=== PATIENT | male | born 1950 | race Caucasian/White ===

== ENCOUNTER 2017-02-25 12:12 | Day surgery (SDC) | payer MEDICARE ==
[2017-02-24 09:03] VITALS: BMI 30.1
[~2017-02-25 12:12] MED LIST: LIDOCAINE 1% 20 ML VIAL (10MG/ML) FOR IV START INTRADERMA PRN
[2017-02-25 12:41] VITALS: RESP 18; TEMP 98.8
[2017-02-25 12:57] LABS: Glucose,Whole Blood 141 mg/dL (75-99)
[2017-02-25] MEDS: LACTATED RINGERS 1,000 ML IV SCH ×2 (12:58→13:13)
[2017-02-25] MEDS ORDERED: ONDANSETRON 4 MG/2 ML VIAL IM STA (13:00)
[2017-02-25] MEDS ORDERED: LIDOCAINE 1% INJ 10MG/ML (20 ML MDV) ONE (13:15)
[2017-02-25] MEDS ORDERED: PROPOFOL 10 MG/ML 20 ML VIAL IV ONE (13:15)
--- NOTE | 2017-02-25 13:51 | P.PCN ---
Date of Procedure: 02/25/17 Procedure(s) Performed: Procedure: Total colonoscopy. Preoperative diagnosis: Screening for neoplasia. Postoperative diagnosis: Sigmoid diverticulosis with no evidence of acute diverticulitis, strictures, polyps or cancer. Preparation: HalfLytely prep. Sedation: Was provided by anesthesia. Brief clinical history: The patient is 66-year-old male who is referred for this evaluation for screening for neoplasia age being his risk factor. He had a prior exam around 9 years ago. At this time, he has no abdominal complaints, bleeding or anemia. No family history of colon cancer. Procedure: With the patient on his left lateral decubitus position and after informed consent and adequate sedation, the perianal area was inspected and it did not show any fissures or fistulas. There were no masses felt on digital rectal examination. The Olympus CFQ 160L video colonoscope was then inserted in the rectum in the usual fashion and advanced to the cecum. There were multiple diverticular orifices seen scattered in the sigmoid but I saw no evidence of acute diverticulitis or strictures. No obvious polyps or tumors were seen. I retroflexed endoscope in the rectum and the endoscope was withdrawn. The patient tolerated the procedure well. Plan: The patient was reassured. Discussed dietary measures. He will follow up with you as planned. I recommended repeat exam in 10 years.
[2017-02-25 14:07] VITALS: BP 130/71; PULSE 71
== END 2017-02-25 14:36 | disposition home or self-care (01) ==
LOC: ORWHC2ENDO 12:12
DX: Z12.11 Encounter for screening for malignant neoplasm of colon (principal); K57.30 Diverticulosis of large intestine without perforation or abscess without bleeding; E11.9 Type 2 diabetes mellitus without complications; I10 Essential (primary) hypertension; E78.5 Hyperlipidemia, unspecified; J45.909 Unspecified asthma, uncomplicated; Z91.09 Other allergy status, other than to drugs and biological substances; Z79.84 Long term (current) use of oral hypoglycemic drugs; Z79.51 Long term (current) use of inhaled steroids; Z79.899 Other long term (current) drug therapy
CPT/HCPCS: J2001; J2704; G0121; 45378

== ENCOUNTER 2019-10-24 17:40 | Inpatient (IN) | payer MEDICARE ==
[2019-10-24 17:46] LABS: Glucose,Whole Blood 270 mg/dL (75-99)
[2019-10-24] MEDS ORDERED: ONDANSETRON 4 MG/2 ML VIAL IVP STA (17:49)
[2019-10-24] MEDS ORDERED: fentaNYL (PF) 50 MCG/ML 2 ML AMP IVP STA ×2 (17:49→19:12)
[2019-10-24] MEDS ORDERED: SODIUM CHLORIDE 0.9% 1,000 ML IV STA (17:51)
[2019-10-24 18:11] LABS: Basophils # (A) 0.1 k/uL (0-0.2); Basophils % (A) 0 %; Eosinophils # (A) 0.3 k/uL (0-0.7); Eosinophils % (A) 1 %; HGB 14.4 gm/dL (13.0-17.5); Lymphocytes # (A) 2.5 k/uL (1.0-4.8); Lymphocytes % (A) 11 %; MCH 31.6 pg (25.0-35.0); MCHC 34.4 g/dL (31.0-37.0); MCV 91.9 fL (80.0-100.0); Mean Platelet Volume 7.2; Monocytes # (A) 1.1 k/uL (0-1.0); Monocytes % (A) 5 %; Neutrophils # (A) 18.9 k/uL (1.3-7.7); Neutrophils % (A) 82 %; Platelet Count 245 k/uL (150-450); RBC 4.57 m/uL (4.30-5.90); RDW 12.5 % (11.5-15.5)
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
--- NOTE | 2019-10-24 18:20 | XR ---
EXAMINATION TYPE: XR pelvis AP view DATE OF EXAM: 10/24/2019 COMPARISON: NONE HISTORY: Pain TECHNIQUE: Single view FINDINGS: Pelvic ring is intact. Proximal femurs and hip joints are intact and sacroiliac joints appe ar normal. IMPRESSION: Normal exam. No fracture seen.
[2019-10-24 18:23] LABS: ALT 44 U/L (21-72); AST 40 U/L (17-59); African American GFR (CKD) >90 (>60 ml/min/1.73 sqM); Alcohol <10 mg/dL; Alkaline Phosphatase 57 U/L (38-126); Amylase 59 U/L (30-110); Anion Gap 7 mmol/L; Blood Urea Nitrogen 38 mg/dL (9-20); Calcium 9.4 mg/dL (8.4-10.2); Carbon Dioxide 27 mmol/L (22-30); Chloride 106 mmol/L (98-107); Glucose 251 mg/dL (74-99); Non-African American GFR(CKD) >90 (>60 ml/min/1.73 sqM); Potassium 4.2 mmol/L (3.5-5.1); Sodium 140 mmol/L (137-145); Total Bilirubin 0.4 mg/dL (0.2-1.3); Total Protein 6.5 g/dL (6.3-8.2)
[2019-10-24] MEDS ORDERED: PIPERACILLIN-TAZOBACTAM 3.375 GM in SODIUM CHLORIDE 0.9% 100 ML IVPB STA (18:29)
[2019-10-24 18:41] LABS: Creatine Kinase MB 21.9 ng/mL (0.0-2.4); Troponin I <0.012 ng/mL (0.000-0.034)
[2019-10-24 18:42] LABS: INR 0.9 (<1.2); Prothrombin Time 10.2 sec (9.0-12.0)
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
[2019-10-24 18:45] LABS: Creatine Kinase 1124 U/L (55-170)
--- NOTE | 2019-10-24 18:46 | ED ---
Trauma HPI - General Chief Complaint: Trauma Stated Complaint: crushing injury Time Seen by Provider: 10/24/19 17:45 Source: EMS Mode of arrival: EMS Limitations: no limitations - History of Present Illness Initial Comments: The patient is a 69-year-old male with past history of asthma, diabetes and hypertension presents emergency room and after he was crushed by a bull. 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 He sustained blunt head trauma and possibly lost consciousness. No confusion or headaches reported from the patient. He did sustain severe facial trauma with multiple lac and epistaxis. Patient is most concerned with his left-sided posterior chest wall pain. States he cannot take a full breath because of the pain. He sustained blunt trauma to his thorax and abdomen. Patient also has a hematoma noted to his left forearm and bilateral anterior femurs. He was ambulatory after the incident. IV was established however the patient was not given any medications. Vitals were stable. The patient denies ripping or tearing sensation to his back. Denies any numbness or tingling in his extremities. No loss of range of motion. There are no other alleviating, precipitating or modifying factors - Related Data Home Medications Medication Instructions Recorded Confirmed Glimepiride [Amaryl] 2 mg PO AC-BRKFST 02/24/17 10/24/19 Lisinopril-Hctz 20-25 mg 1 tab PO DAILY 02/24/17 10/24/19 [Zestoretic 20-25] Venlafaxine HCl [Effexor] 75 mg PO TID 02/24/17 10/24/19 metFORMIN HCL 1,000 mg PO BID 02/24/17 10/24/19 Mometasone/Formoterol [Dulera 200 2 puff INHALATION BID 10/25/19 10/25/19 Mcg/5 Mcg Inhaler] Previous Rx's Medication Instructions Recorded Nystatin 100,000 Unit/ml Susp 500,000 unit PO QID #140 ml 10/29/19 [Mycostatin Oral Susp] Tamsulosin [Flomax] 0.4 mg PO PC-BRKFST #30 cap.er.24h 10/29/19 traMADol HCL 1 - 2 tab PO Q6HR PRN #30 tablet 10/29/19 Allergies Allergy/AdvReac Type Severity Reaction Status Date / Time hay Allergy Itching Uncoded 10/25/19 10:31 Review of Systems ROS Statement: Those systems with pertinent positive or pertinent negative responses have been documented in the HPI. ROS Other: All systems not noted in ROS Statement are negative. Past Medical History Past Medical History: Asthma, Diabetes Mellitus, Hyperlipidemia, Hypertension History of Any Multi-Drug Resistant Organisms: None Reported Additional Past Surgical History / Comment(s): colonoscopy Past Anesthesia/Blood Transfusion Reactions: No Reported Reaction Past Psychological History: Depression Smoking Status: Never smoker Past Alcohol Use History: None Reported Past Drug Use History: None Reported - Past Family History Father Family Medical History: Cancer General Exam Limitations: no limitations General appearance: alert, in distress Head exam: Present: other (4 lacerations noted - left forehead measuring 2.0 x 0.5 cm each. There are parallel to each other. Mild involvement of the subq tissue. No deep structure involvement. Right philtrum laceration measures 5.0 x 2.0 cm. Deep involvement in the dermis but no damage to vascular structures. Does not communicate to the oral cavity. Left jaw laceration measures 6.0 x 2.0 cm. Underlying mandible is visible. No damage to vascular or nerve structures. No retained foreign bodies. No step offs appreciated. ) Eye exam: Present: PERRL, EOMI, periorbital swelling, other (no entraptment identified) Pupils: Present: normal accommodation ENT exam: Present: other (epistaxis bilaterally. ) Neck exam: Present: normal inspection, other (c-collar in place). Absent: tenderness Respiratory exam: Present: rales (left side), chest wall tenderness, decreased breath sounds, other (patient is splinting and refuses to take a deep breath. he has tenderness to palpation of the left chest wall, anterior middle ribs and posterior superior ribs. ). Absent: wheezes, rhonchi Cardiovascular Exam: Present: regular rate, normal rhythm GI/Abdominal exam: Present: soft. Absent: distended, tenderness, guarding, rebound, rigid Rectal exam: Present: normal rectal tone exam: Present: other (abrasion right groin) Extremities exam: Present: tenderness (anterior thighs bilaterally with ecchymosis. Hematoma left dorsal forearm. ) Back exam: Present: paraspinal tenderness (thoracic and lumbar) Neurological exam: Present: alert, oriented X3, CN II-XII intact Psychiatric exam: Present: normal affect, normal mood Skin exam: Present: warm, dry, intact Course Vital Signs 10/24/19 10/24/19 17:44 20:51 Temperature 97.7 F Pulse Rate 65 64 Respiratory 16 18 Rate Blood Pressure 110/81 98/63 O2 Sat by Pulse 95 99 Oximetry Procedures - FAST Exam Fluid in Morison's pouch: No Fluid in Splenorenal Junction: No Fluid around bladder, Transverse view: No Fluid around bladder, Sagittal view: No Limited Echocardiogram view: parasternal Fluid in Pericardial Sac: No Gross Wall Motion Abnormality: No Study normal for this patient: Yes Images saved for further review: Yes - Laceration Laceration #1 Consent Obtained: verbal consent Indication: laceration Site: face, other (left eyebrow) Size (cm): 2 (cm - two lacerations both with this measurement) Description: linear Depth: simple, single layer Anesthetic Used: lidocaine 1%, without epi Amount (mls): 2 (cc) Pre-repair: wound explored, irrigated extensively, deep structures intact Type of Sutures: nylon Size of Sutures: 6-0 Number of Sutures: 3 (sutures performed between the 2 lacerations, 1 in the top laceration and 2 in the bottom laceration) Technique: simple, interrupted Patient Tolerated Procedure: well, no complications Laceration #2 Consent Obtained: verbal consent Indication: laceration Site: other (right philtrum) Size (cm): 5 (cm) Description: linear Depth: involves muscle layer Anesthetic Used: lidocaine 1%, without epi Anesthesia Technique: local infiltration Amount (mls): 3 (cc) Pre-repair: wound explored, irrigated extensively, deep structures intact Type of Sutures: nylon Size of Sutures: 6-0 Number of Sutures: 4 (nylon sutures, 2 additional 6-0 vicryl sutures in the subq tissue) Technique: simple, interrupted Patient Tolerated Procedure: well, no complications Laceration #3 Consent Obtained: verbal consent Indication: laceration Site: other (left jaw) Size (cm): 6 (cm) Description: linear Depth: involves muscle layer Anesthetic Used: lidocaine 1%, without epi Amount (mls): 4 (cc) Pre-repair: wound explored, irrigated extensively Type of Sutures: nylon Size of Sutures: 6-0 Number of Sutures: 7 (superficial nylon sutures with 2 additional 6-0 vicryl sutures reapproximating the subq tissue) Technique: simple, interrupted Patient Tolerated Procedure: well, no complications Medical Decision Making - Medical Decision Making Upon arrival the patient is promptly placed in trauma bay 2. Initial assessment demonstrates the airway is patent. The patient has poor inspiratory effort therefore breath sounds are difficult to auscultate. He does have 2+ upper and lower external pulses. Disability is assessed and the patient is alert and oriented 3. We did place him in a c-collar. He arrives on a backboard. Pupils are 4-2 bilaterally. He does have a laceration noted over the left eye brow, right sided philtrum and left jaw. A second IV line is started. 12-lead EKG is performed. I also performed an e-FAST exam which was negative. The patient is rolled and has multiple areas of ecchymosis noted to his bilateral paraspinal regions. The patient does not have tenderness to palpation of the spinous processes. He maintains rectal tone. A portable chest and pelvic x-ray was performed which demonstrated no acute fractures or pneumothoraces. Laboratory studies were conducted and the patient went for multiple imaging modalities. Lab studies demonstrate a low blood cell count of 23,000. BNP 138, 270, lactic acid 3.1, CK 1124. Serum alcohol less than 10. CT of the head and cervical spine demonstrates left frontal scalp hematoma Or sinusitis no intracranial abnormality. No fractures are in CT of the chest abdomen and pelvis demonstrates multiple left-sided rib fractures. This includes a nondisplaced fracture of the posterior left second rib. Fracture of the left p osterior third rib at the costovertebral junction. On displaced fracture of the anterior left seventh rib and probable fracture of the anterior left sixth rib. There is a small adjacent pleural effusion. Thoracic and lumbar spine CT demonstrates no acute vertebral fractures. Facial CT demonstrates left frontal scalp soft tissue swelling and hematoma with no fractures formarm x-ray shows posterior soft tissue swelling with no fracture. 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 I did perform suture repair the patient's facial lacerations with sterile technique. 2 lacerations above the left eyebrow do take 3 sutures total. The right philtrum laceration takes 2 subcutaneous stitches and 4 superficial stitches. The left jaw laceration does expose down to the bone. He performed 2 subcutaneous stitches as well as 7 superficial stitches. I discussed results with the patient and his family at bedside. I did recommend hospital admission for pain control. The patient did agree to this. Dr. Matos because presents to the emergency room and evaluates the patient herself. The patient is then transported to the floor in stable condition - Lab Data Result diagrams: 11/01/19 06:25 10/31/19 06:51 Lab Results 10/24/19 10/24/19 10/24/19 Range/Units 17:44 17:52 17:52 WBC 23.0 H (3.8-10.6) k/uL RBC 4.57 (4.30-5.90) m/uL Hgb 14.4 (13.0-17.5) gm/dL Hct 42.0 (39.0-53.0) % MCV 91.9 (80.0-100.0) fL MCH 31.6 (25.0-35.0) pg MCHC 34.4 (31.0-37.0) g/dL RDW 12.5 (11.5-15.5) % Plt Count 245 (150-450) k/uL Neutrophils % 82 % Lymphocytes % 11 % Monocytes % 5 % Eosinophils % 1 % Basophils % 0 % Neutrophils # 18.9 H (1.3-7.7) k/uL Lymphocytes # 2.5 (1.0-4.8) k/uL Monocytes # 1.1 H (0-1.0) k/uL Eosinophils # 0.3 (0-0.7) k/uL Basophils # 0.1 (0-0.2) k/uL PT (9.0-12.0) sec INR (<1.2) APTT (22.0-30.0) sec Sodium 140 (137-145) mmol/L Potassium 4.2 (3.5-5.1) mmol/L Chloride 106 (98-107) mmol/L Carbon Dioxide 27 (22-30) mmol/L Anion Gap 7 mmol/L BUN 38 H (9-20) mg/dL Creatinine 0.83 (0.66-1.25) mg/dL Est GFR (CKD-EPI)AfAm >90 (>60 ml/min/1.73 sqM) Est GFR (CKD-EPI)NonAf >90 (>60 ml/min/1.73 sqM) Glucose 251 H (74-99) mg/dL POC Glucose (mg/dL) 270 H (75-99) mg/dL POC Glu Fish Culturist ID Shayna Poole Lactic Ac Sepsis Rflx Plasma Lactic Acid Nathanael (0.7-2.0) mmol/L Calcium 9.4 (8.4-10.2) mg/dL Total Bilirubin 0.4 (0.2-1.3) mg/dL AST 40 (17-59) U/L ALT 44 (21-72) U/L Alkaline Phosphatase 57 (38-126) U/L Creatine Kinase (55-170) U/L Total Creatine Kinase (55-170) U/L CK-MB (CK-2) (0.0-2.4) ng/mL CK-MB (CK-2) Rel Index Myoglobin (28-72) ng/mL Troponin I (0.000-0.034) ng/mL Total Protein 6.5 (6.3-8.2) g/dL Albumin 4.0 (3.5-5.0) g/dL Amylase 59 (30-110) U/L Lipase 75 (23-300) U/L Urine Color Urine Appearance (Clear) Urine pH (5.0-8.0) Ur Specific [place] (1.001-1.035) Urine Protein (Negative) Urine Glucose (UA) (Negative) Urine Ketones (Negative) Urine Blood (Negative) Urine Nitrite (Negative) Urine Bilirubin (Negative) Urine Urobilinogen (<2.0) mg/dL Ur Leukocyte Esterase (Negative) Urine RBC (0-5) /hpf Urine WBC (0-5) /hpf Ur Squamous Epith Cells (0-4) /hpf Urine Bacteria (None) /hpf Hyaline Casts (0-2) /lpf Urine Mucus (None) /hpf Urine Opiates Screen (NotDetected) Ur Oxycodone Screen (NotDetected) Urine Methadone Screen (NotDetected) Ur Propoxyphene Screen (NotDetected) Ur Barbiturates Screen (NotDetected) U Tricyclic Antidepress (NotDetected) Ur Phencyclidine Scrn (NotDetected) Ur Amphetamines Screen (NotDetected) U Methamphetamines Scrn (NotDetected) U Benzodiazepines Scrn (NotDetected) Urine Cocaine Screen (NotDetected) U Marijuana (THC) Screen (NotDetected) Serum Alcohol <10 mg/dL Blood Type Blood Type Confirm Blood Type Recheck Bld Type Recheck Status Antibody Screen Spec Expiration Date 10/24/19 10/24/19 10/24/19 Range/Units 17:52 17:52 17:52 WBC (3.8-10.6) k/uL RBC (4.30-5.90) m/uL Hgb (13.0-17.5) gm/dL Hct (39.0-53.0) % MCV (80.0-100.0) fL MCH (25.0-35.0) pg MCHC (31.0-37.0) g/dL RDW (11.5-15.5) % Plt Count (150-450) k/uL Neutrophils % % Lymphocytes % % Monocytes % % Eosinophils % % Basophils % % Neutrophils # (1.3-7.7) k/uL Lymphocytes # (1.0-4.8) k/uL Monocytes # (0-1.0) k/uL Eosinophils # (0-0.7) k/uL Basophils # (0-0.2) k/uL PT 10.2 (9.0-12.0) sec INR 0.9 (<1.2) APTT 21.0 L (22.0-30.0) sec Sodium (137-145) mmol/L Potassium (3.5-5.1) mmol/L Chloride (98-107) mmol/L Carbon Dioxide (22-30) mmol/L Anion Gap mmol/L BUN (9-20) mg/dL Creatinine (0.66-1.25) mg/dL Est GFR (CKD-EPI)AfAm (>60 ml/min/1.73 sqM) Est GFR (CKD-EPI)NonAf (>60 ml/min/1.73 sqM) Glucose (74-99) mg/dL POC Glucose (mg/dL) (75-99) mg/dL POC Glu Fish Culturist ID Lactic Ac Sepsis Rflx Plasma Lactic Acid Nathanael 3.4 H* (0.7-2.0) mmol/L Calcium (8.4-10.2) mg/dL Total Bilirubin (0.2-1.3) mg/dL AST (17-59) U/L ALT (21-72) U/L Alkaline Phosphatase (38-126) U/L Creatine Kinase (55-170) U/L Total Creatine Kinase 1124 H* (55-170) U/L CK-MB (CK-2) 21.9 H (0.0-2.4) ng/mL CK-MB (CK-2) Rel Index 1.9 Myoglobin (28-72) ng/mL Troponin I <0.012 (0.000-0.034) ng/mL Total Protein (6.3-8.2) g/dL Albumin (3.5-5.0) g/dL Amylase (30-110) U/L Lipase (23-300) U/L Urine Color Urine Appearance (Clear) Urine pH (5.0-8.0) Ur Specific [place] (1.001-1.035) Urine Protein (Negative) Urine Glucose (UA) (Negative) Urine Ketones (Negative) Urine Blood (Negative) Urine Nitrite (Negative) Urine Bilirubin (Negative) Urine Urobilinogen (<2.0) mg/dL Ur Leukocyte Esterase (Negative) Urine RBC (0-5) /hpf Urine WBC (0-5) /hpf Ur Squamous Epith Cells (0-4) /hpf Urine Bacteria (None) /hpf Hyaline Casts (0-2) /lpf Urine Mucus (None) /hpf Urine Opiates Screen (NotDetected) Ur Oxycodone Screen (NotDetected) Urine Methadone Screen (NotDetected) Ur Propoxyphene Screen (NotDetected) Ur Barbiturates Screen (NotDetected) U Tricyclic Antidepress (NotDetected) Ur Phencyclidine Scrn (NotDetected) Ur Amphetamines Screen (NotDetected) U Methamphetamines Scrn (NotDetected) U Benzodiazepines Scrn (NotDetected) Urine Cocaine Screen (NotDetected) U Marijuana (THC) Screen (NotDetected) Serum Alcohol mg/dL Blood Type Blood Type Confirm Blood Type Recheck Bld Type Recheck Status Antibody Screen Spec Expiration Date 10/24/19 10/24/19 10/24/19 Range/Units 17:52 18:16 18:27 WBC (3.8-10.6) k/uL RBC (4.30-5.90) m/uL Hgb (13.0-17.5) gm/dL Hct (39.0-53.0) % MCV (80.0-100.0) fL MCH (25.0-35.0) pg MCHC (31.0-37.0) g/dL RDW (11.5-15.5) % Plt Count (150-450) k/uL Neutrophils % % Lymphocytes % % Monocytes % % Eosinophils % % Basophils % % Neutrophils # (1.3-7.7) k/uL Lymphocytes # (1.0-4.8) k/uL Monocytes # (0-1.0) k/uL Eosinophils # (0-0.7) k/uL Basophils # (0-0.2) k/uL PT (9.0-12.0) sec INR (<1.2) APTT (22.0-30.0) sec Sodium (137-145) mmol/L Potassium (3.5-5.1) mmol/L Chloride (98-107) mmol/L Carbon Dioxide (22-30) mmol/L Anion Gap mmol/L BUN (9-20) mg/dL Creatinine (0.66-1.25) mg/dL Est GFR (CKD-EPI)AfAm (>60 ml/min/1.73 sqM) Est GFR (CKD-EPI)NonAf (>60 ml/min/1.73 sqM) Glucose (74-99) mg/dL POC Glucose (mg/dL) (75-99) mg/dL POC Glu Fish Culturist ID Lactic Ac Sepsis Rflx Y Plasma Lactic Acid Nathanael (0.7-2.0) mmol/L Calcium (8.4-10.2) mg/dL Total Bilirubin (0.2-1.3) mg/dL AST (17-59) U/L ALT (21-72) U/L Alkaline Phosphatase (38-126) U/L Creatine Kinase (55-170) U/L Total Creatine Kinase (55-170) U/L CK-MB (CK-2) (0.0-2.4) ng/mL CK-MB (CK-2) Rel Index Myoglobin (28-72) ng/mL Troponin I (0.000-0.034) ng/mL Total Protein (6.3-8.2) g/dL Albumin (3.5-5.0) g/dL Amylase (30-110) U/L Lipase (23-300) U/L Urine Color Urine Appearance (Clear) Urine pH (5.0-8.0) Ur Specific [place] (1.001-1.035) Urine Protein (Negative) Urine Glucose (UA) (Negative) Urine Ketones (Negative) Urine Blood (Negative) Urine Nitrite (Negative) Urine Bilirubin (Negative) Urine Urobilinogen (<2.0) mg/dL Ur Leukocyte Esterase (Negative) Urine RBC (0-5) /hpf Urine WBC (0-5) /hpf Ur Squamous Epith Cells (0-4) /hpf Urine Bacteria (None) /hpf Hyaline Casts (0-2) /lpf Urine Mucus (None) /hpf Urine Opiates Screen (NotDetected) Ur Oxycodone Screen (NotDetected) Urine Methadone Screen (NotDetected) Ur Propoxyphene Screen (NotDetected) Ur Barbiturates Screen (NotDetected) U Tricyclic Antidepress (NotDetected) Ur Phencyclidine Scrn (NotDetected) Ur Amphetamines Screen (NotDetected) U Methamphetamines Scrn (NotDetected) U Benzodiazepines Scrn (NotDetected) Urine Cocaine Screen (NotDetected) U Marijuana (THC) Screen (NotDetected) Serum Alcohol mg/dL Blood Type A Positive Blood Type Confirm A Positive Blood Type Recheck No Previous Record Bld Type Recheck Status CABO Indicated Antibody Screen NEGATIVE Spec Expiration Date 10/27/2019235110/24/19 10/24/19 10/24/19 Range/Units 22:56 23:23 23:43 WBC (3.8-10.6) k/uL RBC (4.30-5.90) m/uL Hgb (13.0-17.5) gm/dL Hct (39.0-53.0) % MCV (80.0-100.0) fL MCH (25.0-35.0) pg MCHC (31.0-37.0) g/dL RDW (11.5-15.5) % Plt Count (150-450) k/uL Neutrophils % % Lymphocytes % % Monocytes % % Eosinophils % % Basophils % % Neutrophils # (1.3-7.7) k/uL Lymphocytes # (1.0-4.8) k/uL Monocytes # (0-1.0) k/uL Eosinophils # (0-0.7) k/uL Basophils # (0-0.2) k/uL PT (9.0-12.0) sec INR (<1.2) APTT (22.0-30.0) sec Sodium (137-145) mmol/L Potassium (3.5-5.1) mmol/L Chloride (98-107) mmol/L Carbon Dioxide (22-30) mmol/L Anion Gap mmol/L BUN (9-20) mg/dL Creatinine (0.66-1.25) mg/dL Est GFR (CKD-EPI)AfAm (>60 ml/min/1.73 sqM) Est GFR (CKD-EPI)NonAf (>60 ml/min/1.73 sqM) Glucose (74-99) mg/dL POC Glucose (mg/dL) 310 H (75-99) mg/dL POC Glu Fish Culturist ID Rick Marks Lactic Ac Sepsis Rflx Y Plasma Lactic Acid Nathanael 3.7 H* (0.7-2.0) mmol/L Calcium (8.4-10.2) mg/dL Total Bilirubin (0.2-1.3) mg/dL AST (17-59) U/L ALT (21-72) U/L Alkaline Phosphatase (38-126) U/L Creatine Kinase (55-170) U/L Total Creatine Kinase (55-170) U/L CK-MB (CK-2) (0.0-2.4) ng/mL CK-MB (CK-2) Rel Index Myoglobin (28-72) ng/mL Troponin I (0.000-0.034) ng/mL Total Protein (6.3-8.2) g/dL Albumin (3.5-5.0) g/dL Amylase (30-110) U/L Lipase (23-300) U/L Urine Color Urine Appearance (Clear) Urine pH (5.0-8.0) Ur Specific [place] (1.001-1.035) Urine Protein (Negative) Urine Glucose (UA) (Negative) Urine Ketones (Negative) Urine Blood (Negative) Urine Nitrite (Negative) Urine Bilirubin (Negative) Urine Urobilinogen (<2.0) mg/dL Ur Leukocyte Esterase (Negative) Urine RBC (0-5) /hpf Urine WBC (0-5) /hpf Ur Squamous Epith Cells (0-4) /hpf Urine Bacteria (None) /hpf Hyaline Casts (0-2) /lpf Urine Mucus (None) /hpf Urine Opiates Screen (NotDetected) Ur Oxycodone Screen (NotDetected) Urine Methadone Screen (NotDetected) Ur Propoxyphene Screen (NotDetected) Ur Barbiturates Screen (NotDetected) U Tricyclic Antidepress (NotDetected) Ur Phencyclidine Scrn (NotDetected) Ur Amphetamines Screen (NotDetected) U Methamphetamines Scrn (NotDetected) U Benzodiazepines Scrn (NotDetected) Urine Cocaine Screen (NotDetected) U Marijuana (THC) Screen (NotDetected) Serum Alcohol mg/dL Blood Type Blood Type Confirm Blood Type Recheck Bld Type Recheck Status Antibody Screen Spec Expiration Date 10/25/19 10/25/19 10/25/19 Range/Units 02:33 02:33 03:05 WBC 18.8 H (3.8-10.6) k/uL RBC 3.88 L (4.30-5.90) m/uL Hgb 12.2 L (13.0-17.5) gm/dL Hct 36.0 L (39.0-53.0) % MCV 92.6 (80.0-100.0) fL MCH 31.4 (25.0-35.0) pg MCHC 33.9 (31.0-37.0) g/dL RDW 12.6 (11.5-15.5) % Plt Count 236 (150-450) k/uL Neutrophils % 88 % Lymphocytes % 4 % Monocytes % 8 % Eosinophils % 0 % Basophils % 0 % Neutrophils # 16.5 H (1.3-7.7) k/uL Lymphocytes # 0.7 L (1.0-4.8) k/uL Monocytes # 1.5 H (0-1.0) k/uL Eosinophils # 0.0 (0-0.7) k/uL Basophils # 0.0 (0-0.2) k/uL PT (9.0-12.0) sec INR (<1.2) APTT (22.0-30.0) sec Sodium (137-145) mmol/L Potassium (3.5-5.1) mmol/L Chloride (98-107) mmol/L Carbon Dioxide (22-30) mmol/L Anion Gap mmol/L BUN (9-20) mg/dL Creatinine (0.66-1.25) mg/dL Est GFR (CKD-EPI)AfAm (>60 ml/min/1.73 sqM) Est GFR (CKD-EPI)NonAf (>60 ml/min/1.73 sqM) Glucose (74-99) mg/dL POC Glucose (mg/dL) (75-99) mg/dL POC Glu Fish Culturist ID Lactic Ac Sepsis Rflx Plasma Lactic Acid Nathanael (0.7-2.0) mmol/L Calcium (8.4-10.2) mg/dL Total Bilirubin (0.2-1.3) mg/dL AST (17-59) U/L ALT (21-72) U/L Alkaline Phosphatase (38-126) U/L Creatine Kinase (55-170) U/L Total Creatine Kinase (55-170) U/L CK-MB (CK-2) (0.0-2.4) ng/mL CK-MB (CK-2) Rel Index Myoglobin (28-72) ng/mL Troponin I (0.000-0.034) ng/mL Total Protein (6.3-8.2) g/dL Albumin (3.5-5.0) g/dL Amylase (30-110) U/L Lipase (23-300) U/L Urine Color Yellow Urine Appearance Clear (Clear) Urine pH 5.5 (5.0-8.0) Ur Specific [place] 1.044 H (1.001-1.035) Urine Protein 2+ H (Negative) Urine Glucose (UA) 2+ H (Negative) Urine Ketones Negative (Negative) Urine Blood Moderate H (Negative) Urine Nitrite Negative (Negative) Urine Bilirubin Negative (Negative) Urine Urobilinogen <2.0 (<2.0) mg/dL Ur Leukocyte Esterase Negative (Negative) Urine RBC 1 (0-5) /hpf Urine WBC 1 (0-5) /hpf Ur Squamous Epith Cells <1 (0-4) /hpf Urine Bacteria Rare H (None) /hpf Hyaline Casts 3 H (0-2) /lpf Urine Mucus Rare H (None) /hpf Urine Opiates Screen Detected H (NotDetected) Ur Oxycodone Screen Not Detected (NotDetected) Urine Methadone Screen Not Detected (NotDetected) Ur Propoxyphene Screen Not Detected (NotDetected) Ur Barbiturates Screen Not Detected (NotDetected) U Tricyclic Antidepress Not Detected (NotDetected) Ur Phencyclidine Scrn Not Detected (NotDetected) Ur Amphetamines Screen Not Detected (NotDetected) U Methamphetamines Scrn Not Detected (NotDetected) U Benzodiazepines Scrn Not Detected (NotDetected) Urine Cocaine Screen Not Detected (NotDetected) U Marijuana (THC) Screen Not Detected (NotDetected) Serum Alcohol mg/dL Blood Type Blood Type Confirm Blood Type Recheck Bld Type Recheck Status Antibody Screen Spec Expiration Date 10/25/19 10/25/19 10/25/19 Range/Units 03:05 03:05 03:05 WBC (3.8-10.6) k/uL RBC (4.30-5.90) m/uL Hgb (13.0-17.5) gm/dL Hct (39.0-53.0) % MCV (80.0-100.0) fL MCH (25.0-35.0) pg MCHC (31.0-37.0) g/dL RDW (11.5-15.5) % Plt Count (150-450) k/uL Neutrophils % % Lymphocytes % % Monocytes % % Eosinophils % % Basophils % % Neutrophils # (1.3-7.7) k/uL Lymphocytes # (1.0-4.8) k/uL Monocytes # (0-1.0) k/uL Eosinophils # (0-0.7) k/uL Basophils # (0-0.2) k/uL PT (9.0-12.0) sec INR (<1.2) APTT (22.0-30.0) sec Sodium 141 (137-145) mmol/L Potassium 4.0 (3.5-5.1) mmol/L Chloride 108 H (98-107) mmol/L Carbon Dioxide 23 (22-30) mmol/L Anion Gap 10 mmol/L BUN 47 H (9-20) mg/dL Creatinine 1.34 H (0.66-1.25) mg/dL Est GFR (CKD-EPI)AfAm 63 (>60 ml/min/1.73 sqM) Est GFR (CKD-EPI)NonAf 54 (>60 ml/min/1.73 sqM) Glucose 249 H (74-99) mg/dL POC Glucose (mg/dL) (75-99) mg/dL POC Glu Fish Culturist ID Lactic Ac Sepsis Rflx Plasma Lactic Acid Nathanael 3.2 H* (0.7-2.0) mmol/L Calcium 8.5 (8.4-10.2) mg/dL Total Bilirubin (0.2-1.3) mg/dL AST (17-59) U/L ALT (21-72) U/L Alkaline Phosphatase (38-126) U/L Creatine Kinase (55-170) U/L Total Creatine Kinase (55-170) U/L CK-MB (CK-2) (0.0-2.4) ng/mL CK-MB (CK-2) Rel Index Myoglobin 9948 H (28-72) ng/mL Troponin I (0.000-0.034) ng/mL Total Protein (6.3-8.2) g/dL Albumin (3.5-5.0) g/dL Amylase (30-110) U/L Lipase (23-300) U/L Urine Color Urine Appearance (Clear) Urine pH (5.0-8.0) Ur Specific [place] (1.001-1.035) Urine Protein (Negative) Urine Glucose (UA) (Negative) Urine Ketones (Negative) Urine Blood (Negative) Urine Nitrite (Negative) Urine Bilirubin (Negative) Urine Urobilinogen (<2.0) mg/dL Ur Leukocyte Esterase (Negative) Urine RBC (0-5) /hpf Urine WBC (0-5) /hpf Ur Squamous Epith Cells (0-4) /hpf Urine Bacteria (None) /hpf Hyaline Casts (0-2) /lpf Urine Mucus (None) /hpf Urine Opiates Screen (NotDetected) Ur Oxycodone Screen (NotDetected) Urine Methadone Screen (NotDetected) Ur Propoxyphene Screen (NotDetected) Ur Barbiturates Screen (NotDetected) U Tricyclic Antidepress (NotDetected) Ur Phencyclidine Scrn (NotDetected) Ur Amphetamines Screen (NotDetected) U Methamphetamines Scrn (NotDetected) U

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
--- NOTE | 2019-10-24 20:02 | XR ---
EXAMINATION TYPE: XR femur bilateral DATE OF EXAM: 10/24/2019 COMPARISON: NONE HISTORY: Crush injury. Pain. TECHNIQUE: 4 views each femur FINDINGS: Proximal femurs and hip joints appear intact. Knee joints appear intact. There is some oste oarthritis in the knee joints bilaterally. I see no fracture. Hip joint spaces are fairly normal. IMPRESSION: There is some knee joint osteoarthritis. No fracture seen.
--- NOTE | 2019-10-24 20:03 | XR ---
EXAMINATION TYPE: XR knee 4V bilateral DATE OF EXAM: 10/24/2019 COMPARISON: NONE HISTORY: Pain and injury TECHNIQUE: 4 views each knee FINDINGS: There is narrowing of the medial joint spaces of both knees. There is spurring of the femor al and tibial condyles. There is mild genu varus. I see no fracture nor dislocation. There is no sign of joint effusion. There is bilateral spurring on the anterior patella. IMPRESSION: Osteoarthritis. No fracture seen.
[2019-10-24] MEDS ORDERED: DIPH,PERTUS(ACELL)TETVAC-LF 0.5 ML VIAL IM ONE (20:12)
[2019-10-24] MEDS ORDERED: LIDOCAINE 1% INJ 10MG/ML (20 ML MDV) SQ ONE (20:13)
[2019-10-24] MEDS ORDERED: MORPHINE SULFATE 4 MG/ML SYRINGE IV PRN (20:18)
[2019-10-24] MEDS ORDERED: NALOXONE 0.4 MG/ML 1 ML VIAL IV PRN (20:18)
[2019-10-24] MEDS: SODIUM CHLORIDE 0.9% 1,000 ML IV SCH (20:57)
[2019-10-24] MEDS ORDERED: DIAZEPAM 5 MG/ML 2 ML INJ IVP PRN (21:00)
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
[2019-10-24] MEDS: ONDANSETRON 4 MG/2 ML VIAL IVP PRN (21:11)
[2019-10-24] MEDS: KETOROLAC 30 MG/ML 1 ML VIAL IVP SCH (21:12)
[2019-10-24] MEDS: INSULIN ASPART (NovoLOG) 100 UNIT/ML VIAL SQ SCH (23:31)
[2019-10-24] MEDS: FAMOTIDINE 20 MG TAB PO SCH (23:32)
[2019-10-24 23:43] LABS: Glucose,Whole Blood 310 mg/dL (75-99)
[2019-10-25] MEDS: FAMOTIDINE 20 MG TAB PO SCH ×2 (00:15→10:01)
[2019-10-25] MEDS: ACETAMINOPHEN TAB 325 MG TAB PO SCH ×5 (00:41→22:39)
[2019-10-25] MEDS: KETOROLAC 30 MG/ML 1 ML VIAL IVP SCH ×2 (02:01→10:01)
[2019-10-25 02:51] LABS: Appearance,Urine Clear (Clear); Bacteria,Urine Rare /hpf; Bilirubin,Urine Negative (Negative); Blood,Urine Moderate (Negative); Color,Urine Yellow; Glucose,Urine (UA) 2+ (Negative); Hyaline Casts,Urine 3 /lpf (0-2); Ketones,Urine Negative (Negative); Leukocyte Esterase,Urine Negative (Negative); Mucus,Urine Rare /hpf; Nitrite,Urine Negative (Negative); PH, Urine 5.5 (5.0-8.0); Protein,Urine 2+ (Negative); RBC,Urine 1 /hpf (0-5); Specific Gravity,Urine 1.044 (1.001-1.035); Squamous Epithelial Cell,Urine <1 /hpf (0-4); Urobilinogen,Urine <2.0 mg/dL (<2.0); WBC,Urine 1 /hpf (0-5)
[2019-10-25 03:00] LABS: Amphetamine Screen,Urine Not Detected (NotDetected); Barbiturate Screen,Urine Not Detected (NotDetected); Benzodiazepines Screen,Urine Not Detected (NotDetected); Cocaine Screen,Urine Not Detected (NotDetected); Methadone Screen, Urine Not Detected (NotDetected); Opiate Screen,Urine Detected (NotDetected); Oxycodone Screen, Urine Not Detected (NotDetected); Phencyclidine Screen,Urine Not Detected (NotDetected); Tricyclic Antidepressant,Urine Not Detected (NotDetected); Urn Cannabinoid Scrn Not Detected (NotDetected)
[2019-10-25 03:38] LABS: Calcium 8.5 mg/dL (8.4-10.2)
[2019-10-25 03:41] LABS: Glucose,Whole Blood 271 mg/dL (75-99)
[2019-10-25] MEDS: ONDANSETRON 4 MG/2 ML VIAL IVP PRN (03:44)
[2019-10-25 03:45] LABS: Basophils % (A) 0 %; Eosinophils % (A) 0 %; HGB 12.2 gm/dL (13.0-17.5); Lymphocytes # (A) 0.7 k/uL (1.0-4.8); Lymphocytes % (A) 4 %; MCH 31.4 pg (25.0-35.0); MCHC 33.9 g/dL (31.0-37.0); MCV 92.6 fL (80.0-100.0); Mean Platelet Volume 7.3; Monocytes # (A) 1.5 k/uL (0-1.0); Monocytes % (A) 8 %; Neutrophils # (A) 16.5 k/uL (1.3-7.7); Neutrophils % (A) 88 %; Platelet Count 236 k/uL (150-450); RBC 3.88 m/uL (4.30-5.90); RDW 12.6 % (11.5-15.5); WBC 18.8 k/uL (3.8-10.6)
[2019-10-25] MEDS: HYDROmorphone 0.5 MG/0.5 ML SYRINGE IVP PRN ×2 (04:01→16:14)
[2019-10-25] MEDS: SODIUM CHLORIDE 0.9% 1,000 ML IV SCH ×3 (05:42→20:32)
[2019-10-25 07:07] LABS: Glucose,Whole Blood 267 mg/dL (75-99)
[2019-10-25] MEDS: METOCLOPRAMIDE 5 MG/ML 2 ML VIAL IVP PRN ×2 (07:07)
[2019-10-25] MEDS ORDERED: SODIUM CHLORIDE 0.9% 500 ML 250 ML IV ONE (07:33)
[2019-10-25] MEDS: INSULIN ASPART (NovoLOG) 100 UNIT/ML VIAL SQ SCH ×4 (07:38→21:37)
[2019-10-25] MEDS ORDERED: SODIUM CHLORIDE 0.9% 500 ML 500 ML IV ONE (08:31)
--- NOTE | 2019-10-25 09:31 | P.PN ---
Subjective Progress Note Date: 10/25/19 Principal diagnosis: Crush injury The patient is a 69-year-old man who was attacked by a bull yesterday. He continues to have some generalized pain. The majority of the pain is over the left hemithorax and when he moves. The patient has been able to sit at the edge of the bed, it causes less pain but he does get some nausea. Through the night he had a few emesis with some bloody fluid. That has cleared up. Patient does have obvious nasal trauma and had epistaxis, likely the blood was swallowed from the epistaxis. He denies any abdominal pain. The patient did have urinary retention and was catheterized through the night. An indwelling catheter is now in place. Denies any shortness of breath. Objective - Vital Signs Vital signs: Vital Signs Temp 97.6 F 10/25/19 07:00 Pulse 86 10/25/19 07:00 Resp 18 10/25/19 07:00 BP 113/59 10/25/19 07:00 Pulse Ox 93 L 10/25/19 07:00 Intake & Output 10/24/19 10/25/19 10/25/19 18:59 06:59 18:59 Intake Total 600 Output Total 350 50 Balance 250 -50 Weight 107.501 kg 107.501 kg Intake: Intake, IV Titration 600 Amount Sodium Chloride 0.9% 1, 600 000 ml @ 100 mls/hr IV . Q10H COUNTS INCLUDE 234 BEDS AT THE [facility] Rx#:[id number] Output: Urine 350 50 Straight 350 Uretheral (Bailey) 50 - Constitutional General appearance: Present: average body habitus - EENT EENT Comment(s): Left periorbital ecchymosis. Ecchymosis around the nose with dried blood in the nares Eyes: Present: EOMI - Neck Details: Trachea midline - Respiratory Respiratory: bilateral: CTA, diminished, negative: rhonchi, wheezing - Cardiovascular Rhythm: regular - Gastrointestinal General gastrointestinal: Present: normal bowel sounds, rigid. Absent: tenderness - Genitourinary Genitourinary Comment(s): Mild scrotal ecchymosis without significant edema. Indwelling Bailey is in place with a small amount of light yellow urine - Integumentary Integumentary Comment(s): Multiple areas of ecchymosis and abrasions along the upper and lower extremities - Musculoskeletal Musculoskeletal Comment(s): Muscle tenderness along the broad muscles of the upper back, the muscle bodies feel fairly soft. The muscles of the upper and lower extremities are soft - Labs CBC & Chem 7: 10/25/19 03:05 10/25/19 03:05 Labs: Abnormal Lab Results - Last 24 Hours (Table) 10/24/19 10/24/19 10/24/19 Range/Units 17:44 17:52 17:52 WBC 23.0 H (3.8-10.6) k/uL RBC (4.30-5.90) m/uL Hgb (13.0-17.5) gm/dL Hct (39.0-53.0) % Neutrophils # 18.9 H (1.3-7.7) k/uL Lymphocytes # (1.0-4.8) k/uL Monocytes # 1.1 H (0-1.0) k/uL APTT (22.0-30.0) sec Chloride (98-107) mmol/L BUN 38 H (9-20) mg/dL Creatinine (0.66-1.25) mg/dL Glucose 251 H (74-99) mg/dL POC Glucose (mg/dL) 270 H (75-99) mg/dL Plasma Lactic Acid Nathanael (0.7-2.0) mmol/L Creatine Kinase (55-170) U/L Total Creatine Kinase (55-170) U/L CK-MB (CK-2) (0.0-2.4) ng/mL Ur Specific [place] (1.001-1.035) Urine Protein (Negative) Urine Glucose (UA) (Negative) Urine Blood (Negative) Urine Bacteria (None) /hpf Hyaline Casts (0-2) /lpf Urine Mucus (None) /hpf Urine Opiates Screen (NotDetected) 10/24/19 10/24/19 10/24/19 Range/Units 17:52 17:52 17:52 WBC (3.8-10.6) k/uL RBC (4.30-5.90) m/uL Hgb (13.0-17.5) gm/dL Hct (39.0-53.0) % Neutrophils # (1.3-7.7) k/uL Lymphocytes # (1.0-4.8) k/uL Monocytes # (0-1.0) k/uL APTT 21.0 L (22.0-30.0) sec Chloride (98-107) mmol/L BUN (9-20) mg/dL Creatinine (0.66-1.25) mg/dL Glucose (74-99) mg/dL POC Glucose (mg/dL) (75-99) mg/dL Plasma Lactic Acid Nathanael 3.4 H* (0.7-2.0) mmol/L Creatine Kinase (55-170) U/L Total Creatine Kinase 1124 H* (55-170) U/L CK-MB (CK-2) 21.9 H (0.0-2.4) ng/mL Ur Specific [place] (1.001-1.035) Urine Protein (Negative) Urine Glucose (UA) (Negative) Urine Blood (Negative) Urine Bacteria (None) /hpf Hyaline Casts (0-2) /lpf Urine Mucus (None) /hpf Urine Opiates Screen (NotDetected) 10/24/19 10/24/19 10/25/19 Range/Units 22:56 23:23 02:33 WBC (3.8-10.6) k/uL RBC (4.30-5.90) m/uL Hgb (13.0-17.5) gm/dL Hct (39.0-53.0) % Neutrophils # (1.3-7.7) k/uL Lymphocytes # (1.0-4.8) k/uL Monocytes # (0-1.0) k/uL APTT (22.0-30.0) sec Chloride (98-107) mmol/L BUN (9-20) mg/dL Creatinine (0.66-1.25) mg/dL Glucose (74-99) mg/dL POC Glucose (mg/dL) 310 H (75-99) mg/dL Plasma Lactic Acid Nathanael 3.7 H* (0.7-2.0) mmol/L Creatine Kinase (55-170) U/L Total Creatine Kinase (55-170) U/L CK-MB (CK-2) (0.0-2.4) ng/mL Ur Specific [place] 1.044 H (1.001-1.035) Urine Protein 2+ H (Negative) Urine Glucose (UA) 2+ H (Negative) Urine Blood Moderate H (Negative) Urine Bacteria Rare H (None) /hpf Hyaline Casts 3 H (0-2) /lpf Urine Mucus Rare H (None) /hpf Urine Opiates Screen (NotDetected) 10/25/19 10/25/19 10/25/19 Range/Units 02:33 03:05 03:05 WBC 18.8 H (3.8-10.6) k/uL RBC 3.88 L (4.30-5.90) m/uL Hgb 12.2 L (13.0-17.5) gm/dL Hct 36.0 L (39.0-53.0) % Neutrophils # 16.5 H (1.3-7.7) k/uL Lymphocytes # 0.7 L (1.0-4.8) k/uL Monocytes # 1.5 H (0-1.0) k/uL APTT (22.0-30.0) sec Chloride 108 H (98-107) mmol/L BUN 47 H (9-20) mg/dL Creatinine 1.34 H (0.66-1.25) mg/dL Glucose 249 H (74-99) mg/dL POC Glucose (mg/dL) (75-99) mg/dL Plasma Lactic Acid Nathanael (0.7-2.0) mmol/L Creatine Kinase (55-170) U/L Total Creatine Kinase (55-170) U/L CK-MB (CK-2) (0.0-2.4) ng/mL Ur Specific [place] (1.001-1.035) Urine Protein (Negative) Urine Glucose (UA) (Negative) Urine Blood (Negative) Urine Bacteria (None) /hpf Hyaline Casts (0-2) /lpf Urine Mucus (None) /hpf Urine Opiates Screen Detected H (NotDetected) 10/25/19 10/25/19 10/25/19 Range/Units 03:05 03:39 06:07 WBC (3.8-10.6) k/uL RBC (4.30-5.90) m/uL Hgb (13.0-17.5) gm/dL Hct (39.0-53.0) % Neutrophils # (1.3-7.7) k/uL Lymphocytes # (1.0-4.8) k/uL Monocytes # (0-1.0) k/uL APTT (22.0-30.0) sec Chloride (98-107) mmol/L BUN (9-20) mg/dL Creatinine (0.66-1.25) mg/dL Glucose (74-99) mg/dL POC Glucose (mg/dL) 271 H (75-99) mg/dL Plasma Lactic Acid Nathanael 3.2 H* (0.7-2.0) mmol/L Creatine Kinase 14545 H* (55-170) U/L Total Creatine Kinase (55-170) U/L CK-MB (CK-2) (0.0-2.4) ng/mL Ur Specific [place] (1.001-1.035) Urine Protein (Negative) Urine Glucose (UA) (Negative) Urine Blood (Negative) Urine Bacteria (None) /hpf Hyaline Casts (0-2) /lpf Urine Mucus (None) /hpf Urine Opiates Screen (NotDetected) 10/25/19 10/25/19 Range/Units 06:46 07:05 WBC (3.8-10.6) k/uL RBC (4.30-5.90) m/uL Hgb (13.0-17.5) gm/dL Hct (39.0-53.0) % Neutrophils # (1.3-7.7) k/uL Lymphocytes # (1.0-4.8) k/uL Monocytes # (0-1.0) k/uL APTT (22.0-30.0) sec Chloride (98-107) mmol/L BUN (9-20) mg/dL Creatinine (0.66-1.25) mg/dL Glucose (74-99) mg/dL POC Glucose (mg/dL) 267 H (75-99) mg/dL Plasma Lactic Acid Nathanael 3.6 H* (0.7-2.0) mmol/L Creatine Kinase (55-170) U/L Total Creatine Kinase (55-170) U/L CK-MB (CK-2) (0.0-2.4) ng/mL Ur Specific [place] (1.001-1.035) Urine Protein (Negative) Urine Glucose (UA) (Negative) Urine Blood (Negative) Urine Bacteria (None) /hpf Hyaline Casts (0-2) /lpf Urine Mucus (None) /hpf Urine Opiates Screen (NotDetected) Assessment and Plan (1) Pain Current Visit: Yes Status: Acute Code(s): R52 - PAIN, UNSPECIFIED SNOMED Code(s): 40280599 (2) Crush injury Current Visit: Yes Status: Acute Code(s): T14.8XXA - OTHER INJURY OF UNSPECIFIED BODY REGION, INITIAL ENCOUNTER SNOMED Code(s): 579136790 (3) Facial laceration Current Visit: Yes Status: Acute Code(s): S01.81XA - LACERATION W/O FOREIGN BODY OF OTH PART OF HEAD, INIT ENCNTR SNOMED Code(s): 032307594 (4) Multiple fractures of ribs, left side, initial encounter for closed fracture Current Visit: Yes Status: Acute Code(s): S22.42XA - MULTIPLE FRACTURES OF RIBS, LEFT SIDE, INIT FOR CLOS FX SNOMED Code(s): 75336162 (5) Traumatic rhabdomyolysis Current Visit: Yes Status: Acute Code(s): T79.6XXA - TRAUMATIC ISCHEMIA OF MUSCLE, INITIAL ENCOUNTER SNOMED Code(s): 255205304 (6) Acute renal failure due to traumatic rhabdomyolysis Current Visit: Yes Status: Acute Code(s): N17.9 - ACUTE KIDNEY FAILURE, UNSPECIFIED; T79.6XXA - TRAUMATIC ISCHEMIA OF MUSCLE, INITIAL ENCOUNTER SNOMED Code(s): 106824233 Plan: I spoke with the seafood farmer this morning. He will see the patient and recomm endations have been put in the computer. Closely monitor the urine output. Saline boluses as needed to maintain good urine output. Good pulmonary toilet. DVT and ulcer prophylaxis. Monitor blood sugars, these are likely elevated due to stress. Physical therapy evaluation and treatment. Serial labs.
[2019-10-25 10:10] LABS: Appearance,Urine Cloudy (Clear); Bacteria,Urine Rare /hpf; Bilirubin,Urine Negative (Negative); Blood,Urine Large (Negative); Color,Urine Yellow; Glucose,Urine (UA) Trace (Negative); Ketones,Urine Negative (Negative); Leukocyte Esterase,Urine Small (Negative); Mucus,Urine Rare /hpf; Nitrite,Urine Negative (Negative); PH, Urine 5.5 (5.0-8.0); Protein,Urine 1+ (Negative); RBC,Urine 40 /hpf (0-5); Squamous Epithelial Cell,Urine <1 /hpf (0-4); WBC,Urine 75 /hpf (0-5)
[2019-10-25 10:29] LABS: Specific Gravity,Urine >1.050 (1.001-1.035)
[2019-10-25 11:24] LABS: Glucose,Whole Blood 244 mg/dL (75-99)
[2019-10-25 14:24] LABS: Albumin 3.2 g/dL (3.5-5.0); Potassium 4.3 mmol/L (3.5-5.1); Total Bilirubin 0.6 mg/dL (0.2-1.3); Total Protein 5.3 g/dL (6.3-8.2)
--- NOTE | 2019-10-25 14:30 | P.NPCON ---
History of Present Illness - Reason for Consult acute renal failure - History of Present Illness Reason for consultation: Acute kidney injury and rhabdomyolysis History of present illness: Patient is a 69-year-old male seen in renal consultation for acute kidney injury and rhabdomyolysis. 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 Patient states he was attacked by a bull. Patient states he was down for about 10-15 minutes. He denies any prior history of kidney disease. Patient's creatinine on admission was 0.83 and is 1.34 today. Patient received IV contrast for a CAT scan of the chest abdomen and pelvis on October 24. No evidence of hydronephrosis was noted. However he does have left-sided nondisplaced rib fractures. Patient denies any hematuria or dysuria. No vomiting or diarrhea. Oral intake has been good. Patient's urine output has been low. He's had about 70-80 mL out this morning. Bailey ca theter was placed this morning. There was no evidence of urinary retention. He does admit to taking Aleve 2 tabs daily at home. He was also on lisinopril and hydrochlorothiazide combination which is currently held. Patient's blood pressure has been controlled this admission although it is on the lower side. Patient does have history of diabetes. Denies family history of renal disease. No chest pain or shortness of breath. No edema. Patient's CK level was 1124 on admission and is up to 10,156 today. He is currently receiving normal saline at 100 mL an hour. Vital signs are stable. General: The patient appeared well nourished and normally developed. HEENT: Head exam is unremarkable. Neck is without jugular venous distension. LUNGS: Lungs are clear to auscultation and percussion. Breath sounds decreased. HEART: Rate and Rhythm are regular. First and second heart sounds normal. No murmurs, rubs or gallops. ABDOMEN: Abdominal exam reveals normal bowel sounds. Non-tender and non- distended. No evidence of peritonitis. EXTREMITITES: No clubbing, cyanosis, or edema. Past Medical History Past Medical History: Asthma, Diabetes Mellitus, Hyperlipidemia, Hypertension History of Any Multi-Drug Resistant Organisms: None Reported Additional Past Surgical History / Comment(s): colonoscopy Past Anesthesia/Blood Transfusion Reactions: No Reported Reaction Past Psychological History: Depression Smoking Status: Never smoker Past Alcohol Use History: None Reported Past Drug Use History: None Reported - Past Family History Father Family Medical History: Cancer Medications and Allergies Home Medications Medication Instructions Recorded Confirmed Type Glimepiride [Amaryl] 2 mg PO AC-BRKFST 02/24/17 10/24/19 History Lisinopril-Hctz 20-25 mg 1 tab PO DAILY 02/24/17 10/24/19 History [Zestoretic 20-25] Venlafaxine HCl [Effexor] 75 mg PO TID 02/24/17 10/24/19 History metFORMIN HCL 1,000 mg PO BID 02/24/17 10/24/19 History Mometasone/Formoterol [Dulera 200 2 puff INHALATION BID 10/25/19 10/25/19 History Mcg/5 Mcg Inhaler] Naproxen Sodium [Aleve] 440 mg PO DAILY 10/25/19 10/25/19 History Allergies Allergy/AdvReac Type Severity Reaction Status Date / Time hay Allergy Itching Uncoded 10/25/19 10:31 Physical Exam Vitals: Vital Signs Temp Pulse Pulse Resp BP BP Pulse Ox 10/25/19 07:00 97.6 F 86 18 113/59 93 L 10/25/19 04:41 79 16 111/69 10/25/19 04:32 18 10/25/19 04:16 84 18 126/70 88 L 10/25/19 04:04 97.4 F L 70 20 99/62 92 L 10/25/19 01:15 97.7 F 72 124/81 93 L 10/25/19 00:41 97 99/63 93 L 10/25/19 00:30 20 10/24/19 22:59 97.6 F 73 20 101/56 94 L 10/24/19 20:51 64 18 98/63 99 10/24/19 17:44 97.7 F 65 16 110/81 95 Intake and Output 10/24/19 10/25/19 10/25/19 22:59 06:59 14:59 Intake Total 600 Output Total 350 50 Balance 250 -50 Intake: Intake, IV Titration 600 Amount Sodium Chloride 0.9% 1, 600 000 ml @ 100 mls/hr IV . Q10H [facility] Rx#:[id number] Output: Urine 350 50 Straight 350 Uretheral (Bailey) 50 Other: Weight 107.501 kg Results - Lab Results Most recent lab results Calcium 8.5 mg/dL (8.4-10.2) 10/25/19 03:05 10/25/19 03:05 10/25/19 03:05 Assessment and Plan Plan: Assessment: 1. Acute kidney injury secondary to ATN secondary to rhabdomyolysis and further worsened with the use of NSAIDs, lisinopril and hydrochlorothiazide. Additionally he also received IV contrast dye on October 24. Creatinine 1.34 today. 2. Rhabdomyolysis secondary to trauma. Patient's initial UA did show moderate blood but only 1 RBC which is suggestive of myoglobinuria. 3. Benign hypertension. Blood pressure currently in the lower side. 4. Diabetes mellitus. 5. Rib fractures secondary to trauma. Plan: I will increase rate of normal saline to 150 mL an hour. Repeat CK levels in the morning. Discontinue Toradol. Continue to monitor renal function and urine output. Hold all antihypertensives. Thank you for the consultation. I will continue to follow the patient is due during his hospital stay.
[2019-10-25 16:11] LABS: Glucose,Whole Blood 334 mg/dL (75-99)
[2019-10-25] MEDS: VENLAFAXINE HCL 75 MG TAB PO SCH ×2 (17:34→20:32)
--- NOTE | 2019-10-25 18:17 | CONS ---
CONSULTATION REASON FOR CONSULTATION: Advice regarding renal failure, multiple contusions and other medical issues, requested by Surgery, Dr. Matos. HISTORY OF PRESENT ILLNESS: This 69-year-old gentleman with a past medical history of asthma, diabetes mellitus, hypertension, hyperlipidemia, being followed by Dr. Gonzalez in the outpatient setting, apparently apparently was gored by a bull yesterday resulting in multiple crush injuries. The patient had abrasions and injuries on the face and also multiple rib fractures on the left side. The patient was also complaining of some left leg pain. The patient came to [facility] and was admitted for evaluation and treatment. The patient has significant rhabdomyolysis and renal failure. The patient is closely monitored in the ICU at this time. Lactic acid was elevated. The creatinine was elevated at 2.52. There is no history of any fever, rigor or chills. No history of headache, loss of consciousness, seizures at this time. PAST MEDICAL HISTORY: 1. History of asthma. 2. Diabetes mellitus. 3. Hypertension. 4. Hyperlipidemia. HOME MEDICATIONS: 1. Naprosyn 440 mg p.o. daily. 2. Dulera 2 puffs b.i.d. 3. Metformin 1000 mg b.i.d. 4. Effexor 75 mg p.o. b.i.d. 5. Zestoretic 1 p.o. daily. 6. Amaryl 2 mg at breakfast. ALLERGIES: HAY. FAMILY HISTORY: History of cancer in the family. SOCIAL HISTORY: No history of smoking. No history of alcohol. REVIEW OF SYSTEMS: ENT: As mentioned earlier. CARDIOVASCULAR SYSTEM: No angina, palpitations. RESPIRATORY SYSTEM: As mentioned earlier. GI: As mentioned earlier. : As mentioned earlier. NERVOUS SYSTEM: No numbness, weakness. ALLERGY/IMMUNOLOGY: No asthma, hayfever. MUSCULOSKELETAL: As mentioned earlier. HEMATOLOGY/ONCOLOGY: No history of anemia. ENDOCRINE: As mentioned earlier. Diabetes mellitus. CONSTITUTIONAL: As mentioned earlier. DERMATOLOGY: As mentioned earlier. RHEUMATOLOGY: Negative. PSYCHIATRY: As mentioned earlier. PHYSICAL EXAMINATION: Patient alert and oriented x3. Pulse 86, blood pressure 127/56, respiration 18, temperature 97.4, pulse ox 91% on room air. HEENT: Conjunctivae normal. Multiple bruises on the face, status post sutures also present. NECK: No jugular venous distention. No carotid bruit. No lymph node enlargement. CARDIOVASCULAR SYSTEM: S1, S2 muffled. No S3. No S4. RESPIRATORY SYSTEM: Breath sounds diminished at the bases. Scattered rhonchi and crackles. ABDOMEN: Soft, obese, non-tender. No mass palpable. LEGS: No edema. No swelling. NERVOUS SYSTEM: Higher functions as mentioned earlier. Moves all 4 limbs. No focal motor or sensory deficit. LYMPHATICS: No lymph node palpable in neck, axillae or groin. SKIN: No ulcer, rash, bleeding. JOINTS: No active deforming arthropathy. LABS: Labs at this time show WBC 18.8, hemoglobin 12.2 and creatinine is 2.52, worsened from 0.83. Lactic acid 3.3. Creatinine kinase is 10,156. AST is 168. ALT is 91. ASSESSMENT: 1. Acute renal failure from acute tubular necrosis and prerenal factors as well as multifactorial. 2. Acute rhabdomyolysis. 3. Blunt trauma suffered from a bull resulting in multiple injuries. 4. Multiple rib fractures on the left side. 5. Facial contusions and injuries. 6. Elevated plasma lactic acid. 7. Increased AST and ALT. 8. Diabetes mellitus, type 2. 9. Increased white count, possibly reactive. 10.Anemia, normocytic, of undetermined etiology. 11.History of bronchial asthma, chronic, intermittent. 12.Hypertension. 13.Hyperlipidemia. 14.History of colonoscopy. 15.History of depression. 16.Obesity with body mass index of 34. RECOMMENDATIONS AND DISCUSSION: In this 69-year-old gentleman who presented with multiple medical issues, at this time I would recommend to continue the current medications, continue with IV fluids. Creatinine has worsened definitely today. We will continue to monitor and Nephrology has been consulted. Creatinine kinase will be closely monitored. LFTs are also elevated. The patient has multiple medical issues. The blood sugars are elevated. I would recommend continued Accu-Cheks before meals and at bedtime. Hold metformin at this time. There are no NSAIDs, nephrotoxic agents. Closely follow. Protonix. Prognosis is guarded because of multiple complex medical issues. We will follow the patient closely with you. The patient may be asked to follow with Dr. Gonzalez after discharge. Thank you, Dr. Matos, for letting us participate in the care this patient. I also recommend DVT prophylaxis as well. MMODL / IJN: [id number] /
[2019-10-25 18:32] LABS: Albumin 3.1 g/dL (3.5-5.0); Calcium 7.8 mg/dL (8.4-10.2); Potassium 3.8 mmol/L (3.5-5.1); Total Bilirubin 0.6 mg/dL (0.2-1.3); Total Protein 5.3 g/dL (6.3-8.2)
[2019-10-25] MEDS: SYMBICORT 160-4.5 MCG INHALER INHALATION SCH (19:27)
[2019-10-25] MEDS: HEPARIN SODIUM,PORCINE 5,000 UNIT/ML 1 ML VIAL SQ SCH (20:32)
[2019-10-25 21:18] LABS: Glucose,Whole Blood 165 mg/dL (75-99)
[2019-10-26] MEDS: SODIUM CHLORIDE 0.9% 1,000 ML IV SCH ×3 (02:30→21:18)
[2019-10-26] MEDS: traMADol 50 MG TAB PO PRN ×3 (02:52→16:49)
[2019-10-26] MEDS: ACETAMINOPHEN TAB 325 MG TAB PO SCH ×3 (05:15→18:58)
[2019-10-26 06:50] LABS: Albumin 2.9 g/dL (3.5-5.0); Calcium 7.5 mg/dL (8.4-10.2); Potassium 3.7 mmol/L (3.5-5.1); Total Bilirubin 0.6 mg/dL (0.2-1.3)
[2019-10-26 07:02] LABS: MCH 31.9 pg (25.0-35.0); MCHC 34.5 g/dL (31.0-37.0); MCV 92.5 fL (80.0-100.0); Mean Platelet Volume 7.2; Platelet Count 158 k/uL (150-450); RBC 2.91 m/uL (4.30-5.90); RDW 12.9 % (11.5-15.5); WBC 11.3 k/uL (3.8-10.6)
[2019-10-26 07:10] LABS: Glucose,Whole Blood 201 mg/dL (75-99)
[2019-10-26 07:12] LABS: HGB 9.3 gm/dL (13.0-17.5)
[2019-10-26] MEDS: SYMBICORT 160-4.5 MCG INHALER INHALATION SCH ×2 (08:00→19:53)
[2019-10-26] MEDS: VENLAFAXINE HCL 75 MG TAB PO SCH ×3 (08:11→21:15)
[2019-10-26] MEDS: PANTOPRAZOLE 40 MG TABLET PO SCH (08:12)
[2019-10-26] MEDS: HEPARIN SODIUM,PORCINE 5,000 UNIT/ML 1 ML VIAL SQ SCH ×2 (08:12→21:15)
[2019-10-26] MEDS: INSULIN ASPART (NovoLOG) 100 UNIT/ML VIAL SQ SCH ×4 (08:12→21:15)
[2019-10-26] MEDS ORDERED: FAMOTIDINE 20 MG TAB PO SCH (09:00)
--- NOTE | 2019-10-26 09:19 | P.PN ---
Subjective Progress Note Date: 10/26/19 Principal diagnosis: Crush injury The patient is seen on rounds. He still feels generally sore. Denies any shortness of breath. He has some discomfort with deep Inspiration. Using his incentive spirometry well. Tolerating a diet today. No nausea or vomiting. He was able to get up to the chair several times yesterday. He would like to take a shower today. Objective - Vital Signs Vital signs: Vital Signs Temp 98.4 F 10/26/19 06:23 Pulse 76 10/26/19 06:23 Resp 18 10/26/19 06:23 BP 119/80 10/26/19 06:23 Pulse Ox 94 L 10/26/19 06:23 Intake & Output 10/25/19 10/26/19 10/26/19 18:59 06:59 18:59 Intake Total 1480 120 Output Total 240 790 100 Balance -240 690 20 Intake: Intake, IV Titration 1200 Amount Sodium Chloride 0.9% 1, 1200 000 ml @ 150 mls/hr IV . Q6H40M [facility] Rx#:[id number] Oral 280 120 Output: Urine 240 790 100 Uretheral (Bailey) 50 100 Other: Voiding Method Indwelling Catheter # Voids 1 - Constitutional General appearance: Present: cooperative, no acute distress - EENT EENT Comment(s): swelling is improving. Continues to have ecchymosis - Labs CBC & Chem 7: 10/26/19 06:28 10/26/19 06:28 Labs: Abnormal Lab Results - Last 24 Hours (Table) 10/25/19 10/25/19 10/25/19 Range/Units 09:07 10:41 11:21 WBC (3.8-10.6) k/uL RBC (4.30-5.90) m/uL Hgb (13.0-17.5) gm/dL Hct (39.0-53.0) % Chloride (98-107) mmol/L BUN (9-20) mg/dL Creatinine (0.66-1.25) mg/dL Glucose (74-99) mg/dL POC Glucose (mg/dL) 244 H (75-99) mg/dL Plasma Lactic Acid Nathanael 3.2 H* (0.7-2.0) mmol/L Calcium (8.4-10.2) mg/dL AST (17-59) U/L ALT (21-72) U/L Creatine Kinase (55-170) U/L Total Protein (6.3-8.2) g/dL Albumin (3.5-5.0) g/dL Ur Specific [place] >1.050 H (1.001-1.035) Urine Protein 1+ H (Negative) Urine Glucose (UA) Trace H (Negative) Urine Blood Large H (Negative) Ur Leukocyte Esterase Small H (Negative) Urine RBC 40 H (0-5) /hpf Urine WBC 75 H (0-5) /hpf Urine Bacteria Rare H (None) /hpf Urine Mucus Rare H (None) /hpf 10/25/19 10/25/19 10/25/19 Range/Units 13:56 13:56 16:10 WBC (3.8-10.6) k/uL RBC (4.30-5.90) m/uL Hgb (13.0-17.5) gm/dL Hct (39.0-53.0) % Chloride (98-107) mmol/L BUN 55 H (9-20) mg/dL Creatinine 2.52 H (0.66-1.25) mg/dL Glucose 213 H (74-99) mg/dL POC Glucose (mg/dL) 334 H (75-99) mg/dL Plasma Lactic Acid Nathanael 3.3 H* (0.7-2.0) mmol/L Calcium 8.0 L (8.4-10.2) mg/dL AST 168 H (17-59) U/L ALT 91 H (21-72) U/L Creatine Kinase (55-170) U/L Total Protein 5.3 L (6.3-8.2) g/dL Albumin 3.2 L (3.5-5.0) g/dL Ur Specific [place] (1.001-1.035) Urine Protein (Negative) Urine Glucose (UA) (Negative) Urine Blood (Negative) Ur Leukocyte Esterase (Negative) Urine RBC (0-5) /hpf Urine WBC (0-5) /hpf Urine Bacteria (None) /hpf Urine Mucus (None) /hpf 10/25/19 10/25/19 10/26/19 Range/Units 18:04 21:16 06:28 WBC 11.3 H (3.8-10.6) k/uL RBC 2.91 L (4.30-5.90) m/uL Hgb 9.3 L D (13.0-17.5) gm/dL Hct 27.0 L (39.0-53.0) % Chloride (98-107) mmol/L BUN 58 H (9-20) mg/dL Creatinine 2.67 H (0.66-1.25) mg/dL Glucose 177 H (74-99) mg/dL POC Glucose (mg/dL) 165 H (75-99) mg/dL Plasma Lactic Acid Nathanael (0.7-2.0) mmol/L Calcium 7.8 L (8.4-10.2) mg/dL AST 169 H (17-59) U/L ALT 98 H (21-72) U/L Creatine Kinase (55-170) U/L Total Protein 5.3 L (6.3-8.2) g/dL Albumin 3.1 L (3.5-5.0) g/dL Ur Specific [place] (1.001-1.035) Urine Protein (Negative) Urine Glucose (UA) (Negative) Urine Blood (Negative) Ur Leukocyte Esterase (Negative) Urine RBC (0-5) /hpf Urine WBC (0-5) /hpf Urine Bacteria (None) /hpf Urine Mucus (None) /hpf 10/26/19 10/26/19 Range/Units 06:28 07:01 WBC (3.8-10.6) k/uL RBC (4.30-5.90) m/uL Hgb (13.0-17.5) gm/dL Hct (39.0-53.0) % Chloride 109 H (98-107) mmol/L BUN 56 H (9-20) mg/dL Creatinine 1.66 H (0.66-1.25) mg/dL Glucose 164 H (74-99) mg/dL POC Glucose (mg/dL) 201 H (75-99) mg/dL Plasma Lactic Acid Nathanael (0.7-2.0) mmol/L Calcium 7.5 L (8.4-10.2) mg/dL AST 142 H (17-59) U/L ALT 95 H (21-72) U/L Creatine Kinase 68043 H* (55-170) U/L Total Protein 5.0 L (6.3-8.2) g/dL Albumin 2.9 L (3.5-5.0) g/dL Ur Specific [place] (1.001-1.035) Urine Protein (Negative) Urine Glucose (UA) (Negative) Urine Blood (Negative) Ur Leukocyte Esterase (Negative) Urine RBC (0-5) /hpf Urine WBC (0-5) /hpf Urine Bacteria (None) /hpf Urine Mucus (None) /hpf Microbiology - Last 24 Hours (Table) 10/25/19 21:58 Urine Culture - Preliminary Urine,Catheterized Assessment and Plan (1) Pain Current Visit: Yes Status: Acute Code(s): R52 - PAIN, UNSPECIFIED SNOMED Code(s): 58392706 (2) Crush injury Current Visit: Yes Status: Acute Code(s): T14.8XXA - OTHER INJURY OF UNSPECIFIED BODY REGION, INITIAL ENCOUNTER SNOMED Code(s): 683573713 (3) Facial laceration Current Visit: Yes Status: Acute Code(s): S01.81XA - LACERATION W/O FOREIGN BODY OF OTH PART OF HEAD, INIT ENCNTR SNOMED Code(s): 231741906 (4) Multiple fractures of ribs, left side, initial encounter for closed fracture Current Visit: Yes Status: Acute Code(s): S22.42XA - MULTIPLE FRACTURES OF RIBS, LEFT SIDE, INIT FOR CLOS FX SNOMED Code(s): 79989636 (5) Traumatic rhabdomyolysis Current Visit: Yes Status: Acute Code(s): T79.6XXA - TRAUMATIC ISCHEMIA OF MUSCLE, INITIAL ENCOUNTER SNOMED Code(s): 717610126 (6) Acute renal failure due to traumatic rhabdomyolysis Current Visit: Yes Status: Acute Code(s): N17.9 - ACUTE KIDNEY FAILURE, UNSPECIFIED; T79.6XXA - TRAUMATIC ISCHEMIA OF MUSCLE, INITIAL ENCOUNTER SNOMED Code(s): 638992796 (7) Urinary retention Current Visit: Yes Status: Acute Code(s): R33.9 - RETENTION OF URINE, UNSPECIFIED SNOMED Code(s): 397936762 (8) Diabetes Current Visit: Yes Status: Acute Code(s): E11.9 - TYPE 2 DIABETES MELLITUS WITHOUT COMPLICATIONS SNOMED Code(s): 20482557 Plan: Doing well from his rib fractures. Generalized pain is more of an issue for him. The rhabdomyolysis appears to have peaked. CPK is stable, will continue to follow it. The renal function is better today than yesterday. Good urine output. Will start flomax. Increase activity. Progressing slowly
[2019-10-26] MEDS: HYDROmorphone 0.5 MG/0.5 ML SYRINGE IVP PRN ×2 (11:17→21:15)
[2019-10-26 11:36] LABS: Glucose,Whole Blood 196 mg/dL (75-99)
[2019-10-26] MEDS: TAMSULOSIN 0.4 MG CAP.ER.24H PO SCH (11:46)
--- NOTE | 2019-10-26 13:34 | XR ---
EXAMINATION TYPE: XR chest 2V DATE OF EXAM: 10/26/2019 COMPARISON: Chest x-ray and CT chest October 24, 2019 HISTORY: Crushing injury with pain, known rib fractures. TECHNIQUE: Frontal and lateral views of the chest are obtained. FINDINGS: There is new Left basilar opacity confirmed on 2 views. Right lung remains clear. The car diac silhouette size remains within normal limits. Mildly discussed ways posterior left third rib fra cture redemonstrated. Additional posterior nondisplaced left-sided fractures less well seen. IMPRESSION: New small left pleural effusion or fluid collection and associated left basilar atelecta sis and/or infiltrate
[2019-10-26 16:50] LABS: Glucose,Whole Blood 197 mg/dL (75-99)
[2019-10-26] MEDS ORDERED: IPRATROPIUM-ALBUTEROL 3 ML NEB INHALATION PRN (16:51)
--- NOTE | 2019-10-26 18:41 | PN ---
PROGRESS NOTE DATE OF SERVICE: 10/26/2019 This 69-year-old gentleman, admitted after a bull attack, is being closely monitored. Patient had rhabdomyolysis and renal failure, also. Patient had extensive contusions. Patient complained of severe pain. He also had multiple rib fractures on the left side. The most recent chest x-ray showed a small pleural effusion and bilateral atelectasis also noted. Past medical history reviewed. REVIEW OF SYSTEMS: CARDIOVASCULAR SYSTEM: No angina, palpitations. RESPIRATORY SYSTEM: As mentioned earlier. GI: As mentioned earlier. : No dysuria or retention. NERVOUS SYSTEM: No numbness, weakness. CURRENT MEDICATIONS: Reviewed. They include: 1. Tylenol. 2. Symbicort. 3. Valium. 4. Heparin. 5. Dilaudid. 6. NovoLog. 7. Reglan. 8. Morphine sulfate. 9. Zofran. 10.Protonix. 11.Flomax. 12.Restoril. 13.Ultram. 14.Effexor. The doses are reviewed. PHYSICAL EXAMINATION: Patient is alert, oriented x3. Pulse 91, blood pressure 116/72, respirations 16, temperature 98.6, pulse ox 91% on room air. HEENT: Conjunctivae normal. NECK: No jugular venous distention. CARDIOVASCULAR SYSTEM: S1, S2 muffled. RESPIRATORY SYSTEM: Breath sounds diminished at the bases. A few scattered rhonchi and crackles. ABDOMEN: Soft, non-tender. LEGS: No edema. No swelling. NERVOUS SYSTEM: Diffusely weak. LABS: WBC 11.3, hemoglobin 9.3. Creatinine is 1.6. Accu-Cheks are noted. Creatine kinase is 10,297. ASSESSMENT: 1. Acute renal failure from acute tubular necrosis with prerenal factors as well as multifactorial. 2. Acute rhabdomyolysis. 3. Blunt trauma suffered from a bull attack resulting in multiple injuries and multiple rib fractures on the left side. 4. Atelectasis. 5. Facial contusion injuries. 6. Elevated plasma lactic acid. 7. Increased AST, ALT. 8. Diabetes mellitus, type 2. 9. Increased white count, possibly reactive. 10.Anemia, normocytic of undetermined etiology. 11.History of bronchial asthma, chronic intermittent. 12.Hypertension. 13.Hyperlipidemia. 14.History of colonoscopy. 15.History of depression. 16.Obesity with body mass index 34. RECOMMENDATIONS AND DISCUSSION: I recommend to continue current medications, continue with the monitoring, symptomatic treatment. Repeat labs. Continue with the IV fluids. Closely follow with Nephrology. Prognosis guarded because of multiple complex medical issues. Chest x-ray evaluated personally. Monitor blood sugars closely. See orders for further details. Pain management. PT/OT evaluation. Consider ECF rehab also because of the extensive injuries the patient sustained. MMJASONL / ADALIDN: [id number] /
[2019-10-26] MEDS: IPRATROPIUM-ALBUTEROL 3 ML NEB INHALATION SCH (19:52)
--- NOTE | 2019-10-26 20:05 | PN ---
PROGRESS NOTE The patient is seen for followup for acute kidney injury mainly ATN associated with rhabdomyolysis. Serum creatinine peaked at 2.6. It is down to 1[place]6 [place] [address], which is slightly up from 53317 yesterday. The patient is maintained on IV fluids in the form of normal saline. He is not significantly acidotic. PHYSICAL EXAMINATION: This morning, patient is comfortable. He is not in any acute distress. Blood pressure 119/80, heart rate of 76 per minute. He is afebrile. Examination of the heart S1, S2. Examination of lungs: Decreased breath sounds at bases. Abdomen is soft, nontender. Examination of lower extremities shows no evidence of edema. The patient has bruising around his left eye and on the face. LABS: Show sodium 138, potassium 3.7, chloride 109, BUN 56, [place] 1[place] [address]. AST 142, ALT 95. ASSESSMENT: 1. Acute kidney injury secondary to rhabdomyolysis and acute tubular necrosis currently improving. Patient is nonoliguric. Continue with IV fluids. If the CK level continues to rise, I will add IV bicarb. At this time continue with saline. 2. Rhabdomyolysis. 3. Type 2 diabetes. 4. Rib fractures from trauma. PLAN: Continue to hold off on NSAIDs, SVETLANA inhibitors and diuretics. Continue with normal saline for now. Repeat CK level and renal profile in a.m. Add IV bicarb if CK is higher. MMODL / IJN: [id number] /
[2019-10-26 21:03] LABS: Glucose,Whole Blood 247 mg/dL (75-99)
[2019-10-27] MEDS: ACETAMINOPHEN TAB 325 MG TAB PO SCH ×5 (01:33→23:16)
[2019-10-27] MEDS: SODIUM CHLORIDE 0.9% 1,000 ML IV SCH ×3 (03:24→21:01)
[2019-10-27 07:03] LABS: Glucose,Whole Blood 226 mg/dL (75-99)
[2019-10-27] MEDS: IPRATROPIUM-ALBUTEROL 3 ML NEB INHALATION SCH ×4 (07:08→21:16)
[2019-10-27] MEDS: SYMBICORT 160-4.5 MCG INHALER INHALATION SCH ×2 (07:08→21:16)
[2019-10-27 07:27] LABS: HCT 27.3 % (39.0-53.0); HGB 9.3 gm/dL (13.0-17.5); MCH 31.9 pg (25.0-35.0); MCV 93.8 fL (80.0-100.0); Platelet Count 156 k/uL (150-450); RBC 2.91 m/uL (4.30-5.90); RDW 12.8 % (11.5-15.5); WBC 9.6 k/uL (3.8-10.6)
[2019-10-27 07:43] LABS: ALT 95 U/L (21-72); AST 112 U/L (17-59); African American GFR (CKD) >90 (>60 ml/min/1.73 sqM); Alkaline Phosphatase 45 U/L (38-126); Anion Gap 7 mmol/L; Blood Urea Nitrogen 34 mg/dL (9-20); Carbon Dioxide 23 mmol/L (22-30); Chloride 109 mmol/L (98-107); Glucose 185 mg/dL (74-99); Non-African American GFR(CKD) >90 (>60 ml/min/1.73 sqM); Potassium 4.3 mmol/L (3.5-5.1); Sodium 139 mmol/L (137-145); Total Bilirubin 0.7 mg/dL (0.2-1.3); Total Protein 5.3 g/dL (6.3-8.2)
[2019-10-27] MEDS: INSULIN ASPART (NovoLOG) 100 UNIT/ML VIAL SQ SCH ×4 (07:50→21:01)
[2019-10-27] MEDS: VENLAFAXINE HCL 75 MG TAB PO SCH ×3 (07:51→21:01)
[2019-10-27] MEDS: PANTOPRAZOLE 40 MG TABLET PO SCH (07:51)
[2019-10-27] MEDS: TAMSULOSIN 0.4 MG CAP.ER.24H PO SCH (07:51)
[2019-10-27] MEDS: traMADol 50 MG TAB PO PRN (07:51)
[2019-10-27] MEDS: HEPARIN SODIUM,PORCINE 5,000 UNIT/ML 1 ML VIAL SQ SCH ×2 (07:51→21:01)
[2019-10-27 08:26] LABS: Creatine Kinase 6063 U/L (55-170)
[2019-10-27] MEDS ORDERED: SODIUM CHLORIDE 0.65% NASAL SPRAY 44 ML BTL NASAL PRN (10:40)
--- NOTE | 2019-10-27 10:49 | P.PN ---
Subjective Progress Note Date: 10/27/19 Principal diagnosis: Crush injury The patient is feeling better today. Still having pain but much easier to move around. He got up to a shower yesterday. He also ambulated in the cruz. The patient was up in the chair several times. His breathing is easier. He is complaining of some soreness in the lower lip and dried blood from the nose. Objective - Vital Signs Vital signs: Vital Signs Temp 98.2 F 10/27/19 07:00 Pulse 108 H 10/27/19 08:30 Resp 18 10/27/19 08:30 BP 158/73 10/27/19 07:00 Pulse Ox 92 L 10/27/19 07:08 Intake & Output 10/26/19 10/27/19 10/27/19 18:59 06:59 18:59 Intake Total 360 1600 Output Total 700 900 400 Balance -340 700 -400 Intake: Intake, IV Titration 1200 Amount Sodium Chloride 0.9% 1, 1200 000 ml @ 150 mls/hr IV . Q6H40M [facility] Rx#:[id number] Oral 360 400 Output: Urine 700 900 400 Other: Voiding Method Indwelling Catheter Indwelling Catheter Indwelling Catheter # Voids 1 - Constitutional General appearance: Present: cooperative, no acute distress - EENT EENT Comment(s): Periorbital swelling and nasal swelling is improved. Dried blood in the nares. He has some swelling noted in the lower lip on the left with a superficial abrasion. - Respiratory Respiratory: bilateral: CTA, diminished, negative: rales (At the bases), rhonchi, wheezing - Cardiovascular Rhythm: regular - Gastrointestinal General gastrointestinal: Present: normal bowel sounds, soft. Absent: tenderness - Genitourinary Genitourinary Comment(s): Urine is clear pale yellow - Integumentary Integumentary Comment(s): New soft ecchymosis along the posterior thorax - Labs CBC & Chem 7: 10/27/19 06:52 10/27/19 06:52 Labs: Abnormal Lab Results - Last 24 Hours (Table) 10/26/19 10/26/19 10/26/19 Range/Units 11:20 16:49 21:02 RBC (4.30-5.90) m/uL Hgb (13.0-17.5) gm/dL Hct (39.0-53.0) % Chloride (98-107) mmol/L BUN (9-20) mg/dL Glucose (74-99) mg/dL POC Glucose (mg/dL) 196 H 197 H 247 H (75-99) mg/dL Calcium (8.4-10.2) mg/dL AST (17-59) U/L ALT (21-72) U/L Creatine Kinase (55-170) U/L Total Protein (6.3-8.2) g/dL Albumin (3.5-5.0) g/dL 10/27/19 10/27/19 10/27/19 Range/Units 06:52 06:52 07:00 RBC 2.91 L (4.30-5.90) m/uL Hgb 9.3 L (13.0-17.5) gm/dL Hct 27.3 L (39.0-53.0) % Chloride 109 H (98-107) mmol/L BUN 34 H (9-20) mg/dL Glucose 185 H (74-99) mg/dL POC Glucose (mg/dL) 226 H (75-99) mg/dL Calcium 8.0 L (8.4-10.2) mg/dL AST 112 H (17-59) U/L ALT 95 H (21-72) U/L Creatine Kinase 6063 H* (55-170) U/L Total Protein 5.3 L (6.3-8.2) g/dL Albumin 3.0 L (3.5-5.0) g/dL Microbiology - Last 24 Hours (Table) 10/25/19 21:58 Urine Culture - Final Urine,Catheterized 10/25/19 18:04 Blood Culture - Preliminary Blood No Growth after 24 hours Assessment and Plan (1) Pain Current Visit: Yes Status: Acute Code(s): R52 - PAIN, UNSPECIFIED SNOMED Code(s): 19369937 (2) Crush injury Current Visit: Yes Status: Acute Code(s): T14.8XXA - OTHER INJURY OF UNSPECIFIED BODY REGION, INITIAL ENCOUNTER SNOMED Code(s): 043679892 (3) Facial laceration Current Visit: Yes Status: Acute Code(s): S01.81XA - LACERATION W/O FOREIGN BODY OF OTH PART OF HEAD, INIT ENCNTR SNOMED Code(s): 733605015 (4) Multiple fractures of ribs, left side, initial encounter for closed fracture Current Visit: Yes Status: Acute Code(s): S22.42XA - MULTIPLE FRACTURES OF RIBS, LEFT SIDE, INIT FOR CLOS FX SNOMED Code(s): 36224421 (5) Traumatic rhabdomyolysis Current Visit: Yes Status: Acute Code(s): T79.6XXA - TRAUMATIC ISCHEMIA OF MUSCLE, INITIAL ENCOUNTER SNOMED Code(s): 407375332 (6) Acute renal failure due to traumatic rhabdomyolysis Current Visit: Yes Status: Acute Code(s): N17.9 - ACUTE KIDNEY FAILURE, UNSPECIFIED; T79.6XXA - TRAUMATIC ISCHEMIA OF MUSCLE, INITIAL ENCOUNTER SNOMED Code(s): 282706253 (7) Urinary retention Current Visit: Yes Status: Acute Code(s): R33.9 - RETENTION OF URINE, UNSPECIFIED SNOMED Code(s): 973911962 (8) Diabetes Current Visit: Yes Status: Acute Code(s): E11.9 - TYPE 2 DIABETES MELLITUS WITHOUT COMPLICATIONS SNOMED Code(s): 35222811 Plan: The renal function is markedly improved. I'll decrease his IV to 100 MLS per hour pending nephrology evaluation. He was started on Flomax. We'll attempt to remove the catheter in the morning. If he is unable to void the catheter will be reinserted and will consult nephrology. Physical therapy has seen him and do es not feel he needs any short-term rehab. He's doing well from a pulmonary standpoint. There is a small pleural effusion. Progressing slowly. Hopefully he will be ready for discharge in the next 48-72 hours
[2019-10-27 11:25] LABS: Glucose,Whole Blood 240 mg/dL (75-99)
--- NOTE | 2019-10-27 16:10 | P.PAINCN ---
History of Present Illness - Reason for Consult Consult date: 10/27/19 - History of Present Illness This is 69 years old male, was attacked by a bull, and he had multiple traumatic injury, and he had left multiple rib fractures, and he had rhabdomyolysis, patient complaining of chest wall pain mainly on the left side, and is currently on Ultram 100 mg every 6 hours morphine sulfate 4 mg every 4 hours when necessary and Dilaudid 0.5 mg every 3 hours when necessary, Past Medical History Past Medical History: Asthma, Diabetes Mellitus, Hyperlipidemia, Hypertension History of Any Multi-Drug Resistant Organisms: None Reported Additional Past Surgical History / Comment(s): colonoscopy Past Anesthesia/Blood Transfusion Reactions: No Reported Reaction Past Psychological History: Depression Smoking Status: Never smoker Past Alcohol Use History: None Reported Past Drug Use History: None Reported - Past Family History Father Family Medical History: Cancer Medications and Allergies Home Medications Medication Instructions Recorded Confirmed Type Glimepiride [Amaryl] 2 mg PO AC-BRKFST 02/24/17 10/24/19 History Lisinopril-Hctz 20-25 mg 1 tab PO DAILY 02/24/17 10/24/19 History [Zestoretic 20-25] Venlafaxine HCl [Effexor] 75 mg PO TID 02/24/17 10/24/19 History metFORMIN HCL 1,000 mg PO BID 02/24/17 10/24/19 History Mometasone/Formoterol [Dulera 200 2 puff INHALATION BID 10/25/19 10/25/19 History Mcg/5 Mcg Inhaler] Naproxen Sodium [Aleve] 440 mg PO DAILY 10/25/19 10/25/19 History Allergies Allergy/AdvReac Type Severity Reaction Status Date / Time hay Allergy Itching Uncoded 10/25/19 10:31 Physical Exam Vitals: Vital Signs Temp Pulse Pulse Resp BP Pulse Ox 10/27/19 15:00 98.3 F 101 H 16 135/61 94 L 10/27/19 11:11 92 10/27/19 11:02 92 10/27/19 08:30 108 H 18 10/27/19 07:17 96 10/27/19 07:08 96 92 L 10/27/19 07:00 98.2 F 108 H 18 158/73 89 L 10/26/19 23:15 98.4 F 107 H 130/66 92 L 10/26/19 21:45 98.2 F 101 H 18 148/75 92 L 10/26/19 19:59 96 10/26/19 19:53 91 Intake and Output 10/27/19 10/27/19 10/27/19 06:59 14:59 22:59 Intake Total 1600 1100 Output Total 600 400 Balance 1000 700 Intake: Intake, IV Titration 1200 1100 Amount Sodium Chloride 0.9% 1, 1200 1100 000 ml @ 100 mls/hr IV . Q10H [facility] Rx#:[id number] Oral 400 Output: Urine 600 400 Other: Voiding Method Indwelling Catheter Indwelling Catheter # Voids 800 Physical Examinations : -Constitutiona : Cooperative , not in acute distress . -HEENT : nech : supple , no Lymphadenopathy , normal thyroid size . : eyes : no ptosis , no icterus, no photophobia . : ENT : normal of hearing , normal oropharynx , no Thrush . - Respiratory : Chest clear to auscultations Bilaterally , decreased breath sound - Cardiovascula : regular rate and rhythem , S1 , S2 , no S3 , no S4. - Gastrointestina : abdomen soft no tenderness , bowel sounds , no organomegally . - Genitourinary : Defferred . - neurologic : Cranial nerve II to XII intact , no focal neurological deffecit . -psychatric : alert , oriented X 3 , appropriate affect , intact judgment and insight . -Lymphatic : no Lymphadenopathy . - musculoskeltal : Lumber spine moter stegnth lower extremities ,thigh and legs 5/5 Right side , 5/5 Left side Results CBC & Chem 7: 10/27/19 06:52 10/27/19 06:52 Labs: Abnormal Lab Results - Last 24 Hours (Table) 10/26/19 10/26/19 10/27/19 Range/Units 16:49 21:02 06:52 RBC 2.91 L (4.30-5.90) m/uL Hgb 9.3 L (13.0-17.5) gm/dL Hct 27.3 L (39.0-53.0) % Chloride (98-107) mmol/L BUN (9-20) mg/dL Glucose (74-99) mg/dL POC Glucose (mg/dL) 197 H 247 H (75-99) mg/dL Calcium (8.4-10.2) mg/dL AST (17-59) U/L ALT (21-72) U/L Creatine Kinase (55-170) U/L Total Protein (6.3-8.2) g/dL Albumin (3.5-5.0) g/dL 10/27/19 10/27/19 10/27/19 Range/Units 06:52 07:00 11:23 RBC (4.30-5.90) m/uL Hgb (13.0-17.5) gm/dL Hct (39.0-53.0) % Chloride 109 H (98-107) mmol/L BUN 34 H (9-20) mg/dL Glucose 185 H (74-99) mg/dL POC Glucose (mg/dL) 226 H 240 H (75-99) mg/dL Calcium 8.0 L (8.4-10.2) mg/dL AST 112 H (17-59) U/L ALT 95 H (21-72) U/L Creatine Kinase 6063 H* (55-170) U/L Total Protein 5.3 L (6.3-8.2) g/dL Albumin 3.0 L (3.5-5.0) g/dL Microbiology - Last 24 Hours (Table) 10/25/19 21:58 Urine Culture - Final Urine,Catheterized 10/25/19 18:04 Blood Culture - Preliminary Blood No Growth after 24 hours Comments: Computed tomography scan of the chest none displaced RIB Fractures second and third Assessment and Plan Plan: Assessment and plan= Left chest wall pain secondary to multiple rib fractures, patient reported that could be discharged soon (Friday morning) Patient is not a candidate to have thoracic epidural, I recommend to start patient on Lidoderm patch 5% to be applied to the chest wall ( left side ) , and recommended continuing Ultram 100 mg every 6 hours when necessary Time with Patient: Less than 30 PQRS Measure Charge Sheet PQRS Narrative: Smoking Status Never smoker Do You Want the Pneumonia No Vaccine AT THIS TIME? Blood Pressure [Left Arm] 135/61 Blood Pressure 98/63 Pain Intensity [Left Lateral 5 Chest] Pain Intensity 3 Pain Scale Used Numeric (1 - 10) Scale Used Non Verbal Pain Indicator Home Medications: Ambulatory Orders Glimepiride [Amaryl] 2 mg PO AC-BRKFST 02/24/17 Lisinopril-Hctz 20-25 mg [Zestoretic 20-25] 1 tab PO DAILY 02/24/17 Venlafaxine HCl [Effexor] 75 mg PO TID 02/24/17 metFORMIN HCL 1,000 mg PO BID 02/24/17 Mometasone/Formoterol [Dulera 200 Mcg/5 Mcg Inhaler] 2 puff INHALATION BID 10/25/19 Naproxen Sodium [Aleve] 440 mg PO DAILY 10/25/19
[2019-10-27 17:01] LABS: Glucose,Whole Blood 186 mg/dL (75-99)
--- NOTE | 2019-10-27 17:06 | P.PN ---
Subjective Principal diagnosis: Pt is seen for f/u for ROBERT and rhabdomyolysis. Doing much better today. Pt has just walked with PT this morning. Renal function continues to improve. Good UOP. Objective - Vital Signs Vital signs: Vital Signs Temp 98.3 F 10/27/19 15:00 Pulse 90 10/27/19 16:51 Resp 16 10/27/19 16:20 BP 135/61 10/27/19 15:00 Pulse Ox 94 L 10/27/19 15:00 Intake & Output 10/26/19 10/27/19 10/27/19 18:59 06:59 18:59 Intake Total 360 1600 1100 Output Total 700 900 400 Balance -340 700 700 Intake: Intake, IV Titration 1200 1100 Amount Sodium Chloride 0.9% 1, 1200 1100 000 ml @ 100 mls/hr IV . Q10H [facility] Rx#:[id number] Oral 360 400 Output: Urine 700 900 400 Other: Voiding Method Indwelling Catheter Indwelling Catheter Indwelling Catheter # Voids 800 - Constitutional General appearance: Present: average body habitus, no acute distress - EENT EENT Comment(s): bruising noted Left eye area and face. Eyes: Present: PERRLA ENT: Present: NA/AT - Respiratory Respiratory: bilateral: CTA - Cardiovascular Rhythm: regular Heart sounds: normal: S1, S2 - Gastrointestinal General gastrointestinal: Present: normal bowel sounds, soft - Integumentary Integumentary Comment(s): TRACE EDEMA NOTED BILATERAL LOWER EXT. - Neurologic Neurologic Comment(s): grossly intact - Labs CBC & Chem 7: 10/27/19 06:52 10/27/19 06:52 Labs: Abnormal Lab Results - Last 24 Hours (Table) 10/26/19 10/27/19 10/27/19 Range/Units 21:02 06:52 06:52 RBC 2.91 L (4.30-5.90) m/uL Hgb 9.3 L (13.0-17.5) gm/dL Hct 27.3 L (39.0-53.0) % Chloride 109 H (98-107) mmol/L BUN 34 H (9-20) mg/dL Glucose 185 H (74-99) mg/dL POC Glucose (mg/dL) 247 H (75-99) mg/dL Calcium 8.0 L (8.4-10.2) mg/dL AST 112 H (17-59) U/L ALT 95 H (21-72) U/L Creatine Kinase 6063 H* (55-170) U/L Total Protein 5.3 L (6.3-8.2) g/dL Albumin 3.0 L (3.5-5.0) g/dL 10/27/19 10/27/19 Range/Units 07:00 11:23 RBC (4.30-5.90) m/uL Hgb (13.0-17.5) gm/dL Hct (39.0-53.0) % Chloride (98-107) mmol/L BUN (9-20) mg/dL Glucose (74-99) mg/dL POC Glucose (mg/dL) 226 H 240 H (75-99) mg/dL Calcium (8.4-10.2) mg/dL AST (17-59) U/L ALT (21-72) U/L Creatine Kinase (55-170) U/L Total Protein (6.3-8.2) g/dL Albumin (3.5-5.0) g/dL Microbiology - Last 24 Hours (Table) 10/25/19 21:58 Urine Culture - Final Urine,Catheterized 10/25/19 18:04 Blood Culture - Preliminary Blood No Growth after 24 hours Assessment and Plan Assessment: 1. ROBERT, ATN, nonoliguric, improving 2. Rhabdomyolysis, improving 3. Mild volume overload. 4. Rib fractures from trauma PLAN Decrease IVF. Encourage increased PO intake. Repeat labs in am Increase activity as tolerated. Continue to avoid nephrotoxic meds.
[2019-10-27 20:40] LABS: Glucose,Whole Blood 200 mg/dL (75-99)
--- NOTE | 2019-10-27 21:36 | PN ---
PROGRESS NOTE DATE OF SERVICE: 10/27/2019. This 69-year-old gentleman who was admitted with acute renal failure with acute tubular necrosis, also had acute rhabdomyolysis. The patient being closely monitored at this time. The patient is complaining of severe pain also. No chest pain. No palpitations. PAST MEDICAL HISTORY: Reviewed. REVIEW OF SYSTEMS: Cardiovascular system: No angina or palpitations. RESPIRATORY: As mentioned earlier. GASTROINTESTINAL: As mentioned earlier. no numbness or weakness. Musculoskeletal as mentioned. CURRENT MEDICATIONS: Reviewed and include: 1. Tylenol p.r.n. 2. DuoNeb q.i.d. and p.r.n. 3. Symbicort 160/4.5 two puffs b.i.d. 4. Valium 5 mg q.4. 5. Colace. 6. Heparin 5000 subcu b.i.d. 7. NovoLog. 8. Reglan. 9. Metoprolol. 10.Narcan. 11.Zofran. 12.Protonix. 13.Flomax. 14.Zestril. 15.Ultram. 16.Doses are reviewed. PHYSICAL EXAM: Patient is alert and oriented times three. Pulse 101. Blood pressure 135/60, respirations 16, temperature 98.2, pulse ox 94% on room air. HEENT: Conjunctivae normal. NECK: No JVD. CARDIOVASCULAR: S1, S2 muffled. RESPIRATORY: Breath sounds diminished in the bases. A few scattered rhonchi and crackles. ABDOMEN: Soft, nontender. No mass palpable. LEGS: No edema. No swelling. NERVOUS SYSTEM: Higher functions as mentioned earlier. Moves all four limbs. Mild diffuse weakness. Sensation of the face significant bruise present. LABS: WBC 9.6, hemoglobin 9.6, sodium 139, potassium 4.3. Accu-Cheks 185, 226 and creatinine kinase 63. ASSESSMENT: 1. Acute renal failure from acute tubular necrosis present with prerenal factors as well as multifactorial. 2. Acute rhabdomyolysis. 3. Blunt trauma suffered from a bull attack resulting in multiple injuries and multiple rib fractures on the left side. 4. Atelectasis. 5. Facial contusion injuries on the left side. 6. Elevated plasma lactic acid. 7. Increased AST and ALT. 8. Diabetes mellitus type 2. 9. Increased WBC, possibly reactive. 10.Anemia, normocytic of undetermined origin. 11.History of bronchial asthma, chronic intermittent. 12.Hypertension. 13.Hyperlipidemia. 14.History of depression. 15.Obesity with body mass index of 54. RECOMMENDATIONS AND DISCUSSION: This 69-year-old gentleman who presented with multiple complex medical issues, we will monitor the patient closely, continue the current medications, management and symptomatic treatment. Otherwise, the patient had elevated creatinine indicating renal failure present on admission, which is improved significantly. Closely monitor. Once creatinine improved to 67, 63. Prognosis guarded. Further recommendations to follow. See orders for details. MMODL / IJN: [id number] /
[2019-10-28] MEDS: ACETAMINOPHEN TAB 325 MG TAB PO SCH ×4 (05:15→23:09)
[2019-10-28] MEDS: SODIUM CHLORIDE 0.9% 1,000 ML IV SCH ×3 (05:16→21:56)
[2019-10-28 07:04] LABS: Glucose,Whole Blood 183 mg/dL (75-99)
[2019-10-28] MEDS: PANTOPRAZOLE 40 MG TABLET PO SCH (08:20)
[2019-10-28] MEDS: TAMSULOSIN 0.4 MG CAP.ER.24H PO SCH (08:20)
[2019-10-28] MEDS: VENLAFAXINE HCL 75 MG TAB PO SCH ×3 (08:20→20:50)
[2019-10-28] MEDS: HEPARIN SODIUM,PORCINE 5,000 UNIT/ML 1 ML VIAL SQ SCH ×2 (08:20→20:50)
[2019-10-28] MEDS: INSULIN ASPART (NovoLOG) 100 UNIT/ML VIAL SQ SCH ×4 (08:20→20:50)
[2019-10-28] MEDS: LIDOCAINE 5% PATCH TOPICAL SCH (08:21)
[2019-10-28 08:27] LABS: HCT 27.9 % (39.0-53.0); HGB 9.3 gm/dL (13.0-17.5); MCHC 33.1 g/dL (31.0-37.0); MCV 93.5 fL (80.0-100.0); Mean Platelet Volume 7.9; Platelet Count 157 k/uL (150-450); RBC 2.99 m/uL (4.30-5.90); RDW 13.3 % (11.5-15.5); WBC 9.7 k/uL (3.8-10.6)
[2019-10-28 08:42] LABS: ALT 87 U/L (21-72); AST 72 U/L (17-59); African American GFR (CKD) >90 (>60 ml/min/1.73 sqM); Albumin 2.8 g/dL (3.5-5.0); Alkaline Phosphatase 44 U/L (38-126); Anion Gap 5 mmol/L; Blood Urea Nitrogen 23 mg/dL (9-20); Calcium 8.1 mg/dL (8.4-10.2); Carbon Dioxide 25 mmol/L (22-30); Chloride 108 mmol/L (98-107); Glucose 188 mg/dL (74-99); Non-African American GFR(CKD) >90 (>60 ml/min/1.73 sqM); Potassium 4.3 mmol/L (3.5-5.1); Sodium 138 mmol/L (137-145); Total Protein 5.2 g/dL (6.3-8.2)
[2019-10-28] MEDS: IPRATROPIUM-ALBUTEROL 3 ML NEB INHALATION SCH ×4 (08:48→20:02)
[2019-10-28] MEDS: SYMBICORT 160-4.5 MCG INHALER INHALATION SCH ×2 (08:48→20:02)
[2019-10-28 09:05] LABS: Creatine Kinase 2805 U/L (55-170)
[2019-10-28] MEDS: NYSTATIN 100,000 UNIT/ML SUSP 500,000 UNIT/5 ML CUP PO SCH ×4 (10:11→20:50)
[2019-10-28] MEDS: MAG HYDROX/AL HYDROX/SIMETH 30 ML, diphenhydrAMINE ELIXIR 75 MG, LIDOCAINE VISCOUS 30 ML PO SCH ×9 (10:11→20:50)
--- NOTE | 2019-10-28 11:13 | P.PN ---
Subjective Progress Note Date: 10/28/19 Principal diagnosis: Crush injury Okay the patient is feeling much better today. Denies any shortness of breath. He is using his incentive spirometry. He is been ambulating with less difficulty. He still requires some slight assistance to get out of bed. Bailey catheter was just removed this morning. Complaining of pain in his mouth. It hurts to try to swallow Objective - Vital Signs Vital signs: Vital Signs Temp 98.7 F 10/28/19 07:00 Pulse 86 10/28/19 08:15 Resp 15 10/28/19 08:15 BP 161/71 10/28/19 07:00 Pulse Ox 92 L 10/28/19 07:00 Intake & Output 10/27/19 10/28/19 10/28/19 18:59 06:59 18:59 Intake Total 1100 300 Output Total 400 800 800 Balance 700 -500 -800 Intake: Intake, IV Titration 1100 300 Amount Sodium Chloride 0.9% 1, 1100 300 000 ml @ 100 mls/hr IV . Q10H [facility] Rx#:[id number] Output: Urine 400 800 800 Other: Voiding Method Indwelling Catheter Indwelling Catheter # Voids 800 800 - Constitutional General appearance: Present: cooperative, no acute distress - EENT EENT Comment(s): There is whitish plaque on his tongue and roof of his mouth - Respiratory Respiratory: bilateral: CTA, diminished (Mildly at the base) - Labs CBC & Chem 7: 10/28/19 07:48 10/28/19 07:48 Labs: Abnormal Lab Results - Last 24 Hours (Table) 10/25/19 10/27/19 10/27/19 Range/Units 03:05 11:23 16:59 RBC (4.30-5.90) m/uL Hgb (13.0-17.5) gm/dL Hct (39.0-53.0) % Chloride (98-107) mmol/L BUN (9-20) mg/dL Glucose (74-99) mg/dL POC Glucose (mg/dL) 240 H 186 H (75-99) mg/dL Calcium (8.4-10.2) mg/dL AST (17-59) U/L ALT (21-72) U/L Creatine Kinase (55-170) U/L Myoglobin 9948 H (28-72) ng/mL Total Protein (6.3-8.2) g/dL Albumin (3.5-5.0) g/dL 10/27/19 10/28/19 10/28/19 Range/Units 20:39 07:01 07:48 RBC 2.99 L (4.30-5.90) m/uL Hgb 9.3 L (13.0-17.5) gm/dL Hct 27.9 L (39.0-53.0) % Chloride (98-107) mmol/L BUN (9-20) mg/dL Glucose (74-99) mg/dL POC Glucose (mg/dL) 200 H 183 H (75-99) mg/dL Calcium (8.4-10.2) mg/dL AST (17-59) U/L ALT (21-72) U/L Creatine Kinase (55-170) U/L Myoglobin (28-72) ng/mL Total Protein (6.3-8.2) g/dL Albumin (3.5-5.0) g/dL 10/28/19 Range/Units 07:48 RBC (4.30-5.90) m/uL Hgb (13.0-17.5) gm/dL Hct (39.0-53.0) % Chloride 108 H (98-107) mmol/L BUN 23 H (9-20) mg/dL Glucose 188 H (74-99) mg/dL POC Glucose (mg/dL) (75-99) mg/dL Calcium 8.1 L (8.4-10.2) mg/dL AST 72 H (17-59) U/L ALT 87 H (21-72) U/L Creatine Kinase 2805 H* (55-170) U/L Myoglobin (28-72) ng/mL Total Protein 5.2 L (6.3-8.2) g/dL Albumin 2.8 L (3.5-5.0) g/dL Microbiology - Last 24 Hours (Table) 10/25/19 18:04 Blood Culture - Preliminary Blood No Growth after 48 hours Assessment and Plan (1) Pain Current Visit: Yes Status: Acute Code(s): R52 - PAIN, UNSPECIFIED SNOMED Code(s): 86863784 (2) Crush injury Current Visit: Yes Status: Acute Code(s): T14.8XXA - OTHER INJURY OF UNSPECIFIED BODY REGION, INITIAL ENCOUNTER SNOMED Code(s): 928692043 (3) Facial laceration Current Visit: Yes Status: Acute Code(s): S01.81XA - LACERATION W/O FOREIGN BODY OF OTH PART OF HEAD, INIT ENCNTR SNOMED Code(s): 669901231 (4) Multiple fractures of ribs, left side, initial encounter for closed fracture Current Visit: Yes Status: Acute Code(s): S22.42XA - MULTIPLE FRACTURES OF RIBS, LEFT SIDE, INIT FOR CLOS FX SNOMED Code(s): 74775536 (5) Traumatic rhabdomyolysis Current Visit: Yes Status: Acute Code(s): T79.6XXA - TRAUMATIC ISCHEMIA OF MUSCLE, INITIAL ENCOUNTER SNOMED Code(s): 509572468 (6) Acute renal failure due to traumatic rhabdomyolysis Current Visit: Yes Status: Acute Code(s): N17.9 - ACUTE KIDNEY FAILURE, UNSPECIFIED; T79.6XXA - TRAUMATIC ISCHEMIA OF MUSCLE, INITIAL ENCOUNTER SNOMED Code(s): 128136654 (7) Urinary retention Current Visit: Yes Status: Acute Code(s): R33.9 - RETENTION OF URINE, UNSPECIFIED SNOMED Code(s): 454039109 (8) Diabetes Current Visit: Yes Status: Acute Code(s): E11.9 - TYPE 2 DIABETES MELLITUS WITHOUT COMPLICATIONS SNOMED Code(s): 96437988 (9) Oral candidiasis Current Visit: Yes Status: Acute Code(s): B37.0 - CANDIDAL STOMATITIS SNOMED Code(s): 44326574 Plan: We will monitor the patient to see whether he is able to void. If not the catheter will be reinserted and urology will be consulted. Start some nystatin swish and swallow. He can also have some cools mouthwash for discomfort. Increase activity as tolerated continue incentive spirometry and pulmonary toilet. Asked nephrology what medication he can be started on in regards to his blood pressure. Also check with internal medicine to see if he can resume his oral hypoglycemic medications.
--- NOTE | 2019-10-28 11:18 | P.PN ---
Subjective Patient is seen in follow-up for acute kidney injury. Renal function is back to baseline. CK levels are trending down. Bailey catheter was discontinued this morning. No active complaints at this time. Vital signs are stable. General: The patient appeared well nourished and normally developed. HEENT: Head exam is unremarkable. Neck is without jugular venous distension. LUNGS: Lungs are clear to auscultation and percussion. Breath sounds decreased. HEART: Rate and Rhythm are regular. First and second heart sounds normal. No murmurs, rubs or gallops. ABDOMEN: Abdominal exam reveals normal bowel sounds. Non-tender and non- distended. No evidence of peritonitis. EXTREMITITES: No clubbing, cyanosis, or edema. Bruising noted. Objective - Vital Signs Vital signs: Vital Signs Temp 98.7 F 10/28/19 07:00 Pulse 86 10/28/19 08:15 Resp 15 10/28/19 08:15 BP 161/71 10/28/19 07:00 Pulse Ox 92 L 10/28/19 07:00 Intake & Output 10/27/19 10/28/19 10/28/19 18:59 06:59 18:59 Intake Total 1100 300 Output Total 400 800 800 Balance 700 -500 -800 Intake: Intake, IV Titration 1100 300 Amount Sodium Chloride 0.9% 1, 1100 300 000 ml @ 100 mls/hr IV . Q10H [facility] Rx#:[id number] Output: Urine 400 800 800 Other: Voiding Method Indwelling Catheter Indwelling Catheter # Voids 800 800 - Labs CBC & Chem 7: 10/28/19 07:48 10/28/19 07:48 Labs: Abnormal Lab Results - Last 24 Hours (Table) 10/25/19 10/27/19 10/27/19 Range/Units 03:05 11:23 16:59 RBC (4.30-5.90) m/uL Hgb (13.0-17.5) gm/dL Hct (39.0-53.0) % Chloride (98-107) mmol/L BUN (9-20) mg/dL Glucose (74-99) mg/dL POC Glucose (mg/dL) 240 H 186 H (75-99) mg/dL Calcium (8.4-10.2) mg/dL AST (17-59) U/L ALT (21-72) U/L Creatine Kinase (55-170) U/L Myoglobin 9948 H (28-72) ng/mL Total Protein (6.3-8.2) g/dL Albumin (3.5-5.0) g/dL 10/27/19 10/28/19 10/28/19 Range/Units 20:39 07:01 07:48 RBC 2.99 L (4.30-5.90) m/uL Hgb 9.3 L (13.0-17.5) gm/dL Hct 27.9 L (39.0-53.0) % Chloride (98-107) mmol/L BUN (9-20) mg/dL Glucose (74-99) mg/dL POC Glucose (mg/dL) 200 H 183 H (75-99) mg/dL Calcium (8.4-10.2) mg/dL AST (17-59) U/L ALT (21-72) U/L Creatine Kinase (55-170) U/L Myoglobin (28-72) ng/mL Total Protein (6.3-8.2) g/dL Albumin (3.5-5.0) g/dL 10/28/19 Range/Units 07:48 RBC (4.30-5.90) m/uL Hgb (13.0-17.5) gm/dL Hct (39.0-53.0) % Chloride 108 H (98-107) mmol/L BUN 23 H (9-20) mg/dL Glucose 188 H (74-99) mg/dL POC Glucose (mg/dL) (75-99) mg/dL Calcium 8.1 L (8.4-10.2) mg/dL AST 72 H (17-59) U/L ALT 87 H (21-72) U/L Creatine Kinase 2805 H* (55-170) U/L Myoglobin (28-72) ng/mL Total Protein 5.2 L (6.3-8.2) g/dL Albumin 2.8 L (3.5-5.0) g/dL Microbiology - Last 24 Hours (Table) 10/25/19 18:04 Blood Culture - Preliminary Blood No Growth after 48 hours Assessment and Plan Plan: Assessment: 1. Acute kidney injury secondary to ATN secondary to rhabdomyolysis and further worsened with the use of NSAIDs, lisinopril and hydrochlorothiazide. Additionally he also received IV contrast dye on October 24. Resolved. GFR back to baseline. 2. Rhabdomyolysis secondary to trauma. Patient's initial UA did show moderate blood but only 1 RBC which is suggestive of myoglobinuria. CK levels trending down. 3. Benign hypertension. 4. Diabetes mellitus. 5. Rib fractures secondary to trauma. Plan: Further decrease rate of normal saline 50 mL an hour. Bailey catheter discontinued this morning. Monitor serial postvoid residuals to make sure no urinary retention. Continue to monitor renal function and urine output.
[2019-10-28 11:41] LABS: Glucose,Whole Blood 203 mg/dL (75-99)
[2019-10-28 16:32] LABS: Glucose,Whole Blood 176 mg/dL (75-99)
[2019-10-28] MEDS: metFORMIN 500 MG TAB PO SCH (17:49)
[2019-10-28] MEDS: DOCUSATE 100 MG CAP PO PRN (17:54)
--- NOTE | 2019-10-28 17:55 | PN ---
PROGRESS NOTE DATE OF SERVICE: 10/28/2019 This 69-year-old gentleman who was admitted with a fall and multiple other medical issues, including acute renal failure and rhabdomyolysis, is being closely monitored. The patient also has diabetes mellitus and sugars are elevated up to 200s. No chest pain. No palpitations. No fever. The patient has multiple rib fractures, also. PHYSICAL EXAMINATION: Alert and oriented x3. The pulse is 86, blood pressure 151/75, respirations 16, temperature 98.3, pulse ox 97% on room air. HEENT: Conjunctivae normal. NECK: No jugular venous distention. CARDIOVASCULAR SYSTEM: S1, S2 muffled. RESPIRATORY SYSTEM: Breath sounds diminished at the bases. A few scattered rhonchi and crackles. ABDOMEN: Soft, non-tender. LEGS: No edema. No swelling. NERVOUS SYSTEM: No focal deficit. LABS: WBC 9.6, hemoglobin 9.3, and calcium is 8. Total bilirubin is 1. ASSESSMENT: 1. Acute renal failure from acute tubular necrosis with prerenal factors as well as multifactorial. 2. Acute rhabdomyolysis. 3. Blunt trauma suffered from bull attack resulting in multiple injuries as well as multiple rib fractures on the left side. 4. Atelectasis. 5. Facial contusion injuries on the left side. 6. Elevated plasma lactic acid. 7. Elevated AST, ALT. 8. Diabetes mellitus, type 2. 9. Increased white count, possibly reactive. 10.Anemia, normocytic, of undetermined origin. 11.History of bronchial asthma, chronic intermittent. 12.Hypertension. 13.Hyperlipidemia. 14.History of depression. 15.Obesity with body mass index of 54. 16.FULL CODE. RECOMMENDATIONS AND DISCUSSION: In this 69-year-old gentleman who presented with multiple complex medical issues, we will monitor the patient closely, continue the current medications, continue symptomatic treatment. Otherwise, pain medications. Incentive spirometry. Guarded prognosis because of multiple complex medical issues. Further recommendations to follow. MMODL / IJN: [id number] /
[2019-10-28 20:46] LABS: Glucose,Whole Blood 180 mg/dL (75-99)
[2019-10-29] MEDS: HYDROmorphone 0.5 MG/0.5 ML SYRINGE IVP PRN ×4 (05:43→21:54)
[2019-10-29] MEDS: ACETAMINOPHEN TAB 325 MG TAB PO SCH ×3 (05:43→17:38)
[2019-10-29 06:56] LABS: Glucose,Whole Blood 201 mg/dL (75-99)
[2019-10-29] MEDS: SYMBICORT 160-4.5 MCG INHALER INHALATION SCH ×2 (07:47→19:37)
[2019-10-29] MEDS: IPRATROPIUM-ALBUTEROL 3 ML NEB INHALATION SCH ×4 (07:47→19:37)
[2019-10-29] MEDS: LIDOCAINE 5% PATCH TOPICAL SCH (08:19)
[2019-10-29] MEDS: PANTOPRAZOLE 40 MG TABLET PO SCH (08:20)
[2019-10-29] MEDS: TAMSULOSIN 0.4 MG CAP.ER.24H PO SCH (08:20)
[2019-10-29] MEDS: GLIMEPIRIDE 2 MG TAB PO SCH (08:20)
[2019-10-29] MEDS: MAG HYDROX/AL HYDROX/SIMETH 30 ML, diphenhydrAMINE ELIXIR 75 MG, LIDOCAINE VISCOUS 30 ML PO SCH ×9 (08:20→21:56)
[2019-10-29] MEDS: INSULIN ASPART (NovoLOG) 100 UNIT/ML VIAL SQ SCH ×4 (08:20→22:05)
[2019-10-29] MEDS: NYSTATIN 100,000 UNIT/ML SUSP 500,000 UNIT/5 ML CUP PO SCH ×4 (08:20→21:53)
[2019-10-29] MEDS: LISINOPRIL-HCTZ 20-25 MG 1 EACH TAB PO SCH (08:20)
[2019-10-29] MEDS: metFORMIN 500 MG TAB PO SCH ×2 (08:20→17:39)
[2019-10-29] MEDS: VENLAFAXINE HCL 75 MG TAB PO SCH ×3 (08:21→21:56)
[2019-10-29] MEDS: HEPARIN SODIUM,PORCINE 5,000 UNIT/ML 1 ML VIAL SQ SCH ×2 (08:21→21:55)
[2019-10-29 11:38] LABS: Glucose,Whole Blood 144 mg/dL (75-99)
[2019-10-29] MEDS: DOCUSATE 100 MG CAP PO PRN (12:43)
--- NOTE | 2019-10-29 13:14 | P.PN ---
Subjective Progress Note Date: 10/29/19 Principal diagnosis: Crush injury Patient is seen on rounds. He is fairly comfortable at rest. He has pain with attempting to get out of bed. He is ambulating well. His voiding well. He had some nausea and dry heaves this morning. He's not had a bowel movement since admission. He is passing flatus. Denies abdominal pain. Denies shortness of breath. Objective - Vital Signs Vital signs: Vital Signs Temp 98.5 F 10/29/19 07:00 Pulse 75 10/29/19 08:30 Resp 15 10/29/19 08:30 BP 163/74 10/29/19 07:00 Pulse Ox 96 10/29/19 07:00 Intake & Output 10/28/19 10/29/19 10/29/19 18:59 06:59 18:59 Intake Total 175 Output Total 1050 250 Balance -1050 175 -250 Intake: Intake, IV Titration 175 Amount Sodium Chloride 0.9% 1, 175 000 ml @ 50 mls/hr IV . Q20H [facility] Rx#:[id number] Output: Urine 1050 250 Other: Voiding Method Urinal Urinal Urinal # Voids 1 2 2 - Constitutional General appearance: Present: cooperative, no acute distress - Respiratory Respiratory: bilateral: CTA, diminished (Minimally at the bases) - Cardiovascular Rhythm: regular - Gastrointestinal General gastrointestinal: Present: distended (Softly distended), normal bowel sounds. Absent: tenderness - Labs CBC & Chem 7: 10/28/19 07:48 10/28/19 07:48 Labs: Abnormal Lab Results - Last 24 Hours (Table) 10/28/19 10/28/19 10/29/19 Range/Units 16:30 20:44 06:52 POC Glucose (mg/dL) 176 H 180 H 201 H (75-99) mg/dL 10/29/19 Range/Units 11:37 POC Glucose (mg/dL) 144 H (75-99) mg/dL Microbiology - Last 24 Hours (Table) 10/25/19 18:04 Blood Culture - Preliminary Blood No Growth after 72 hours Assessment and Plan (1) Pain Current Visit: Yes Status: Acute Code(s): R52 - PAIN, UNSPECIFIED SNOMED Code(s): 17611756 (2) Crush injury Current Visit: Yes Status: Acute Code(s): T14.8XXA - OTHER INJURY OF UNSPECIFIED BODY REGION, INITIAL ENCOUNTER SNOMED Code(s): 677115366 (3) Facial laceration Current Visit: Yes Status: Acute Code(s): S01.81XA - LACERATION W/O FOREIGN BODY OF OTH PART OF HEAD, INIT ENCNTR SNOMED Code(s): 621902366 (4) Multiple fractures of ribs, left side, initial encounter for closed fracture Current Visit: Yes Status: Acute Code(s): S22.42XA - MULTIPLE FRACTURES OF RIBS, LEFT SIDE, INIT FOR CLOS FX SNOMED Code(s): 17230834 (5) Traumatic rhabdomyolysis Current Visit: Yes Status: Acute Code(s): T79.6XXA - TRAUMATIC ISCHEMIA OF MUSCLE, INITIAL ENCOUNTER SNOMED Code(s): 425854594 (6) Acute renal failure due to traumatic rhabdomyolysis Current Visit: Yes Status: Acute Code(s): N17.9 - ACUTE KIDNEY FAILURE, UNSPECIFIED; T79.6XXA - TRAUMATIC ISCHEMIA OF MUSCLE, INITIAL ENCOUNTER SNOMED Code(s): 783233844 (7) Urinary retention Current Visit: Yes Status: Acute Code(s): R33.9 - RETENTION OF URINE, UNSPECIFIED SNOMED Code(s): 374171961 (8) Diabetes Current Visit: Yes Status: Acute Code(s): E11.9 - TYPE 2 DIABETES MELLITUS WITHOUT COMPLICATIONS SNOMED Code(s): 74804623 (9) Oral candidiasis Current Visit: Yes Status: Acute Code(s): B37.0 - CANDIDAL STOMATITIS SNOMED Code(s): 65368138 Plan: The patient's progressing slowly. The nausea is likely due to constipation. Something will be ordered. Increase activity as tolerated. Likely ready for discharge in the next 1-2 days.
--- NOTE | 2019-10-29 15:12 | PN ---
PROGRESS NOTE DATE OF SERVICE: 10/29/2019 This 69-year-old gentleman who was admitted with acute renal failure secondary to rhabdomyolysis is being closely monitored. The patient is complaining of severe aches and pains at this time. The most recent creatinine yesterday was 0.66 and hemoglobin 9.3. The CK is 2805. The patient has multiple rib fractures, also. The most recent chest x-ray, which was done on 10/26/2019, which was personally reviewed by me, showed a small left pleural effusion associated with basal atelectasis. Past medical history reviewed. REVIEW OF SYSTEMS: CARDIOVASCULAR SYSTEM: As mentioned earlier. RESPIRATORY SYSTEM: As mentioned earlier. GI: No nausea, vomiting. : As mentioned earlier. NERVOUS SYSTEM: No numbness, weakness. MUSCULOSKELETAL: As mentioned earlier. CURRENT MEDICATIONS: 1. Tylenol 650 q.6 p.r.n. 2. DuoNeb q.i.d. and p.r.n. 3. Dulcolax. 4. Symbicort 160/4.5 two puffs b.i.d. 5. Valium 5 mg q.4 p.r.n. 6. Colace. 7. Amaryl. 8. Zestoretic 20/25 mg p.o. daily. 9. Heparin. 10.Dilaudid. 11.Lidoderm. 12.Glucophage. 13.Reglan. 14.Narcan. 15.Mycostatin. 16.Protonix. 17.Flomax. 18.Ultram. 19.Effexor. PHYSICAL EXAMINATION: Patient is alert, oriented x3. Pulse 75, pressure 163/74, respiration 15, temperature 98.5, pulse ox 96% on room air. HEENT: Conjunctivae normal. NECK: No jugular venous distention. CARDIOVASCULAR SYSTEM: S1, S2 muffled. RESPIRATORY SYSTEM: Breath sounds diminished at the bases. A few scattered rhonchi and crackles. Breath sounds are diminished in the left side. ABDOMEN: Soft, non-tender. LEGS: No edema. No swelling. NERVOUS SYSTEM: No focal deficit. LABS: WBC 9.7, hemoglobin 9.3. Sodium 138, potassium 4.3. ASSESSMENT: 1. Acute renal failure from acute tubular necrosis with prerenal factors as well as multifactorial from acute rhabdomyolysis as well. 2. Blunt trauma suffered from bull attack resulting in multiple injuries as well as acute rhabdomyolysis. 3. Multiple rib fractures on the left. 4. Atelectasis. 5. Left pleural effusion, possibly hemothorax. 6. Facial contusion injuries on the left side. 7. Elevated plasma lactic acid. 8. Elevated AST, ALT. 9. Diabetes mellitus, type 2. 10.Increased white count, possibly reactive. 11.Anemia, normocytic, of undetermined origin. 12.History of bronchial asthma, chronic intermittent. 13.Hypertension. 14.Hyperlipidemia. 15.History of depression. 16.Obesity with a body mass index of 54. 17.FULL CODE. RECOMMENDATIONS AND DISCUSSION: I recommend to continue current medications, continue with the monitoring, symptomatic treatment. Continue with the bronchodilators. Continue with incentive spirometry. I would also recommend repeat labs. I also recommend consultation with Dr. Martines regarding the pleural effusion or hemothorax. I will obtain a two-view chest x-ray. Continue to monitor. See the other orders. Further recommendations to follow. Prognosis guarded. MMODL / IJN: [id number] /
[2019-10-29 16:32] LABS: ALT 90 U/L (21-72); AST 64 U/L (17-59); African American GFR (CKD) >90 (>60 ml/min/1.73 sqM); Alkaline Phosphatase 43 U/L (38-126); Anion Gap 5 mmol/L; Blood Urea Nitrogen 20 mg/dL (9-20); Calcium 8.4 mg/dL (8.4-10.2); Carbon Dioxide 24 mmol/L (22-30); Chloride 107 mmol/L (98-107); Glucose 136 mg/dL (74-99); Non-African American GFR(CKD) >90 (>60 ml/min/1.73 sqM); Potassium 4.4 mmol/L (3.5-5.1); Sodium 136 mmol/L (137-145); Total Bilirubin 1.1 mg/dL (0.2-1.3); Total Protein 5.4 g/dL (6.3-8.2)
[2019-10-29 16:55] LABS: Glucose,Whole Blood 181 mg/dL (75-99)
--- NOTE | 2019-10-29 16:58 | P.CNPUL ---
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 He sustained blunt head trauma and possibly lost consciousness, also sustained blunt force trauma to the thorax and abdomen. CT of the chest abdomen and pelvis revealed multiple left- sided nondisplaced rib fractures, and minimal subsegmental atelectasis in the left lung, no evidence of pneumothorax. Sigmoid diverticulosis, liver, spleen, stomach, pancreas, gallbladder were within normal limits, small cyst on the right kidney. Past medical history is positive for chronic bronchial asthma, unspecified, diabetes mellitus type 2, hypertension, hyperlipidemia, never smok er. Patient has been receiving Ultram, morphine and Dilaudid for pain control, he has been encouraged to use incentive spirometry. Patient sustained acute kidney injury secondary to ATN and rhabdomyolysis. This was worsened by use of NSAIDs, lisinopril and hydrochlorothiazide in addition to IV contrast dye. He has been receiving IV fluids, and his kidney function has actually returned to normal after several days of IV hydration, and his CPKs have been trending down, from 10,156 on admission down to 2800 on yesterday's labs. Patient's last chest x-ray on 10/26/2019 showed a new small left pleural effusion or fluid collection and associated left basilar atelectasis and/or infiltrate. However the vital signs are stable, patient is on room air, and his pulse ox is 94-96%, her have been no repeat chest x-rays in the last few days, patient is still having generalized pain, but he is able to deep breathe and cough, and use his incentive spirometer. He continues on oral and IV pain medications for pain control, vital signs are stable, and we were asked to see the patient for a possibility of small left hemothorax related to multiple rib fractures Review of Systems All systems: negative Constitutional: Denies chills, Denies fever Eyes: denies blurred vision, denies pain Ears, nose, mouth and throat: Denies headache, Denies sore throat Cardiovascular: Denies chest pain, Denies shortness of breath Respiratory: Reports dyspnea, Reports pain, Reports pain on inspiration, Denies cough Gastrointestinal: Denies abdominal pain, Denies diarrhea, Denies nausea, Denies vomiting Musculoskeletal: Denies myalgias Integumentary: Denies pruritus, Denies rash Neurological: Denies numbness, Denies weakness Psychiatric: Denies anxiety, Denies depression Endocrine: Denies fatigue, Denies weight change Past Medical History Past Medical History: Asthma, Diabetes Mellitus, Hyperlipidemia, Hypertension History of Any Multi-Drug Resistant Organisms: None Reported Additional Past Surgical History / Comment(s): colonoscopy Past Anesthesia/Blood Transfusion Reactions: No Reported Reaction Past Psychological History: Depression Smoking Status: Never smoker Past Alcohol Use History: None Reported Past Drug Use History: None Reported - Past Family History Father Family Medical History: Cancer Medications and Allergies Home Medications Medication Instructions Recorded Confirmed Type Glimepiride [Amaryl] 2 mg PO AC-BRKFST 02/24/17 10/24/19 History Lisinopril-Hctz 20-25 mg 1 tab PO DAILY 02/24/17 10/24/19 History [Zestoretic 20-25] Venlafaxine HCl [Effexor] 75 mg PO TID 02/24/17 10/24/19 History metFORMIN HCL 1,000 mg PO BID 02/24/17 10/24/19 History Mometasone/Formoterol [Dulera 200 2 puff INHALATION BID 10/25/19 10/25/19 History Mcg/5 Mcg Inhaler] Nystatin 100,000 Unit/ml Susp 500,000 unit PO QID #140 ml 10/29/19 Rx [Mycostatin Oral Susp] Tamsulosin [Flomax] 0.4 mg PO PC-BRKFST #30 cap.er.24h 10/29/19 Rx traMADol HCL 1 - 2 tab PO Q6HR PRN #30 tablet 10/29/19 Rx Allergies Allergy/AdvReac Type Severity Reaction Status Date / Time hay Allergy Itching Uncoded 10/25/19 10:31 Physical Exam Vitals: Vital Signs Temp Pulse Resp BP Pulse Ox 10/29/19 14:39 98.1 F 87 16 156/62 94 L 10/29/19 08:30 75 15 10/29/19 07:00 98.5 F 75 15 163/74 96 10/29/19 00:17 98.6 F 87 18 152/65 93 L 10/28/19 18:50 98.1 F 80 18 158/66 95 Intake and Output 10/29/19 10/29/19 10/29/19 06:59 14:59 22:59 Output Total 250 1 Balance -250 -1 Output: Urine 250 1 Other: Voiding Method Urinal # Voids 2 2 GENERAL EXAM: Alert, very pleasant, 69-year-old white male, with extensive bruising involving his left periorbital area, and bruising involving his bilateral posterior lower torso, hip area, bilateral inner thighs, posterior knee area, and posterior lower leg areas, comfortable in no apparent distress. HEAD: Normocephalic/atraumatic. EYES: Normal reaction of pupils, equal size. Conjunctiva pink, sclera white. NOSE: Clear with pink turbinates. THROAT: No erythema or exudates. NECK: No masses, no JVD, no thyroid enlargement, no adenopathy. CHEST: No chest wall deformity. Symmetrical expansion. LUNGS: Diminished breath sounds over left lower lobe, with no crackles, wheeze, rhonchi or dullness. CVS: Regular rate and rhythm, normal S1 and S2, no gallops, no murmurs, no rubs ABDOMEN: Soft, nontender. No hepatosplenomegaly, normal bowel sounds, no guarding or rigidity. EXTREMITIES: No clubbing, generalized nonpitting edema, increased nonpitting lower extremity edema, no cyanosis, 2+ pulses and upper and lower extremities. MUSCULOSKELETAL: Muscle strength and tone normal. SPINE: No scoliosis or deformity SKIN: Diffuse large areas of ecchymosis involving bilateral posterior lower torso, hip area, bilateral inner thighs, posterior or any areas posterior lower leg areas CENTRAL NERVOUS SYSTEM: Alert and oriented -3. No focal deficits, tone is normal in all 4 extremities. PSYCHIATRIC: Alert and oriented -3. Appropriate affect. Intact judgment and insight. Results - Laboratory Findings CBC and BMP: 10/28/19 07:48 10/29/19 14:49 PT/INR, D-dimer PT 10.2 sec (9.0-12.0) 10/24/19 17:52 INR 0.9 (<1.2) 10/24/19 17:52 Abnormal lab findings: Abnormal Labs 10/24/19 10/24/19 10/24/19 17:44 17:52 17:52 WBC 23.0 H RBC Hgb Hct Neutrophils # 18.9 H Lymphocytes # Monocytes # 1.1 H APTT Sodium Chloride BUN 38 H Creatinine Glucose 251 H POC Glucose (mg/dL) 270 H Plasma Lactic Acid Nathanael Calcium AST ALT Creatine Kinase Total Creatine Kinase CK-MB (CK-2) Myoglobin Total Protein Albumin Ur Specific [place] Urine Protein Urine Glucose (UA) Urine Blood Ur Leukocyte Esterase Urine RBC Urine WBC Urine Bacteria Hyaline Casts Urine Mucus Urine Opiates Screen 10/24/19 10/24/19 10/24/19 17:52 17:52 17:52 WBC RBC Hgb Hct Neutrophils # Lymphocytes # Monocytes # APTT 21.0 L Sodium Chloride BUN Creatinine Glucose POC Glucose (mg/dL) Plasma Lactic Acid Nathanael 3.4 H* Calcium AST ALT Creatine Kinase Total Creatine Kinase 1124 H* CK-MB (CK-2) 21.9 H Myoglobin Total Protein Albumin Ur Specific [place] Urine Protein Urine Glucose (UA) Urine Blood Ur Leukocyte Esterase Urine RBC Urine WBC Urine Bacteria Hyaline Casts Urine Mucus Urine Opiates Screen 10/24/19 10/24/19 10/25/19 22:56 23:23 02:33 WBC RBC Hgb Hct Neutrophils # Lymphocytes # Monocytes # APTT Sodium Chloride BUN Creatinine Glucose POC Glucose (mg/dL) 310 H Plasma Lactic Acid Nathanael 3.7 H* Calcium AST ALT Creatine Kinase Total Creatine Kinase CK-MB (CK-2) Myoglobin Total Protein Albumin Ur Specific [place] 1.044 H Urine Protein 2+ H Urine Glucose (UA) 2+ H Urine Blood Moderate H Ur Leukocyte Esterase Urine RBC Urine WBC Urine Bacteria Rare H Hyaline Casts 3 H Urine Mucus Rare H Urine Opiates Screen 10/25/19 10/25/19 10/25/19 02:33 03:05 03:05 WBC 18.8 H RBC 3.88 L Hgb 12.2 L Hct 36.0 L Neutrophils # 16.5 H Lymphocytes # 0.7 L Monocytes # 1.5 H APTT Sodium Chloride 108 H BUN 47 H Creatinine 1.34 H Glucose 249 H POC Glucose (mg/dL) Plasma Lactic Acid Nathanael Calcium AST ALT Creatine Kinase Total Creatine Kinase CK-MB (CK-2) Myoglobin Total Protein Albumin Ur Specific [place] Urine Protein Urine Glucose (UA) Urine Blood Ur Leukocyte Esterase Urine RBC Urine WBC Urine Bacteria Hyaline Casts Urine Mucus Urine Opiates Screen Detected H 10/25/19 10/25/19 10/25/19 03:05 03:05 03:39 WBC RBC Hgb Hct Neutrophils # Lymphocytes # Monocytes # APTT Sodium Chloride BUN Creatinine Glucose POC Glucose (mg/dL) 271 H Plasma Lactic Acid Nathanael 3.2 H* Calcium AST ALT Creatine Kinase Total Creatine Kinase CK-MB (CK-2) Myoglobin 9948 H Total Protein Albumin Ur Specific [place] Urine Protein Urine Glucose (UA) Urine Blood Ur Leukocyte Esterase Urine RBC Urine WBC Urine Bacteria Hyaline Casts Urine Mucus Urine Opiates Screen 10/25/19 10/25/19 10/25/19 06:07 06:46 07:05 WBC RBC Hgb Hct Neutrophils # Lymphocytes # Monocytes # APTT Sodium Chloride BUN Creatinine Glucose POC Glucose (mg/dL) 267 H Plasma Lactic Acid Nathanael 3.6 H* Calcium AST ALT Creatine Kinase 53755 H* Total Creatine Kinase CK-MB (CK-2) Myoglobin Total Protein Albumin Ur Specific [place] Urine Protein Urine Glucose (UA) Urine Blood Ur Leukocyte Esterase Urine RBC Urine WBC Urine Bacteria Hyaline Casts Urine Mucus Urine Opiates Screen 10/25/19 10/25/19 10/25/19 09:07 10:41 11:21 WBC RBC Hgb Hct Neutrophils # Lymphocytes # Monocytes # APTT Sodium Chloride BUN Creatinine Glucose POC Glucose (mg/dL) 244 H Plasma Lactic Acid Nathanael 3.2 H* Calcium AST ALT Creatine Kinase Total Creatine Kinase CK-MB (CK-2) Myoglobin Total Protein Albumin Ur Specific [place] >1.050 H Urine Protein 1+ H Urine Glucose (UA) Trace H Urine Blood Large H Ur Leukocyte Esterase Small H Urine RBC 40 H Urine WBC 75 H Urine Bacteria Rare H Hyaline Casts Urine Mucus Rare H Urine Opiates Screen 10/25/19 10/25/19 10/25/19 13:56 13:56 16:10 WBC RBC Hgb Hct Neutrophils # Lymphocytes # Monocytes # APTT Sodium Chloride BUN 55 H Creatinine 2.52 H Glucose 213 H POC Glucose (mg/dL) 334 H Plasma Lactic Acid Nathanael 3.3 H* Calcium 8.0 L AST 168 H ALT 91 H Creatine Kinase Total Creatine Kinase CK-MB (CK-2) Myoglobin Total Protein 5.3 L Albumin 3.2 L Ur Specific [place] Urine Protein Urine Glucose (UA) Urine Blood Ur Leukocyte Esterase Urine RBC Urine WBC Urine Bacteria Hyaline Casts Urine Mucus Urine Opiates Screen 10/25/19 10/25/19 10/26/19 18:04 21:16 06:28 WBC 11.3 H RBC 2.91 L Hgb 9.3 L D Hct 27.0 L Neutrophils # Lymphocytes # Monocytes # APTT Sodium Chloride BUN 58 H Creatinine 2.67 H Glucose 177 H POC Glucose (mg/dL) 165 H Plasma Lactic Acid Nathanael Calcium 7.8 L AST 169 H ALT 98 H Creatine Kinase Total Creatine Kinase CK-MB (CK-2) Myoglobin Total Protein 5.3 L Albumin 3.1 L Ur Specific [place] Urine Protein Urine Glucose (UA) Urine Blood Ur Leukocyte Esterase Urine RBC Urine WBC Urine Bacteria Hyaline Casts Urine Mucus Urine Opiates Screen 10/26/19 10/26/19 10/26/19 06:28 07:01 11:20 WBC RBC Hgb Hct Neutrophils # Lymphocytes # Monocytes # APTT Sodium Chloride 109 H BUN 56 H Creatinine 1.66 H Glucose 164 H POC Glucose (mg/dL) 201 H 196 H Plasma Lactic Acid Nathanael Calcium 7.5 L AST 142 H ALT 95 H Creatine Kinase 86106 H* Total Creatine Kinase CK-MB (CK-2) Myoglobin Total Protein 5.0 L Albumin 2.9 L Ur Specific [place] Urine Protein Urine Glucose (UA) Urine Blood Ur Leukocyte Esterase Urine RBC Urine WBC Urine Bacteria Hyaline Casts Urine Mucus Urine Opiates Screen 10/26/19 10/26/19 10/27/19 16:49 21:02 06:52 WBC RBC 2.91 L Hgb 9.3 L Hct 27.3 L Neutrophils # Lymphocytes # Monocytes # APTT Sodium Chloride BUN Creatinine Glucose POC Glucose (mg/dL) 197 H 247 H Plasma Lactic Acid Nathanael Calcium AST ALT Creatine Kinase Total Creatine Kinase CK-MB (CK-2) Myoglobin Total Protein Albumin Ur Specific [place] Urine Protein Urine Glucose (UA) Urine Blood Ur Leukocyte Esterase Urine RBC Urine WBC Urine Bacteria Hyaline Casts Urine Mucus Urine Opiates Screen 10/27/19 10/27/19 10/27/19 06:52 07:00 11:23 WBC RBC Hgb Hct Neutrophils # Lymphocytes # Monocytes # APTT Sodium Chloride 109 H BUN 34 H Creatinine Glucose 185 H POC Glucose (mg/dL) 226 H 240 H Plasma Lactic Acid Nathanael Calcium 8.0 L AST 112 H ALT 95 H Creatine Kinase 6063 H* Total Creatine Kinase CK-MB (CK-2) Myoglobin Total Protein 5.3 L Albumin 3.0 L Ur Specific [place] Urine Protein Urine Glucose (UA) Urine Blood Ur Leukocyte Esterase Urine RBC Urine WBC Urine Bacteria Hyaline Casts Urine Mucus Urine Opiates Screen 10/27/19 10/27/19 10/28/19 16:59 20:39 07:01 WBC RBC Hgb Hct Neutrophils # Lymphocytes # Monocytes # APTT Sodium Chloride BUN Creatinine Glucose POC Glucose (mg/dL) 186 H 200 H 183 H Plasma Lactic Acid Nathanael Calcium AST ALT Creatine Kinase Total Creatine Kinase CK-MB (CK-2) Myoglobin Total Protein Albumin Ur Specific [place] Urine Protein Urine Glucose (UA) Urine Blood Ur Leukocyte Esterase Urine RBC Urine WBC Urine Bacteria Hyaline Casts Urine Mucus Urine Opiates Screen 10/28/19 10/28/19 10/28/19 07:48 07:48 11:40 WBC RBC 2.99 L Hgb 9.3 L Hct 27.9 L Neutrophils # Lymphocytes # Monocytes # APTT Sodium Chloride 108 H BUN 23 H Creatinine Glucose 188 H POC Glucose (mg/dL) 203 H Plasma Lactic Acid Nathanael Calcium 8.1 L AST 72 H ALT 87 H Creatine Kinase 2805 H* Total Creatine Kinase CK-MB (CK-2) Myoglobin Total Protein 5.2 L Albumin 2.8 L Ur Specific [place] Urine Protein Urine Glucose (UA) Urine Blood Ur Leukocyte Esterase Urine RBC Urine WBC Urine Bacteria Hyaline Casts Urine Mucus Urine Opiates Screen 10/28/19 10/28/19 10/29/19 16:30 20:44 06:52 WBC RBC Hgb Hct Neutrophils # Lymphocytes # Monocytes # APTT Sodium Chloride BUN Creatinine Glucose POC Glucose (mg/dL) 176 H 180 H 201 H Plasma Lactic Acid Nathanael Calcium AST ALT Creatine Kinase Total Creatine Kinase CK-MB (CK-2) Myoglobin Total Protein Albumin Ur Specific [place] Urine Protein Urine Glucose (UA) Urine Blood Ur Leukocyte Esterase Urine RBC Urine WBC Urine Bacteria Hyaline Casts Urine Mucus Urine Opiates Screen 10/29/19 10/29/19 11:37 14:49 WBC RBC Hgb Hct Neutrophils # Lymphocytes # Monocytes # APTT Sodium 136 L Chloride BUN Creatinine 0.57 L Glucose 136 H POC Glucose (mg/dL) 144 H Plasma Lactic Acid Nathanael Calcium AST 64 H ALT 90 H Creatine Kinase Total Creatine Kinase CK-MB (CK-2) Myoglobin Total Protein 5.4 L Albumin 3.0 L Ur Specific [place] Urine Protein Urine Glucose (UA) Urine Blood Ur Leukocyte Esterase Urine RBC Urine WBC Urine Bacteria Hyaline Casts Urine Mucus Urine Opiates Screen - Diagnostic Findings Chest x-ray: report reviewed, image reviewed CT scan - chest: report reviewed, image reviewed Assessment and Plan Plan: Assessment: #1. Shortness of breath and left chest pain related to traumatic injury, and multiple rib fractures in the left chest following an attack by a bull #2. Small left pleural effusion, the possibility of hemothorax on the left, related to multiple rib fractures #3. Acute blood loss anemia, likely related to multiple areas of ecchymosis and hematomas following traumatic injury #4. Leukocytosis, reactive, improved #5. Acute kidney injury related to ATN, and rhabdomyolysis, recovered #6. Rhabdomyolysis secondary to trauma, improving #7. Hypertension #8. Diabetes mellitus type 2 Plan: We'll repeat a chest x-ray, continue pain control, continue encouraging deep breathing and coughing, if the left-sided pleural fluid pocket remains the same, no further intervention needed. If it is significantly larger may need to do left-sided thoracentesis. Continue breathing treatments, continue Symbicort. Clinically patient is stable, labs show improving renal profile, and improving rhabdomyolysis. Patient will also need outpatient follow-up with Dr. Montemayor in the office in 1 week post discharge. We'll review the chest x-ray once completed and make further recommendations I performed a history & physical examination of the patient and discussed their management with my nurse practitioner, Yaquelin Charles. I reviewed the nurse practitioner's note and agree with the documented findings and plan of care. Lung sounds are positive for diminished breath sounds on left base. The findings and the impression was discussed with the patient. I attest to the documentation by the nurse practitioner. Time with Patient: Greater than 30
[2019-10-29] MEDS: BISACODYL 5 MG TABLET.DR PO PRN (17:38)
--- NOTE | 2019-10-29 18:49 | XR ---
EXAMINATION TYPE: XR chest 2V DATE OF EXAM: 10/29/2019 COMPARISON: October 26, 2019 HISTORY: Pleural effusion TECHNIQUE: Frontal and lateral views of the chest are obtained. FINDINGS: There is blunting left costophrenic angle. There is no heart failure. There is mild infilt rate left lung base. There are no hilar masses. Heart size is normal. Heart is deviated slightly to t he left side. IMPRESSION: There is pleural fluid and atelectasis left lung base that appears slightly worse than l ast exam. There is probably a new 1.5 cm infiltrate right lung base compared to last exam. No heart f ailure.
[2019-10-29 21:07] LABS: Glucose,Whole Blood 144 mg/dL (75-99)
[2019-10-30] MEDS: ACETAMINOPHEN TAB 325 MG TAB PO SCH ×4 (00:23→16:59)
[2019-10-30] MEDS: SODIUM CHLORIDE 0.9% 1,000 ML IV SCH ×4 (00:25→21:27)
[2019-10-30] MEDS: HYDROmorphone 0.5 MG/0.5 ML SYRINGE IVP PRN (05:38)
[2019-10-30 06:59] LABS: Glucose,Whole Blood 156 mg/dL (75-99)
[2019-10-30] MEDS: SYMBICORT 160-4.5 MCG INHALER INHALATION SCH ×2 (07:24→21:13)
[2019-10-30] MEDS: IPRATROPIUM-ALBUTEROL 3 ML NEB INHALATION SCH ×4 (07:25→21:13)
[2019-10-30 08:12] LABS: Basophils % (A) 0 %; Eosinophils # (A) 0.3 k/uL (0-0.7); Eosinophils % (A) 4 %; HCT 27.7 % (39.0-53.0); HGB 9.2 gm/dL (13.0-17.5); Lymphocytes % (A) 12 %; MCHC 33.2 g/dL (31.0-37.0); MCV 93.3 fL (80.0-100.0); Monocytes # (A) 0.7 k/uL (0-1.0); Monocytes % (A) 9 %; Neutrophils # (A) 5.9 k/uL (1.3-7.7); Neutrophils % (A) 74 %; Platelet Count 259 k/uL (150-450); RBC 2.97 m/uL (4.30-5.90); RDW 13.6 % (11.5-15.5)
[2019-10-30] MEDS: LIDOCAINE 5% PATCH TOPICAL SCH (08:25)
[2019-10-30] MEDS: HEPARIN SODIUM,PORCINE 5,000 UNIT/ML 1 ML VIAL SQ SCH ×2 (08:26→21:26)
[2019-10-30] MEDS: GLIMEPIRIDE 2 MG TAB PO SCH (08:26)
[2019-10-30] MEDS: VENLAFAXINE HCL 75 MG TAB PO SCH ×3 (08:26→21:26)
[2019-10-30] MEDS: INSULIN ASPART (NovoLOG) 100 UNIT/ML VIAL SQ SCH ×4 (08:26→21:20)
[2019-10-30] MEDS: TAMSULOSIN 0.4 MG CAP.ER.24H PO SCH (08:26)
[2019-10-30] MEDS: metFORMIN 500 MG TAB PO SCH ×2 (08:26→16:59)
[2019-10-30] MEDS: PANTOPRAZOLE 40 MG TABLET PO SCH (08:26)
[2019-10-30] MEDS: LISINOPRIL-HCTZ 20-25 MG 1 EACH TAB PO SCH (08:27)
[2019-10-30] MEDS: NYSTATIN 100,000 UNIT/ML SUSP 500,000 UNIT/5 ML CUP PO SCH ×4 (08:27→21:25)
[2019-10-30] MEDS: MAG HYDROX/AL HYDROX/SIMETH 30 ML, diphenhydrAMINE ELIXIR 75 MG, LIDOCAINE VISCOUS 30 ML PO SCH ×9 (08:27→21:26)
--- NOTE | 2019-10-30 11:42 | P.PN ---
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 He sustained blunt head trauma and possibly lost consciousness, also sustained blunt force trauma to the thorax and abdomen. CT of the chest abdomen and pelvis revealed multiple left- sided nondisplaced rib fractures, and minimal subsegmental atelectasis in the le ft lung, no evidence of pneumothorax. Sigmoid diverticulosis, liver, spleen, stomach, pancreas, gallbladder were within normal limits, small cyst on the right kidney. Past medical history is positive for chronic bronchial asthma, unspecified, diabetes mellitus type 2, hypertension, hyperlipidemia, never smoker. Patient has been receiving Ultram, morphine and Dilaudid for pain control, he has been encouraged to use incentive spirometry. Patient sustained acute kidney injury secondary to ATN and rhabdomyolysis. This was worsened by use of NSAIDs, lisinopril and hydrochlorothiazide in addition to IV contrast dye. He has been receiving IV fluids, and his kidney function has actually returned to normal after several days of IV hydration, and his CPKs have been trending down, from 10,156 on admission down to 2800 on yesterday's labs. Patient's last chest x-ray on 10/26/2019 showed a new small left pleural effusion or fluid collection and associated left basilar atelectasis and/or infi ltrate. However the vital signs are stable, patient is on room air, and his pulse ox is 94-96%, her have been no repeat chest x-rays in the last few days, patient is still having generalized pain, but he is able to deep breathe and cough, and use his incentive spirometer. He continues on oral and IV pain medications for pain control, vital signs are stable, and we were asked to see the patient for a possibility of small left hemothorax related to multiple rib fractures On 10/30/2019 patient seen in follow-up on medical surgical floor. He is awake and alert, in no acute distress, may pulse ox is 94%, he is afebrile, hemodynamically stable, respirations are nonlabored, still has the diffuse pain related to multiple rib fractures, and multiple areas of bruising and hematomas due to his recent traumatic injury. Pain is reasonably controlled, he is on a combination of oral and IV medications, patient is tolerating ambulation, he is working on his incentive spirometer, repeat chest x-ray has been reviewed today showing small left pleural effusion and atelectasis in the left lung base, and a new infiltrate in the right lung base. Clinically patient is symptomatic, maintaining stable oxygenation, no fever or chills, today's white blood cell count is 8.0, hemoglobin is 9.2, CPKs are trending down, patient is on IV fluids at 50 ML per hour, nephrology is following, his renal function has completely recovered. Objective - Vital Signs Vital signs: Vital Signs Temp 97.6 F 10/30/19 06:59 Pulse 74 10/30/19 06:59 Resp 16 10/30/19 06:59 BP 137/66 10/30/19 06:59 Pulse Ox 94 L 10/30/19 06:59 Intake & Output 10/29/19 10/30/19 10/30/19 18:59 06:59 18:59 Output Total 251 Balance -251 Output: Urine 251 Other: Voiding Method Urinal Urinal # Voids 2 1 1 # Bowel Movements 1 - Exam GENERAL EXAM: Alert, very pleasant, 69-year-old white male, with extensive bruising involving his left periorbital area, and bruising involving his bilateral posterior lower torso, hip area, bilateral inner thighs, posterior knee area, and posterior lower leg areas, comfortable in no apparent distress. HEAD: Normocephalic/atraumatic. EYES: Normal reaction of pupils, equal size. Conjunctiva pink, sclera white. NOSE: Clear with pink turbinates. THROAT: No erythema or exudates. NECK: No masses, no JVD, no thyroid enlargement, no adenopathy. CHEST: No chest wall deformity. Symmetrical expansion. LUNGS: Diminished breath sounds over left lower lobe, with no crackles, wheeze, rhonchi or dullness. CVS: Regular rate and rhythm, normal S1 and S2, no gallops, no murmurs, no rubs ABDOMEN: Soft, nontender. No hepatosplenomegaly, normal bowel sounds, no guarding or rigidity. EXTREMITIES: No clubbing, generalized nonpitting edema, increased nonpitting lower extremity edema, no cyanosis, 2+ pulses and upper and lower extremities. MUSCULOSKELETAL: Muscle strength and tone normal. SPINE: No scoliosis or deformity SKIN: Diffuse large areas of ecchymosis involving bilateral posterior lower torso, hip area, bilateral inner thighs, posterior or any areas posterior lower leg areas CENTRAL NERVOUS SYSTEM: Alert and oriented -3. No focal deficits, tone is normal in all 4 extremities. PSYCHIATRIC: Alert and oriented -3. Appropriate affect. Intact judgment and insight. - Labs CBC & Chem 7: 10/30/19 06:41 10/29/19 14:49 Labs: Abnormal Lab Results - Last 24 Hours (Table) 10/29/19 10/29/19 10/29/19 Range/Units 11:37 14:49 16:46 RBC (4.30-5.90) m/uL Hgb (13.0-17.5) gm/dL Hct (39.0-53.0) % Sodium 136 L (137-145) mmol/L Creatinine 0.57 L (0.66-1.25) mg/dL Glucose 136 H (74-99) mg/dL POC Glucose (mg/dL) 144 H 181 H (75-99) mg/dL AST 64 H (17-59) U/L ALT 90 H (21-72) U/L Creatine Kinase (55-170) U/L Total Protein 5.4 L (6.3-8.2) g/dL Albumin 3.0 L (3.5-5.0) g/dL 10/29/19 10/30/19 10/30/19 Range/Units 21:05 06:41 06:41 RBC 2.97 L (4.30-5.90) m/uL Hgb 9.2 L (13.0-17.5) gm/dL Hct 27.7 L (39.0-53.0) % Sodium (137-145) mmol/L Creatinine (0.66-1.25) mg/dL Glucose (74-99) mg/dL POC Glucose (mg/dL) 144 H (75-99) mg/dL AST (17-59) U/L ALT (21-72) U/L Creatine Kinase 1080 H* (55-170) U/L Total Protein (6.3-8.2) g/dL Albumin (3.5-5.0) g/dL 10/30/19 Range/Units 06:57 RBC (4.30-5.90) m/uL Hgb (13.0-17.5) gm/dL Hct (39.0-53.0) % Sodium (137-145) mmol/L Creatinine (0.66-1.25) mg/dL Glucose (74-99) mg/dL POC Glucose (mg/dL) 156 H (75-99) mg/dL AST (17-59) U/L ALT (21-72) U/L Creatine Kinase (55-170) U/L Total Protein (6.3-8.2) g/dL Albumin (3.5-5.0) g/dL Microbiology - Last 24 Hours (Table) 10/25/19 18:04 Blood Culture - Preliminary Blood No Growth after 96 hours Assessment and Plan Plan: Assessment: #1. Shortness of breath and left chest pain related to traumatic injury, and multiple rib fractures in the left chest following an attack by a bull #2. Small left pleural effusion, the possibility of hemothorax on the left, related to multiple rib fractures #3. Acute blood loss anemia, likely related to multiple areas of ecchymosis and hematomas following traumatic injury #4. Leukocytosis, reactive, improved #5. Acute kidney injury related to ATN, and rhabdomyolysis, recovered #6. Rhabdomyolysis secondary to trauma, improving #7. Hypertension #8. Diabetes mellitus type 2 Plan: A chest x-ray has been reviewed, showing relatively stable left-sided pleural effusion, and a new area of infiltrate in the right lower lobe. Clinically patient is stable, no fever or chills, maintaining stable oxygenation on room air, continue with reading and coughing, encourage ambulation, and breathing brionna atments. No leukocytosis, no fever or chills. No plans for thoracentesis. I performed a history & physical examination of the patient and discussed their management with my nurse practitioner, Yaquelin Charles. I reviewed the nurse practitioner's note and agree with the documented findings and plan of care. Lung sounds are positive for diminished breath sounds on left base. The findings and the impression was discussed with the patient. I attest to the documentation by the nurse practitioner. Time with Patient: Less than 30
[2019-10-30 11:43] LABS: Glucose,Whole Blood 147 mg/dL (75-99)
[2019-10-30] MEDS: traMADol 50 MG TAB PO PRN ×2 (15:23→21:26)
[2019-10-30 16:35] LABS: Glucose,Whole Blood 129 mg/dL (75-99)
[2019-10-30] MEDS: ONDANSETRON 4 MG/2 ML VIAL IVP PRN (17:01)
[2019-10-30 18:58] LABS: ALT 121 U/L (21-72); AST 87 U/L (17-59); African American GFR (CKD) >90 (>60 ml/min/1.73 sqM); Albumin 3.2 g/dL (3.5-5.0); Alkaline Phosphatase 52 U/L (38-126); Anion Gap 4 mmol/L; Blood Urea Nitrogen 19 mg/dL (9-20); Calcium 8.9 mg/dL (8.4-10.2); Carbon Dioxide 30 mmol/L (22-30); Chloride 103 mmol/L (98-107); Glucose 116 mg/dL (74-99); Non-African American GFR(CKD) >90 (>60 ml/min/1.73 sqM); Potassium 3.9 mmol/L (3.5-5.1); Sodium 137 mmol/L (137-145); Total Bilirubin 1.3 mg/dL (0.2-1.3); Total Protein 5.8 g/dL (6.3-8.2)
--- NOTE | 2019-10-30 20:14 | PN ---
PROGRESS NOTE DATE OF SERVICE: 10/30/2019 This 69-year-old gentleman admitted with blunt injury after a bull attack and multiple rib fractures. Patient also showing some pleural effusion on the left side. Dr. Martines has evaluated the patient and recommended continued monitoring, possible hemothorax. CK is slightly high, but creatinine has returned normal. No chest pain. No palpitation. PHYSICAL EXAM: Alert and oriented x3. Pulse 83, blood pressure 149/58, respirations 16, temperature 98.2, pulse ox 94% on room air HEENT: Conjunctivae normal. Oral mucosa moist. NECK: No jugular venous distention. No lymph node enlargement. ( ) left side. CARDIOVASCULAR: S1, S2. RESPIRATORY: Diminished breath sounds at the bases. A few scattered rhonchi. ABDOMEN: Soft, nontender. LEGS: No swelling. Examination of the back: Significant bruise also present. LABS: At this time show WBC 8, hemoglobin 9.2 and creatinine kinase is 1080. Glucose noted. ASSESSMENT: 1. Acute renal failure from acute tubular necrosis with prerenal factors as well as multifactorial with acute rhabdomyolysis. 2. Blunt trauma from an attack by bull resulting in multiple injuries as well as acute rhabdomyolysis. 3. Multiple fractures on the left ribs. 4. Atelectasis. 5. Left pleural effusion, possibly hemothorax. 6. Facial contusion injuries on the left side. 7. Elevated plasma lactic acid present on admission, improved. 8. Elevated AST ALT, improving. 9. Diabetes mellitus type 2. 10.Increased WBC, possibly reactive, improving. 11.Anemia, normocytic of undetermined etiology. 12.History of bronchial asthma, chronic, intermittent. 13.Hypertension. 14.Hyperlipidemia. 15.History of depression. 16.Obesity with body mass index of 54. 17.FULL CODE. RECOMMENDATIONS AND DISCUSSION: I recommend to continue current medications, continue symptomatic treatment. Otherwise, repeat labs are ordered. The patient is on bronchodilators. We will continue to monitor. Continue the rest of medications. Closely follow with multiple consultants. Dr. Martines's input appreciated. Guarded prognosis. Further recommendations to follow. MMODL / IJN: [id number] /
[2019-10-30 21:16] LABS: Glucose,Whole Blood 126 mg/dL (75-99)
[2019-10-30] MEDS: TEMAZEPAM 15 MG CAP PO PRN (21:26)
[2019-10-31] MEDS: ACETAMINOPHEN TAB 325 MG TAB PO SCH ×5 (00:09→22:53)
[2019-10-31 06:56] LABS: Glucose,Whole Blood 128 mg/dL (75-99)
[2019-10-31] MEDS: INSULIN ASPART (NovoLOG) 100 UNIT/ML VIAL SQ SCH ×4 (06:58→20:32)
[2019-10-31 07:31] LABS: Basophils % (A) 0 %; Eosinophils # (A) 0.3 k/uL (0-0.7); Eosinophils % (A) 4 %; HCT 29.1 % (39.0-53.0); HGB 9.7 gm/dL (13.0-17.5); Lymphocytes # (A) 1.1 k/uL (1.0-4.8); Lymphocytes % (A) 12 %; MCH 31.2 pg (25.0-35.0); MCHC 33.2 g/dL (31.0-37.0); Mean Platelet Volume 7.5; Monocytes # (A) 0.6 k/uL (0-1.0); Monocytes % (A) 7 %; Neutrophils # (A) 6.5 k/uL (1.3-7.7); Neutrophils % (A) 75 %; Platelet Count 304 k/uL (150-450); RDW 14.2 % (11.5-15.5); WBC 8.6 k/uL (3.8-10.6)
[2019-10-31] MEDS: SYMBICORT 160-4.5 MCG INHALER INHALATION SCH ×2 (07:42→19:52)
[2019-10-31] MEDS: IPRATROPIUM-ALBUTEROL 3 ML NEB INHALATION SCH ×4 (07:42→19:52)
[2019-10-31] MEDS: LIDOCAINE 5% PATCH TOPICAL SCH (07:58)
[2019-10-31] MEDS: MAG HYDROX/AL HYDROX/SIMETH 30 ML, diphenhydrAMINE ELIXIR 75 MG, LIDOCAINE VISCOUS 30 ML PO SCH ×9 (07:58→19:54)
[2019-10-31] MEDS: NYSTATIN 100,000 UNIT/ML SUSP 500,000 UNIT/5 ML CUP PO SCH ×4 (07:58→19:54)
[2019-10-31] MEDS: VENLAFAXINE HCL 75 MG TAB PO SCH ×3 (07:59→20:30)
[2019-10-31] MEDS: traMADol 50 MG TAB PO PRN ×3 (07:59→22:57)
[2019-10-31] MEDS: PANTOPRAZOLE 40 MG TABLET PO SCH (07:59)
[2019-10-31] MEDS: LISINOPRIL-HCTZ 20-25 MG 1 EACH TAB PO SCH (07:59)
[2019-10-31] MEDS: GLIMEPIRIDE 2 MG TAB PO SCH (07:59)
[2019-10-31] MEDS: TAMSULOSIN 0.4 MG CAP.ER.24H PO SCH (07:59)
[2019-10-31] MEDS: HEPARIN SODIUM,PORCINE 5,000 UNIT/ML 1 ML VIAL SQ SCH ×2 (07:59→20:30)
[2019-10-31] MEDS: metFORMIN 500 MG TAB PO SCH ×2 (07:59→16:36)
[2019-10-31 11:20] LABS: Glucose,Whole Blood 148 mg/dL (75-99)
[2019-10-31] MEDS ORDERED: BENZOCAINE/MENTHOL LOZENG 1 EACH LOZENGE MUCOUS MEM PRN (11:25)
--- NOTE | 2019-10-31 11:42 | P.PN ---
Subjective Progress Note Date: 10/31/19 No acute events overnight, pulling 1700 on IS. Objective - Vital Signs Vital signs: Vital Signs Temp 97.9 F 10/31/19 07:00 Pulse 84 10/31/19 07:00 Resp 18 10/31/19 07:00 BP 135/66 10/31/19 07:00 Pulse Ox 95 10/31/19 07:00 Intake & Output 10/30/19 10/31/19 10/31/19 18:59 06:59 18:59 Intake Total 540 1180 Balance 540 1180 Intake: Intake, IV Titration 500 Amount Sodium Chloride 0.9% 1, 500 000 ml @ 50 mls/hr IV . Q20H [facility] Rx#:[id number] Oral 540 680 Other: Voiding Method Urinal Toilet Toilet Urinal Urinal # Voids 1 2 1 - Constitutional General appearance: Present: cooperative - Respiratory Details: nonlabored - Cardiovascular Rhythm: regular - Gastrointestinal Gastrointestinal Comment(s): S/NT - Psychiatric Psychiatric: Present: A&O x's 3 - Labs CBC & Chem 7: 10/31/19 06:51 10/30/19 18:16 Labs: Abnormal Lab Results - Last 24 Hours (Table) 10/30/19 10/30/19 10/30/19 Range/Units 11:41 16:30 18:16 RBC (4.30-5.90) m/uL Hgb (13.0-17.5) gm/dL Hct (39.0-53.0) % Glucose 116 H (74-99) mg/dL POC Glucose (mg/dL) 147 H 129 H (75-99) mg/dL AST 87 H (17-59) U/L ALT 121 H (21-72) U/L Total Protein 5.8 L (6.3-8.2) g/dL Albumin 3.2 L (3.5-5.0) g/dL 10/30/19 10/31/19 10/31/19 Range/Units 21:15 06:51 06:53 RBC 3.10 L (4.30-5.90) m/uL Hgb 9.7 L (13.0-17.5) gm/dL Hct 29.1 L (39.0-53.0) % Glucose (74-99) mg/dL POC Glucose (mg/dL) 126 H 128 H (75-99) mg/dL AST (17-59) U/L ALT (21-72) U/L Total Protein (6.3-8.2) g/dL Albumin (3.5-5.0) g/dL 10/31/19 Range/Units 11:19 RBC (4.30-5.90) m/uL Hgb (13.0-17.5) gm/dL Hct (39.0-53.0) % Glucose (74-99) mg/dL POC Glucose (mg/dL) 148 H (75-99) mg/dL AST (17-59) U/L ALT (21-72) U/L Total Protein (6.3-8.2) g/dL Albumin (3.5-5.0) g/dL Microbiology - Last 24 Hours (Table) 10/25/19 18:04 Blood Culture - Preliminary Blood No Growth after 120 hours Assessment and Plan Assessment: Rhabdo S/P crush injury, multiple rib fractures, pleural effusion vs hemothorax Plan: Continue to monitor CK. Downtrending. Continue with pain control. Follow up pulm recs.
--- NOTE | 2019-10-31 12:03 | P.PN ---
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 He sustained blunt head trauma and possibly lost consciousness, also sustained blunt force trauma to the thorax and abdomen. CT of the chest abdomen and pelvis revealed multiple left- sided nondisplaced rib fractures, and minimal subsegmental atelectasis in the le ft lung, no evidence of pneumothorax. Sigmoid diverticulosis, liver, spleen, stomach, pancreas, gallbladder were within normal limits, small cyst on the right kidney. Past medical history is positive for chronic bronchial asthma, unspecified, diabetes mellitus type 2, hypertension, hyperlipidemia, never smoker. Patient has been receiving Ultram, morphine and Dilaudid for pain control, he has been encouraged to use incentive spirometry. Patient sustained acute kidney injury secondary to ATN and rhabdomyolysis. This was worsened by use of NSAIDs, lisinopril and hydrochlorothiazide in addition to IV contrast dye. He has been receiving IV fluids, and his kidney function has actually returned to normal after several days of IV hydration, and his CPKs have been trending down, from 10,156 on admission down to 2800 on yesterday's labs. Patient's last chest x-ray on 10/26/2019 showed a new small left pleural effusion or fluid collection and associated left basilar atelectasis and/or infi ltrate. However the vital signs are stable, patient is on room air, and his pulse ox is 94-96%, her have been no repeat chest x-rays in the last few days, patient is still having generalized pain, but he is able to deep breathe and cough, and use his incentive spirometer. He continues on oral and IV pain medications for pain control, vital signs are stable, and we were asked to see the patient for a possibility of small left hemothorax related to multiple rib fractures On 10/30/2019 patient seen in follow-up on medical surgical floor. He is awake and alert, in no acute distress, may pulse ox is 94%, he is afebrile, hemodynamically stable, respirations are nonlabored, still has the diffuse pain related to multiple rib fractures, and multiple areas of bruising and hematomas due to his recent traumatic injury. Pain is reasonably controlled, he is on a combination of oral and IV medications, patient is tolerating ambulation, he is working on his incentive spirometer, repeat chest x-ray has been reviewed today showing small left pleural effusion and atelectasis in the left lung base, and a new infiltrate in the right lung base. Clinically patient is symptomatic, maintaining stable oxygenation, no fever or chills, today's white blood cell count is 8.0, hemoglobin is 9.2, CPKs are trending down, patient is on IV fluids at 50 ML per hour, nephrology is following, his renal function has completely recovered. On 10/31/2019 patient seen in follow-up on medical surgical floor. He is resting comfortably in bed, in no acute distress, he states his pain is better controlled, and patient seems to be less nauseous. He is pulling 1700 on his incentive spirometer, lung sounds are diminished at the left Benjamin, no rhonchi, no wheezing. Remains on room air pulse ox of 95%, afebrile. Continues on DVT prophylaxis, patient has actually been ambulating to the bathroom, tolerating activity well. Objective - Vital Signs Vital signs: Vital Signs Temp 97.9 F 10/31/19 07:00 Pulse 84 10/31/19 07:00 Resp 18 10/31/19 07:00 BP 135/66 10/31/19 07:00 Pulse Ox 95 10/31/19 07:00 Intake & Output 10/30/19 10/31/19 10/31/19 18:59 06:59 18:59 Intake Total 540 1180 Balance 540 1180 Intake: Intake, IV Titration 500 Amount Sodium Chloride 0.9% 1, 500 000 ml @ 50 mls/hr IV . Q20H [facility] Rx#:[id number] Oral 540 680 Other: Voiding Method Urinal Toilet Toilet Urinal Urinal # Voids 1 2 1 - Exam GENERAL EXAM: Alert, very pleasant, 69-year-old white male, with extensive bruising involving his left periorbital area, and bruising involving his bilateral posterior lower torso, hip area, bilateral inner thighs, posterior knee area, and posterior lower leg areas, comfortable in no apparent distress. HEAD: Normocephalic/atraumatic. EYES: Normal reaction of pupils, equal size. Conjunctiva pink, sclera white. NOSE: Clear with pink turbinates. THROAT: No erythema or exudates. NECK: No masses, no JVD, no thyroid enlargement, no adenopathy. CHEST: No chest wall deformity. Symmetrical expansion. LUNGS: Diminished breath sounds over left lower lobe, with no crackles, wheeze, rhonchi or dullness. CVS: Regular rate and rhythm, normal S1 and S2, no gallops, no murmurs, no rubs ABDOMEN: Soft, nontender. No hepatosplenomegaly, normal bowel sounds, no guarding or rigidity. EXTREMITIES: No clubbing, generalized nonpitting edema, increased nonpitting lower extremity edema, no cyanosis, 2+ pulses and upper and lower extremities. MUSCULOSKELETAL: Muscle strength and tone normal. SPINE: No scoliosis or deformity SKIN: Diffuse large areas of ecchymosis involving bilateral posterior lower torso, hip area, bilateral inner thighs, posterior or any areas posterior lower leg areas CENTRAL NERVOUS SYSTEM: Alert and oriented -3. No focal deficits, tone is normal in all 4 extremities. PSYCHIATRIC: Alert and oriented -3. Appropriate affect. Intact judgment and insight. - Labs CBC & Chem 7: 10/31/19 06:51 10/30/19 18:16 Labs: Abnormal Lab Results - Last 24 Hours (Table) 10/30/19 10/30/19 10/30/19 Range/Units 16:30 18:16 21:15 RBC (4.30-5.90) m/uL Hgb (13.0-17.5) gm/dL Hct (39.0-53.0) % Glucose 116 H (74-99) mg/dL POC Glucose (mg/dL) 129 H 126 H (75-99) mg/dL AST 87 H (17-59) U/L ALT 121 H (21-72) U/L Total Protein 5.8 L (6.3-8.2) g/dL Albumin 3.2 L (3.5-5.0) g/dL 10/31/19 10/31/19 10/31/19 Range/Units 06:51 06:53 11:19 RBC 3.10 L (4.30-5.90) m/uL Hgb 9.7 L (13.0-17.5) gm/dL Hct 29.1 L (39.0-53.0) % Glucose (74-99) mg/dL POC Glucose (mg/dL) 128 H 148 H (75-99) mg/dL AST (17-59) U/L ALT (21-72) U/L Total Protein (6.3-8.2) g/dL Albumin (3.5-5.0) g/dL Microbiology - Last 24 Hours (Table) 10/25/19 18:04 Blood Culture - Preliminary Blood No Growth after 120 hours Assessment and Plan Plan: Assessment: #1. Shortness of breath and left chest pain related to traumatic injury, and multiple rib fractures in the left chest following an attack by a bull #2. Small left pleural effusion, the possibility of hemothorax on the left, related to multiple rib fractures #3. Acute blood loss anemia, likely related to multiple areas of ecchymosis and hematomas following traumatic injury #4. Leukocytosis, reactive, improved #5. Acute kidney injury related to ATN, and rhabdomyolysis, recovered #6. Rhabdomyolysis secondary to trauma, improving #7. Hypertension #8. Diabetes mellitus type 2 Plan: Continue current medical treatment, continue encouraging deep breathing and coughing, patient is on room air, his pain seems to be better controlled, he has been tolerating ambulation. Continue with DVT prophylaxis, awaiting morning BMP. Continue bronchodilators I performed a history & physical examination of the patient and discussed their management with my nurse practitioner, Yaquelin Charles. I reviewed the nurse practitioner's note and agree with the documented findings and plan of care. Lung sounds are positive for diminished breath sounds on left base. The findings and the impression was discussed with the patient. I attest to the documentation by the nurse practitioner. Time with Patient: Less than 30
[2019-10-31] MEDS: ONDANSETRON 4 MG/2 ML VIAL IVP PRN (12:11)
[2019-10-31 12:13] LABS: African American GFR (CKD) >90 (>60 ml/min/1.73 sqM); Anion Gap 5 mmol/L; Blood Urea Nitrogen 22 mg/dL (9-20); Calcium 8.6 mg/dL (8.4-10.2); Carbon Dioxide 30 mmol/L (22-30); Chloride 102 mmol/L (98-107); Glucose 124 mg/dL (74-99); Non-African American GFR(CKD) >90 (>60 ml/min/1.73 sqM); Sodium 137 mmol/L (137-145)
[2019-10-31 16:43] LABS: Glucose,Whole Blood 168 mg/dL (75-99)
--- NOTE | 2019-10-31 19:43 | PN ---
PROGRESS NOTE DATE OF SERVICE: 10/31/2019. This 63-year-old gentleman who was admitted with acute renal failure from acute tubular necrosis with prerenal factors, being closely monitored at this time. The patient also had multiple rib fractures and rhabdomyolysis as well. Dr. William and Dr. Martines is following the patient closely. Patient also had left pleural effusion, possibly pneumothorax. Dr. Martines recommended outpatient follow up. negative. No chest pain. No palpitation. PHYSICAL EXAM: Alert and oriented x2. Pulse 87. Blood pressure 114/49, respiration 18, temperature 98 degrees, pulse ox 98% on room air. HEENT: Conjunctivae normal. Oral mucosa moist. NECK is no jugular venous distention. No carotid bruit. No lymph node enlargement. Facial contusion on the left side present. CARDIOVASCULAR: S1, S2 normal. No murmur. No thrills. RESPIRATION: Breath sounds diminished at the bases. A few scattered rhonchi and crackles. ABDOMEN: Soft, obese, nontender. LEGS: No edema. No swelling. NERVOUS SYSTEM: Higher functions as mentioned earlier. Moves all 4 limbs. No focal motor or sensory deficits. LYMPHATICS: No lymph nodes palpable in the neck, axillae or groin. LABS: Hemoglobin 9.7. Otherwise, BUN is 22, creatinine 0.74. A CK was 1080 yesterday. ASSESSMENT: 1. Acute renal failure from acute tubular necrosis with prerenal factors as well as multifactorial with acute rhabdomyolysis. 2. Blunt trauma from attacked by bull setting and multiple injuries as well as acute rhabdomyolysis. 3. Multiple fractures of the left ribs. 4. Atelectasis. 5. Left pleural effusion possibly hemothorax. 6. Facial contusion injuries on the left side. 7. Elevated plasma lactic acid present on admission, improved. 8. Elevated AST and ALT improving. 9. Diabetes mellitus type 2. 10.Increased WBC possibly reactive, improving. 11.Anemia, normocytic anemia of undetermined etiology. 12.History of bronchial asthma, chronic, intermittent. 13.Hypertension. 14.Hyperlipidemia. 15.History of depression. 16.Obesity with body mass index of 54. 17.FULL CODE. RECOMMENDATIONS AND DISCUSSION: Recommend to continue current medication, continue symptomatic treatment. Continue with incentive spirometry. The creatinine kinase and renal functions improve much. We will continue to monitor. Closely follow with surgery. The patient might be able to go home within 24 hours if the pain control is adequate. Closely monitor. Further recommendations to follow. MMODL / IJN: [id number] / CLINT
[2019-10-31] MEDS: DOCUSATE 100 MG CAP PO PRN (20:30)
[2019-10-31] MEDS: SODIUM CHLORIDE 0.9% 1,000 ML IV SCH (20:31)
[2019-10-31 20:47] LABS: Glucose,Whole Blood 132 mg/dL (75-99)
[2019-10-31] MEDS: TEMAZEPAM 15 MG CAP PO PRN (22:58)
[2019-11-01] MEDS: ACETAMINOPHEN TAB 325 MG TAB PO SCH ×2 (02:16→11:57)
[2019-11-01 06:56] LABS: Basophils % (A) 1 %; Eosinophils # (A) 0.3 k/uL (0-0.7); Eosinophils % (A) 3 %; HGB 9.4 gm/dL (13.0-17.5); Lymphocytes # (A) 1.2 k/uL (1.0-4.8); Lymphocytes % (A) 15 %; MCH 30.6 pg (25.0-35.0); MCHC 32.6 g/dL (31.0-37.0); Mean Platelet Volume 6.4; Monocytes # (A) 0.7 k/uL (0-1.0); Monocytes % (A) 8 %; Neutrophils # (A) 5.7 k/uL (1.3-7.7); Neutrophils % (A) 72 %; Platelet Count 305 k/uL (150-450); RBC 3.08 m/uL (4.30-5.90); RDW 14.4 % (11.5-15.5)
[2019-11-01 07:04] LABS: Glucose,Whole Blood 118 mg/dL (75-99)
[2019-11-01] MEDS: INSULIN ASPART (NovoLOG) 100 UNIT/ML VIAL SQ SCH ×2 (07:30→11:57)
[2019-11-01] MEDS: traMADol 50 MG TAB PO PRN (07:36)
[2019-11-01] MEDS: GLIMEPIRIDE 2 MG TAB PO SCH (07:37)
[2019-11-01] MEDS: TAMSULOSIN 0.4 MG CAP.ER.24H PO SCH (07:37)
[2019-11-01] MEDS: PANTOPRAZOLE 40 MG TABLET PO SCH (07:37)
[2019-11-01] MEDS: HEPARIN SODIUM,PORCINE 5,000 UNIT/ML 1 ML VIAL SQ SCH (07:37)
[2019-11-01] MEDS: LIDOCAINE 5% PATCH TOPICAL SCH (07:37)
[2019-11-01] MEDS: metFORMIN 500 MG TAB PO SCH (07:37)
[2019-11-01] MEDS: NYSTATIN 100,000 UNIT/ML SUSP 500,000 UNIT/5 ML CUP PO SCH ×2 (07:39→11:57)
[2019-11-01] MEDS: LISINOPRIL-HCTZ 20-25 MG 1 EACH TAB PO SCH (07:40)
[2019-11-01] MEDS: MAG HYDROX/AL HYDROX/SIMETH 30 ML, diphenhydrAMINE ELIXIR 75 MG, LIDOCAINE VISCOUS 30 ML PO SCH ×3 (07:40)
[2019-11-01] MEDS: VENLAFAXINE HCL 75 MG TAB PO SCH (07:41)
[2019-11-01] MEDS: ONDANSETRON 4 MG/2 ML VIAL IVP PRN (07:45)
--- NOTE | 2019-11-01 07:56 | XR ---
EXAMINATION TYPE: XR chest 1V portable DATE OF EXAM: 11/01/2019 COMPARISON: 10/29/2019 HISTORY: Hemothorax TECHNIQUE: Single frontal view of the chest is obtained. FINDINGS: The known multiple left-sided nondisplaced rib fractures are better visualized on CT. The small left layering hemothorax is unchanged with associated left basilar airspace disease. Linear rig ht basilar airspace disease has improved. No pneumothorax. Cardiomediastinal silhouette is stable. IMPRESSION: 1. Improved right basilar atelectasis. 2. Stable small left known hemothorax.
[2019-11-01 08:19] VITALS: BP 157/60; PULSE 77; RESP 17; TEMP 97.7
[2019-11-01] MEDS: SYMBICORT 160-4.5 MCG INHALER INHALATION SCH (08:29)
[2019-11-01] MEDS: IPRATROPIUM-ALBUTEROL 3 ML NEB INHALATION SCH ×2 (08:29→11:42)
[2019-11-01 11:54] LABS: Glucose,Whole Blood 126 mg/dL (75-99)
--- NOTE | 2019-11-01 12:32 | P.DS ---
Providers Date of admission: 10/25/19 09:37 Expected date of discharge: 11/01/19 Attending physician: Carmelita Matos Consults: 10/24/19 20:19 Consult Physician Urgent Consulting Provider: Chago Nathan Consult Reason/Comments: crush injury, medical management Do you want consulting provider notified?: Already Contacted 10/25/19 06:56 Consult to Anesthesia Routine Consulting Provider: Anesthesia,Services Consult Reason/Comments: trauma patient, possible epidural, possible rib blocks 10/25/19 09:16 Consult Physician Urgent Consulting Provider: Robert Dhaliwal Consult Reason/Comments: rhabomyolysis, ARF Do you want consulting provider notified?: Already Contacted 10/29/19 14:30 Consult Physician Routine Consulting Provider: Adri Martines Consult Reason/Comments: left pl effusion hemothorax? Do you want consulting provider notified?: Yes Primary care physician: Sonya Kaur Diagnosis(es) (1) Pain Current Visit: Yes Status: Acute (2) Crush injury Current Visit: Yes Status: Acute (3) Facial laceration Current Visit: Yes Status: Acute (4) Multiple fractures of ribs, left side, initial encounter for closed fracture Current Visit: Yes Status: Acute (5) Traumatic rhabdomyolysis Current Visit: Yes Status: Acute (6) Acute renal failure due to traumatic rhabdomyolysis Current Visit: Yes Status: Acute (7) Urinary retention Current Visit: Yes Status: Acute (8) Diabetes Current Visit: Yes Status: Acute (9) Oral candidiasis Current Visit: Yes Status: Acute Hospital Course: The patient presented after being attacked by a large bull as level 2 trauma. He was found to have several rib fractures along with multiple abrasions, contusions and muscle pain. He was admitted for pain control and monitoring for additional injuries. The patient developed urinary retention so a luis was inserted. Also, his CPK became elevated consistent with rhabodomuolysis. Nephrology was consulted. The BUN and creat elevated but quickly responded to medical therapy. Medicine consult was obtained due to diabetes and medical conditions. He was seen by physical therapy. He developed a pulmonary contusion/small hemothorax, which did not require any additional therapy. By 11-01-2019 he was cleared for discharge by medicine and pulmonary. Patient Condition at Discharge: Good Plan - Discharge Summary Discharge Rx Participant: No New Discharge Prescriptions: New traMADol HCL 1 - 2 tab PO Q6HR PRN #30 tablet PRN Reason: Pain Tamsulosin [Flomax] 0.4 mg PO PC-BRKFST #30 cap.er.24h Nystatin 100,000 Unit/ml Susp [Mycostatin Oral Susp] 500,000 unit PO QID #140 ml Discontinued Naproxen Sodium [Aleve] 440 mg PO DAILY No Action Venlafaxine HCl [Effexor] 75 mg PO TID metFORMIN HCL 1,000 mg PO BID Lisinopril-Hctz 20-25 mg [Zestoretic 20-25] 1 tab PO DAILY [facility]] [facility] Mometasone/Formoterol [Dulera 200 Mcg/5 Mcg Inhaler] 2 puff INHALATION BID Discharge Medication List Glimepiride [Amaryl] 2 mg PO AC-BRKFST 02/24/17 [History] Lisinopril-Hctz 20-25 mg [Zestoretic 20-25] 1 tab PO DAILY 02/24/17 [History] Venlafaxine HCl [Effexor] 75 mg PO TID 02/24/17 [History] metFORMIN HCL 1,000 mg PO BID 02/24/17 [History] Mometasone/Formoterol [Dulera 200 Mcg/5 Mcg Inhaler] 2 puff INHALATION BID 10/25/19 [History] Nystatin 100,000 Unit/ml Susp [Mycostatin Oral Susp] 500,000 unit PO QID #140 ml 10/29/19 [Rx] Tamsulosin [Flomax] 0.4 mg PO PC-BRKFST #30 cap.er.24h 10/29/19 [Rx] traMADol HCL 1 - 2 tab PO Q6HR PRN #30 tablet 10/29/19 [Rx] Follow up Appointment(s)/Referral(s): Sonya Gonzalez DO [Primary Care Provider] - 11/03/19 3:40 pm [facility], [NON-STAFF] - As Needed Activity/Diet/Wound Care/Special Instructions: [employer] [facility] - They will fax agreement form for glucometer that you must sign and return. Their phone # is [phone] if you have questions. Discharge Disposition: HOME SELF-CARE
--- NOTE | 2019-11-01 13:28 | P.PN ---
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 He sustained blunt head trauma and possibly lost consciousness, also sustained blunt force trauma to the thorax and abdomen. CT of the chest abdomen and pelvis revealed multiple left- sided nondisplaced rib fractures, and minimal subsegmental atelectasis in the le ft lung, no evidence of pneumothorax. Sigmoid diverticulosis, liver, spleen, stomach, pancreas, gallbladder were within normal limits, small cyst on the right kidney. Past medical history is positive for chronic bronchial asthma, unspecified, diabetes mellitus type 2, hypertension, hyperlipidemia, never smoker. Patient has been receiving Ultram, morphine and Dilaudid for pain control, he has been encouraged to use incentive spirometry. Patient sustained acute kidney injury secondary to ATN and rhabdomyolysis. This was worsened by use of NSAIDs, lisinopril and hydrochlorothiazide in addition to IV contrast dye. He has been receiving IV fluids, and his kidney function has actually returned to normal after several days of IV hydration, and his CPKs have been trending down, from 10,156 on admission down to 2800 on yesterday's labs. Patient's last chest x-ray on 10/26/2019 showed a new small left pleural effusion or fluid collection and associated left basilar atelectasis and/or infi ltrate. However the vital signs are stable, patient is on room air, and his pulse ox is 94-96%, her have been no repeat chest x-rays in the last few days, patient is still having generalized pain, but he is able to deep breathe and cough, and use his incentive spirometer. He continues on oral and IV pain medications for pain control, vital signs are stable, and we were asked to see the patient for a possibility of small left hemothorax related to multiple rib fractures On 10/30/2019 patient seen in follow-up on medical surgical floor. He is awake and alert, in no acute distress, may pulse ox is 94%, he is afebrile, hemodynamically stable, respirations are nonlabored, still has the diffuse pain related to multiple rib fractures, and multiple areas of bruising and hematomas due to his recent traumatic injury. Pain is reasonably controlled, he is on a combination of oral and IV medications, patient is tolerating ambulation, he is working on his incentive spirometer, repeat chest x-ray has been reviewed today showing small left pleural effusion and atelectasis in the left lung base, and a new infiltrate in the right lung base. Clinically patient is symptomatic, maintaining stable oxygenation, no fever or chills, today's white blood cell count is 8.0, hemoglobin is 9.2, CPKs are trending down, patient is on IV fluids at 50 ML per hour, nephrology is following, his renal function has completely recovered. On 10/31/2019 patient seen in follow-up on medical surgical floor. He is resting comfortably in bed, in no acute distress, he states his pain is better controlled, and patient seems to be less nauseous. He is pulling 1700 on his incentive spirometer, lung sounds are diminished at the left Benjamni, no rhonchi, no wheezing. Remains on room air pulse ox of 95%, afebrile. Continues on DVT prophylaxis, patient has actually been ambulating to the bathroom, tolerating activity well. On 11/01/2019 patient seen in follow-up on medical surgical floor. He is sitting up in the chair, he is in no acute distress, his pain is reasonably controlled, patient has been working on his incentive spirometer, achieving 1700 on the today. Lung sounds are diminished breath sounds at the left base, patient is 94% on room air, vital signs are stable, no fever or chills, tolerating ambulation, he is anticipated to be discharged home today. Objective - Vital Signs Vital signs: Vital Signs Temp 97.7 F 11/01/19 07:00 Pulse 77 11/01/19 07:00 Resp 17 11/01/19 07:40 BP 157/60 11/01/19 07:00 Pulse Ox 94 L 11/01/19 07:00 Intake & Output 10/31/19 11/01/19 11/01/19 18:59 06:59 18:59 Intake Total 640 Balance 640 Intake: Intake, IV Titration 50 Amount Sodium Chloride 0.9% 1, 50 000 ml @ 50 mls/hr IV . Q20H [facility] Rx#:[id number] Oral 590 Other: Voiding Method Toilet Toilet Toilet Urinal Urinal Urinal # Voids 3 2 - Exam GENERAL EXAM: Alert, very pleasant, 69-year-old white male, with extensive bruising involving his left periorbital area, and bruising involving his bilateral posterior lower torso, hip area, bilateral inner thighs, posterior knee area, and posterior lower leg areas, comfortable in no apparent distress. HEAD: Normocephalic/atraumatic. EYES: Normal reaction of pupils, equal size. Conjunctiva pink, sclera white. NOSE: Clear with pink turbinates. THROAT: No erythema or exudates. NECK: No masses, no JVD, no thyroid enlargement, no adenopathy. CHEST: No chest wall deformity. Symmetrical expansion. LUNGS: Diminished breath sounds over left lower lobe, with no crackles, wheeze, rhonchi or dullness. CVS: Regular rate and rhythm, normal S1 and S2, no gallops, no murmurs, no rubs ABDOMEN: Soft, nontender. No hepatosplenomegaly, normal bowel sounds, no guarding or rigidity. EXTREMITIES: No clubbing, generalized nonpitting edema, increased nonpitting lower extremity edema, no cyanosis, 2+ pulses and upper and lower extremities. MUSCULOSKELETAL: Muscle strength and tone normal. SPINE: No scoliosis or deformity SKIN: Diffuse large areas of ecchymosis involving bilateral posterior lower torso, hip area, bilateral inner thighs, posterior or any areas posterior lower leg areas CENTRAL NERVOUS SYSTEM: Alert and oriented -3. No focal deficits, tone is normal in all 4 extremities. PSYCHIATRIC: Alert and oriented -3. Appropriate affect. Intact judgment and insight. - Labs CBC & Chem 7: 11/01/19 06:25 10/31/19 06:51 Labs: Abnormal Lab Results - Last 24 Hours (Table) 10/31/19 10/31/19 11/01/19 Range/Units 16:23 20:31 06:25 RBC 3.08 L (4.30-5.90) m/uL Hgb 9.4 L (13.0-17.5) gm/dL Hct 29.0 L (39.0-53.0) % POC Glucose (mg/dL) 168 H 132 H (75-99) mg/dL 11/01/19 11/01/19 Range/Units 06:52 11:41 RBC (4.30-5.90) m/uL Hgb (13.0-17.5) gm/dL Hct (39.0-53.0) % POC Glucose (mg/dL) 118 H 126 H (75-99) mg/dL Microbiology - Last 24 Hours (Table) 10/25/19 18:04 Blood Culture - Final Blood No Growth after 144 hours Assessment and Plan Plan: Assessment: #1. Shortness of breath and left chest pain related to traumatic injury, and multiple rib fractures in the left chest following an attack by a bull #2. Small left pleural effusion, the possibility of hemothorax on the left, related to multiple rib fractures #3. Acute blood loss anemia, likely related to multiple areas of ecchymosis and hematomas following traumatic injury #4. Leukocytosis, reactive, improved #5. Acute kidney injury related to ATN, and rhabdomyolysis, recovered #6. Rhabdomyolysis secondary to trauma, improving #7. Hypertension #8. Diabetes mellitus type 2 Plan: Patient remains stable from pulmonary perspective, maintaining good oxygenation on room air, continue encouraging deep breathing and coughing, no plans for thoracentesis, his pain is controlled, he is anticipated to be discharged home today. I performed a history & physical examination of the patient and discussed their management with my nurse practitioner, Yaquelin Charles. I reviewed the nurse practitioner's note and agree with the documented findings and plan of care. Lung sounds are positive for diminished breath sounds on left base. The findings and the impression was discussed with the patient. I attest to the documentation by the nurse practitioner. Time with Patient: Less than 30
--- NOTE | 2019-11-01 13:38 | P.PN ---
Subjective This is a pleasant 69 years old male with past medical history of asthma, diabetes mellitus, hyperlipidemia, hypertension. Patient Presents on 10/24/2019 because of blunt trauma secondary to bullous attack with resultant left orbit fracture at multiple sites, complicated with left pleural effusion with possible hemothorax. On admission patient also had acute kidney injury with rhabdomyolysis, he is been treated with IV fluids and followed by hand grinder with gradual improvement. Patient is been followed closely by also pulmonary/critical care team. Today patient is doing well, he denies chest pain or dyspnea, no coughing, no abdominal pain, no diarrhea, no nausea vomiting. Patient denies urinary complaints. He told me he was able to work with no problems. Vitas looks stable. Labs showing stable hemoglobin at 9.4. Sugars been controlled. Creatinine is normal at 0.7. Liver enzymes mildly elevated. Objective - Vital Signs Vital signs: Vital Signs Temp 97.7 F 11/01/19 07:00 Pulse 77 11/01/19 07:00 Resp 17 11/01/19 07:40 BP 157/60 11/01/19 07:00 Pulse Ox 94 L 11/01/19 07:00 Intake & Output 10/31/19 11/01/19 11/01/19 18:59 06:59 18:59 Intake Total 640 Balance 640 Intake: Intake, IV Titration 50 Amount Sodium Chloride 0.9% 1, 50 000 ml @ 50 mls/hr IV . Q20H [facility] Rx#:[id number] Oral 590 Other: Voiding Method Toilet Toilet Toilet Urinal Urinal Urinal # Voids 3 2 - Exam GENERAL: The patient is alert and oriented x3, not in any acute distress. Well developed, well nourished. -HEENT: Pupils are round and equally reacting to light. EOMI. No scleral icterus. No conjunctival pallor. Normocephalic, atraumatic. No pharyngeal erythema. No thyromegaly. Mild ecchymosis around left eye CARDIOVASCULAR: S1 and S2 present. No murmurs, rubs, or gallops. -PULMONARY: Chest is clear to auscultation, no wheezing or crackles. Mild left chest wall tenderness ABDOMEN: Soft, nontender, nondistended, normoactive bowel sounds. No palpable organomegaly. MUSCULOSKELETAL: No joint swelling or deformity. EXTREMITIES: No cyanosis, clubbing, or pedal edema. NEUROLOGICAL: Gross neurological examination did not reveal any focal deficits. SKIN: No rashes. no petechiae. - Labs CBC & Chem 7: 11/01/19 06:25 10/31/19 06:51 Labs: Abnormal Lab Results - Last 24 Hours (Table) 10/31/19 10/31/19 11/01/19 Range/Units 16:23 20:31 06:25 RBC 3.08 L (4.30-5.90) m/uL Hgb 9.4 L (13.0-17.5) gm/dL Hct 29.0 L (39.0-53.0) % POC Glucose (mg/dL) 168 H 132 H (75-99) mg/dL 11/01/19 11/01/19 Range/Units 06:52 11:41 RBC (4.30-5.90) m/uL Hgb (13.0-17.5) gm/dL Hct (39.0-53.0) % POC Glucose (mg/dL) 118 H 126 H (75-99) mg/dL Microbiology - Last 24 Hours (Table) 10/25/19 18:04 Blood Culture - Final Blood No Growth after 144 hours Assessment and Plan Assessment: Blunt trauma secondary tubal attack Multiple left rib fracture with resultant left pleural effusion versus hemothorax, no plans for thoracocentesis by roller hand Acute kidney injury, present on presentation. She resolved rhabdomyolysis, treated with IV fluids and improving Diabetes mellitus Hypertension Plan: This is a pleasant 69 years old male who presents with blunt trauma and left upper fracture, his acute kidney injury and dropped as well as his improvement. Patient was treated with normal saline. Patient was eager to be discharged home today Surgical team are planning for discharge and the patient DVT prophylaxis: Subcutaneous heparin GI Prophylaxis: Pepcid PT/OT: Recommended home health care which is ordered We recommend patient follow up with his primary care doctor within 1 week, patient was instructed with the same and he agrees to call and make his own appointment Thank you for consulting us. please feel free to contact us for any further questions or clarification
[2019-11-01] MEDS: BISACODYL 5 MG TABLET.DR PO PRN (14:19)
== END 2019-11-01 15:17 | disposition home or self-care (01) | DRG 963 ==
LOC: EC 17:40 → 4SSUR 20:21 → OBSVTOIN 10-25 09:37
PROVIDERS: ADMIT Surgery; ATTEND Surgery
PROC: B246ZZZ Ultrasonography of Right and Left Heart (ICD-10-PCS; principal; 2019-10-24)
DX: S22.42XA Multiple fractures of ribs, left side, initial encounter for closed fracture (principal); S27.1XXA Traumatic hemothorax, initial encounter; N17.0 Acute kidney failure with tubular necrosis; T79.6XXA Traumatic ischemia of muscle, initial encounter; S27.329A Contusion of lung, unspecified, initial encounter; B37.0 Candidal stomatitis; D62 Acute posthemorrhagic anemia; J90 Pleural effusion, not elsewhere classified; J98.11 Atelectasis; E87.2 Acidosis; W55.22XA Struck by cow, initial encounter; S01.81XA Laceration without foreign body of other part of head, initial encounter; N28.1 Cyst of kidney, acquired; R04.0 Epistaxis; D72.829 Elevated white blood cell count, unspecified; E11.9 Type 2 diabetes mellitus without complications; E66.9 Obesity, unspecified; Z68.34 Body mass index [BMI] 34.0-34.9, adult; E78.5 Hyperlipidemia, unspecified; E87.70 Fluid overload, unspecified; F32.9 Major depressive disorder, single episode, unspecified; I10 Essential (primary) hypertension; J45.20 Mild intermittent asthma, uncomplicated; S05.12XA Contusion of eyeball and orbital tissues, left eye, initial encounter; S05.11XA Contusion of eyeball and orbital tissues, right eye, initial encounter; S70.12XA Contusion of left thigh, initial encounter; S70.11XA Contusion of right thigh, initial encounter; S80.00XA Contusion of unspecified knee, initial encounter; S70.00XA Contusion of unspecified hip, initial encounter; T39.395A Adverse effect of other nonsteroidal anti-inflammatory drugs [NSAID], initial encounter; T46.6X5A Adverse effect of antihyperlipidemic and antiarteriosclerotic drugs, initial encounter; T50.8X5A Adverse effect of diagnostic agents, initial encounter; R33.9 Retention of urine, unspecified; K57.30 Diverticulosis of large intestine without perforation or abscess without bleeding; Z79.1 Long term (current) use of non-steroidal anti-inflammatories (NSAID); Z79.84 Long term (current) use of oral hypoglycemic drugs; Z79.899 Other long term (current) drug therapy; Z79.51 Long term (current) use of inhaled steroids; Z80.9 Family history of malignant neoplasm, unspecified
CPT/HCPCS: 12016; 36415; 70450; 70486; 71045; 71046; 71260; 72125; 72129; 72132; 72170; 74177; 80048; 80053; 80306; 80320; 81001; 82150; 82550; 82553; 83605; 83690; 83874; 84484; 85025; 85027; 85610; 85730; 86850; 86900; 86901; 87040; 87086; 87502; 90471; 90715; 94640; 94760; 96361; 96365; 96375; 96376; 99291

== ENCOUNTER 2019-11-30 12:31 | Emergency (ER) | payer MEDICARE ==
[2019-11-30 13:28] VITALS: TEMP 98
--- NOTE | 2019-11-30 13:28 | ED ---
General Adult HPI - General Source: patient, RN notes reviewed Mode of arrival: ambulatory Limitations: no limitations <Thad Moe - Last Filed: 11/30/19 13:25> <Mallory Salgado - Last Filed: 12/01/19 17:59> - General Stated complaint: hematoma/leg swelling Time Seen by Provider: 11/30/19 13:26 - History of Present Illness Initial comments: This is a 69 year old male presents emergency Department with chief complaint of increasing right leg pain, swelling. Patient was diagnosed with hematoma. Patient states he had an injury October 24 in which he was stepped on by a pole. Patient was admitted to the hospital here. Patient did see Dr. Young orthopedics associate and had MRI in the third which showed increasing hematoma in which they're concerned about possible vessel injury. Patient was referred to Dr. Bailey but does not have an appointment until December 08 2019. Patient states the pain is getting worse, increase in swelling is concerned that he cannot wait. (Thad Moe) Patient is a 69-year-old male presenting to emergency Department with complaints of a right leg hematoma. He had an injury in early October which he was trampled on by a bull. He has been seeing Dr. Young and did have a recent MRI which showed the hematoma. Patient states he does have an appointment with [facility] ular surgery, Dr. Bailey next week however the pain and swelling has been increasing so he wanted to be seen today. He denies any recent fever, chills, nausea, vomiting. He denies any new trauma or injuries. He has no other complaints at this time. Upon arrival to the ER, his vital signs are stable. (Mallory Salgado) - Related Data Home Medications Medication Instructions Recorded Confirmed Glimepiride [Amaryl] 2 mg PO AC-BRKFST 02/24/17 10/24/19 Lisinopril-Hctz 20-25 mg 1 tab PO DAILY 02/24/17 10/24/19 [Zestoretic 20-25] Venlafaxine HCl [Effexor] 75 mg PO TID 02/24/17 10/24/19 metFORMIN HCL 1,000 mg PO BID 02/24/17 10/24/19 Mometasone/Formoterol [Dulera 200 2 puff INHALATION BID 10/25/19 10/25/19 Mcg/5 Mcg Inhaler] Previous Rx's Medication Instructions Recorded Nystatin 100,000 Unit/ml Susp 500,000 unit PO QID #140 ml 10/29/19 [Mycostatin Oral Susp] Tamsulosin [Flomax] 0.4 mg PO PC-BRKFST #30 cap.er.24h 10/29/19 traMADol HCL 1 - 2 tab PO Q6HR PRN #30 tablet 10/29/19 Allergies Allergy/AdvReac Type Severity Reaction Status Date / Time hay Allergy Itching Uncoded 11/30/19 13:28 Review of Systems ROS Other: All systems not noted in ROS Statement are negative. <Thad Moe - Last Filed: 11/30/19 13:25> ROS Other: All systems not noted in ROS Statement are negative. <Mallory Salgado - Last Filed: 12/01/19 17:59> ROS Statement: Those systems with pertinent positive or pertinent negative responses have been documented in the HPI. Past Medical History Past Medical History: Asthma, Diabetes Mellitus, Hyperlipidemia, Hypertension History of Any Multi-Drug Resistant Organisms: None Reported Additional Past Surgical History / Comment(s): colonoscopy Past Anesthesia/Blood Transfusion Reactions: No Reported Reaction Past Psychological History: Depression Smoking Status: Never smoker Past Alcohol Use History: None Reported Past Drug Use History: None Reported - Past Family History Father Family Medical History: Cancer <Thad Moe - Last Filed: 11/30/19 13:25> General Exam <Mallory Salgado - Last Filed: 12/01/19 17:59> - General Exam Comments Initial Comments: GENERAL: Well-appearing, well-nourished and in no acute distress. HEAD: Atraumatic, normocephalic. EYES: Pupils equal round and reactive to light, extraocular movements intact, sclera anicteric, conjunctiva are normal. ENT: Moist mucous membranes. NECK: Normal range of motion, supple without lymphadenopathy or JVD. LUNGS: Breath sounds clear to auscultation bilaterally and equal. No wheezes rales or rhonchi. HEART: Regular rate and rhythm without murmurs, rubs or gallops. ABDOMEN: Soft, nontender, normoactive bowel sounds. No guarding, no rebound. No masses appreciated. : Deferred EXTREMITIES: Patient has a large hematoma that proximal aspect of the right femur that measures at least 20 cm x 10 cm. There is mild pressure with palpation however no severe pain,overlying erythema or bruising. Patient has an additional hematoma just distal to the first hematoma, more on the medial aspect of the right femur that measures approximately 10 x 10 cm. Patient has full right hip and right knee range of motion. He is neurovascular intact. Sensation is equal and bilateral. NEUROLOGICAL: Normal speech, normal gait. PSYCH: Normal mood, normal affect. SKIN: Warm, Dry, normal turgor, no rashes. (Mallory Salgado) Course Vital Signs 11/30/19 11/30/19 11/30/19 13:26 14:28 15:00 Temperature 98 F Pulse Rate 90 88 85 Respiratory 16 18 18 Rate Blood Pressure 121/70 118/65 125/72 O2 Sat by Pulse 97 97 97 Oximetry 11/30/19 11/30/19 11/30/19 16:00 17:00 17:47 Temperature Pulse Rate 80 82 Respiratory 18 18 20 Rate Blood Pressure 115/69 118/71 O2 Sat by Pulse 97 97 Oximetry Medical Decision Making - Lab Data Result diagrams: 11/30/19 15:28 11/30/19 15:28 <Mallory Salgado - Last Filed: 12/01/19 17:59> - Medical Decision Making Patient is a 69-year-old male presenting with 2 large hematomas on his right proximal femur him an injury he sustained approximately one month ago. Patient has been seeing Dr. Young at 08. Patient does have an appointment with vascular surgery, Dr. Bailey next week. CT with contrast was obtained and shows large fluid collections in the subcutaneous tissues of the anterior medial thigh that could relate to chronic hematoma or seroma. No other acute findings. I discussed these findings with the patient. Patient needs to continue to follow- up with Dr. Bailey. I discussed using compression wrappings or compression shorts to help with swelling. 2 compression wrappings were applied to the right upper leg. He is in agreement with this plan of care. Case discussed with Dr. Baptiste. Return parameters were discussed with the patient he verbalizes understanding. (Mallory Salgado) - Lab Data Lab Results 11/30/19 11/30/19 Range/Units 15:28 15:28 WBC 10.1 (3.8-10.6) k/uL RBC 4.36 (4.30-5.90) m/uL Hgb 13.5 (13.0-17.5) gm/dL Hct 40.6 (39.0-53.0) % MCV 93.0 (80.0-100.0) fL MCH 31.0 (25.0-35.0) pg MCHC 33.4 (31.0-37.0) g/dL RDW 13.4 (11.5-15.5) % Plt Count 344 (150-450) k/uL Neutrophils % 72 % Lymphocytes % 16 % Monocytes % 7 % Eosinophils % 2 % Basophils % 2 % Neutrophils # 7.3 (1.3-7.7) k/uL Lymphocytes # 1.7 (1.0-4.8) k/uL Monocytes # 0.8 (0-1.0) k/uL Eosinophils # 0.2 (0-0.7) k/uL Basophils # 0.2 (0-0.2) k/uL Sodium 141 (137-145) mmol/L Potassium 4.6 (3.5-5.1) mmol/L Chloride 102 (98-107) mmol/L Carbon Dioxide 28 (22-30) mmol/L Anion Gap 11 mmol/L BUN 26 H (9-20) mg/dL Creatinine 0.67 (0.66-1.25) mg/dL Est GFR (CKD-EPI)AfAm >90 (>60 ml/min/1.73 sqM) Est GFR (CKD-EPI)NonAf >90 (>60 ml/min/1.73 sqM) Glucose 69 L (74-99) mg/dL Calcium 10.3 H (8.4-10.2) mg/dL Total Bilirubin 0.6 (0.2-1.3) mg/dL AST 32 (17-59) U/L ALT 30 (4-49) U/L Alkaline Phosphatase 75 (38-126) U/L Total Protein 7.8 (6.3-8.2) g/dL Albumin 4.5 (3.5-5.0) g/dL Disposition <Thad Moe - Last Filed: 11/30/19 13:25> Is patient prescribed a controlled substance at d/c from ED?: No <Mallory Salgado - Last Filed: 12/01/19 17:59> Clinical Impression: Hematoma of right lower extremity Disposition: HOME SELF-CARE Condition: Stable Instructions (If sedation given, give patient instructions): Hematoma (ED) Additional Instructions: Please return to the Emergency Department if symptoms worsen or any other concerns. Use compression wraps or impression garment on the right extremity. Follow-up with Dr. Bailey next week as discussed. Referrals: Sonya Gonzalez DO [Primary Care Provider] - 1-2 days Barbara Bailey DO [STAFF PHYSICIAN] - 1-2 days
[2019-11-30 15:35] LABS: Basophils # (A) 0.2 k/uL (0-0.2); Basophils % (A) 2 %; Eosinophils # (A) 0.2 k/uL (0-0.7); Eosinophils % (A) 2 %; HCT 40.6 % (39.0-53.0); HGB 13.5 gm/dL (13.0-17.5); Lymphocytes # (A) 1.7 k/uL (1.0-4.8); Lymphocytes % (A) 16 %; MCHC 33.4 g/dL (31.0-37.0); Mean Platelet Volume 7.7; Monocytes # (A) 0.8 k/uL (0-1.0); Monocytes % (A) 7 %; Neutrophils # (A) 7.3 k/uL (1.3-7.7); Neutrophils % (A) 72 %; Platelet Count 344 k/uL (150-450); RBC 4.36 m/uL (4.30-5.90); RDW 13.4 % (11.5-15.5); WBC 10.1 k/uL (3.8-10.6)
[2019-11-30 15:48] LABS: ALT 30 U/L (4-49); AST 32 U/L (17-59); African American GFR (CKD) >90 (>60 ml/min/1.73 sqM); Albumin 4.5 g/dL (3.5-5.0); Alkaline Phosphatase 75 U/L (38-126); Anion Gap 11 mmol/L; Blood Urea Nitrogen 26 mg/dL (9-20); Calcium 10.3 mg/dL (8.4-10.2); Carbon Dioxide 28 mmol/L (22-30); Chloride 102 mmol/L (98-107); Glucose 69 mg/dL (74-99); Non-African American GFR(CKD) >90 (>60 ml/min/1.73 sqM); Potassium 4.6 mmol/L (3.5-5.1); Sodium 141 mmol/L (137-145); Total Bilirubin 0.6 mg/dL (0.2-1.3); Total Protein 7.8 g/dL (6.3-8.2)
--- NOTE | 2019-11-30 16:50 | CT ---
EXAMINATION TYPE: CT lower extremity RT w con DATE OF EXAM: 11/30/2019 COMPARISON: HISTORY: Right sided Leg swelling without injury or trauma. CT DLP: 851.2 mGycm Automated exposure control for dose reduction was used. CONTRAST: Performed with IV Contrast, patient injected with 100 mL of Isovue 300. Multiple axial sections were obtained from the upper iliac bone to the proximal tibia and fibula with intravenous contrast. There is a 6 x 16 X 18 cm subcutaneous fluid collection over the anterior mid thigh. There is a 13 x 7 cm subcutaneous fluid collection on the medial anterior aspect of the distal thigh. There is no evidence of a fracture. The hip joint appears intact. Acetabulum is intact. Right sacroi liac joint appears normal. There is no free fluid in the pelvis. Bladder distends smoothly. There is no evidence of pelvic mass. There is minimal subcutaneous edema over the lateral thigh. IMPRESSION: Large fluid collections in the subcutaneous tissues of the anterior and medial thigh could relate to chronic hematoma or seroma. The density is 13. No fracture seen. Mild osteoarthritis in the knee cheyenne chappell
[2019-11-30 17:09] VITALS: BP 118/71; PULSE 82
[2019-11-30 17:50] VITALS: RESP 20
== END 2019-11-30 17:50 | disposition home or self-care (01) ==
LOC: EC 12:31
DX: S80.11XA Contusion of right lower leg, initial encounter (principal); J45.909 Unspecified asthma, uncomplicated; E11.9 Type 2 diabetes mellitus without complications; I10 Essential (primary) hypertension; F32.9 Major depressive disorder, single episode, unspecified; Z79.84 Long term (current) use of oral hypoglycemic drugs; Z79.51 Long term (current) use of inhaled steroids; Z79.899 Other long term (current) drug therapy; Z91.048 Other nonmedicinal substance allergy status
CPT/HCPCS: 36415; 80053; 85025; 73701; 99284; Q9967

== ENCOUNTER → 2020-06-27 | Outpatient (CLI) | payer MEDICARE ==
--- NOTE | 2020-06-28 05:06 | MR ---
EXAMINATION TYPE: MR shoulder LT wo con DATE OF EXAM: 06/27/2020 COMPARISON: HISTORY: Left arm pain, sprain, fall Multiplanar multiecho imaging of the left shoulder was performed with no contrast. FINDINGS: There is obliteration of the subacromial joint space. There is spurring on the humeral head. There is retraction of the supraspinatus tendon. There is moderate shoulder joint effusion. The glenoid herrrea appear intact. There are degenerative cysts in the greater tuberosity humerus. There is irregular wavy appearance of the subscapularis tendon consistent with at least a partial tea r. The biceps tendon is poorly defined. I see no focal bone destruction. IMPRESSION: Large rotator cuff tear with retraction of the supraspinatus tendon. There is at least a partial tear of the subscapularis tendon. Degenerative cysts in the greater tuberosity of the humerus. 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 Severe subacromial joint space narrowing and impingement. Moderate arthri tic change in the AC joint.
== END | disposition home or self-care (01) ==
LOC: RADMRIMAIN 14:58
PROVIDERS: ATTEND Family Medicine
DX: M75.102 Unspecified rotator cuff tear or rupture of left shoulder, not specified as traumatic (principal); M19.012 Primary osteoarthritis, left shoulder; S46.812S Strain of other muscles, fascia and tendons at shoulder and upper arm level, left arm, sequela; M25.812 Other specified joint disorders, left shoulder

== ENCOUNTER → 2021-01-30 | Outpatient (CLI) | payer MEDICARE ==
--- NOTE | 2021-01-30 10:14 | US ---
EXAMINATION TYPE: US extremity nonvasc mass RT DATE OF EXAM: 01/30/2021 COMPARISON: CT right lower extremity November 30, 2019 CLINICAL HISTORY: [id number] Contusion of right thigh, initial encount. Lump right thigh hematoma got s tepped on by a bull 14 months ago. Large pocket of fluid visualized estimated at least 8.4 x 3.5 cm. Persistent deep subcutaneous irregular fluid collection with internal septa. IMPRESSION: Persistent moderate to large size fluid collection suspected hematoma because of size di fficult to accurately measure in entirety on ultrasound. Likely has decreased from CT 14 months ago. Advise contrast enhanced CT to further evaluate. Advise surgical consultation to consider evacuation due to persistent fairly large size hematoma.
== END ==
LOC: RADUSWWP 09:05
PROVIDERS: ATTEND Surgery
DX: S70.11XA Contusion of right thigh, initial encounter (principal)

== ENCOUNTER → 2021-02-01 | Day surgery (SDC) | payer MEDICARE ==
[2021-01-26 13:59] VITALS: BMI 30.1
[~2021-02-01] MED LIST changes: +DEXAMETHASONE SOD PHOSPHATE 4 MG/ML 1 ML VIAL IV ONE; +LACTATED RINGERS 1,000 ML IV SCH; +LIDOCAINE 1% (10MG/ML) FOR IV START INTRADERMA PRN; -LIDOCAINE 1% 20 ML VIAL (10MG/ML) FOR IV START INTRADERMA PRN; +ONDANSETRON 4 MG/2 ML VIAL IVP ONE
== END ==
LOC: OR 11:54
PROVIDERS: ATTEND Surgery
DX: S70.11XA Contusion of right thigh, initial encounter (principal); Z53.9 Procedure and treatment not carried out, unspecified reason

== ENCOUNTER 2021-02-10 16:04 | Inpatient (IN) | payer MEDICARE ==
--- NOTE | 2021-02-10 16:47 | ED ---
Weakness HPI - General Source: patient, RN notes reviewed Mode of arrival: ambulatory Limitations: no limitations - History of Present Illness MD Complaint: generalized weakness -: days(s) (6) Location: generalized Severity: severe Severity scale (1-10): 5 Consistency: constant Improves with: rest Worsens with: movement, exertion Context: recent illness (dx covid on 02/05, vaccine Chandrakant and Chandrakant on 01/22) Associated Symptoms: fever/chills, loss of appetite <Wilfredo Ochoa - Last Filed: 02/10/21 18:30> <Sundeep Baptiste - Last Filed: 02/10/21 19:28> - General Chief complaint: Weakness Stated complaint: COVID+/increased weakness Time Seen by Provider: 02/10/21 16:27 - History of Present Illness Initial comments: 70-year-old white male patient presents to the emergency room with 6 days of generalized weakness. Patient with a history of asthma, diabetes, high cholesterol, and hypertension. Patient states he lives with his both receiv ed the Chandrakant & Chandrakant covid vaccine at the [facility] department on 01/22. Patient states has been not feeling well and seemed primary doctor Radha on Friday and was told "covid positive" on 02/05. Patient states for the past week has not been taking his medications as prescribed. Patient states fever as high as 103, has been taking Tylenol and Motrin alternating with last dose 3 hours ago but ca nnot recall Tylenol or Motrin was taken. Patient denies chest pain, states has a productive cough "musky" in color. Patient denies hemoptysis. Patient states decrease in appetite for past 6 days. Patient states feels increasingly weak and that's why he came in today. Patient states also complaining of cough but does not have a fever or weakness. Currently blood pressure is 119/65, heart rate 75, temperature 98.4, respiratory rate of 18, oxygen saturation 94% on room air. (Wilfredo Ochoa) - Related Data Home Medications Medication Instructions Recorded Confirmed Glimepiride [Amaryl] 2 mg PO AC-BRKFST 02/24/17 01/26/21 Lisinopril-Hctz 20-25 mg 1 tab PO DAILY 02/24/17 01/26/21 [Zestoretic 20-25] Venlafaxine HCl [Effexor] 75 mg PO BID 02/24/17 01/26/21 metFORMIN HCL 1,000 mg PO DAILY 02/24/17 01/26/21 Mometasone/Formoterol [Dulera 200 2 puff INHALATION BID 10/25/19 01/26/21 Mcg/5 Mcg Inhaler] Atorvastatin (Unk.Dose) 1 tab PO DAILY 01/26/21 01/26/21 Allergies Allergy/AdvReac Type Severity Reaction Status Date / Time hay Allergy Itching Uncoded 01/26/21 13:43 Review of Systems ROS Other: All systems not noted in ROS Statement are negative. <Wilfredo Ochoa - Last Filed: 02/10/21 18:30> ROS Other: All systems not noted in ROS Statement are negative. <Sundeep Baptiste - Last Filed: 02/10/21 19:28> ROS Statement: Those systems with pertinent positive or pertinent negative responses have been documented in the HPI. Past Medical History Past Medical History: Asthma, Diabetes Mellitus, Hyperlipidemia, Hypertension Additional Past Medical History / Comment(s): rt thigh hemotoma History of Any Multi-Drug Resistant Organisms: None Reported Past Surgical History: Orthopedic Surgery Additional Past Surgical History / Comment(s): colonoscopy, lt rotator cuff repair continues in PT Past Anesthesia/Blood Transfusion Reactions: No Reported Reaction Past Psychological History: Depression Smoking Status: Never smoker Past Alcohol Use History: None Reported Past Drug Use History: None Reported - Past Family History Father Family Medical History: Cancer <Wilfredo Ochoa - Last Filed: 02/10/21 18:30> General Exam Limitations: no limitations General appearance: alert, in no apparent distress Head exam: Present: atraumatic, normocephalic, normal inspection Eye exam: Present: normal appearance (glasses), PERRL, EOMI. Absent: scleral icterus, conjunctival injection, periorbital swelling ENT exam: Present: normal exam, mucous membranes moist Neck exam: Present: normal inspection, full ROM. Absent: tenderness, meningismus, lymphadenopathy Respiratory exam: Present: normal lung sounds bilaterally. Absent: respiratory distress, wheezes, rales, rhonchi, stridor Cardiovascular Exam: Present: regular rate, normal rhythm, normal heart sounds. Absent: systolic murmur, diastolic murmur, rubs, gallop, clicks, JVD GI/Abdominal exam: Present: soft, normal bowel sounds. Absent: distended, tenderness, guarding, rebound, rigid Extremities exam: Present: normal inspection, full ROM, normal capillary refill. Absent: tenderness, pedal edema, joint swelling, calf tenderness Neurological exam: Present: alert, oriented X3 Psychiatric exam: Present: normal affect, normal mood Skin exam: Present: warm, dry, intact, normal color. Absent: rash, cyanosis, diaphoretic <Wilfredo Ochoa - Last Filed: 02/10/21 18:30> Course Vital Signs 02/10/21 16:20 Temperature 98.4 F Pulse Rate 75 Respiratory 18 Rate Blood Pressure 119/65 O2 Sat by Pulse 94 L Oximetry EKG Findings - EKG Results: EKG: sinus rhythm ( Normal sinus rhythm, Ventricular rate of 68, VT interval 0.12, QRS 0.10, QTc 442 ms), normal axis, normal QRS EKG shows: sinus rhythm <Wilfredo Ochoa - Last Filed: 02/10/21 18:30> Medical Decision Making - Lab Data Result diagrams: 02/10/21 17:10 02/10/21 17:10 <Wilfredo Ochoa - Last Filed: 02/10/21 18:30> - Lab Data Result diagrams: 02/10/21 17:10 02/10/21 17:10 <Sundeep Baptiste - Last Filed: 02/10/21 19:28> - Medical Decision Making Case discussed with Dr. Baptiste. Chest x-ray shows a new right upper lobe pneumonia, d-dimer 1.50, WBC count of 7.2, CRP is 56.8, LDH 885. BUN of 26, creatinine 0.85. CTA performed and shows (Wilfredo Ochoa) CT performed given the high d-dimer, this is consistent with a significant coronavirus pneumonia. No pulmonary embolism. Patient does desaturate even with speaking. He will be admitted to internal medicine with pulmonology on consult. (Sundeep Baptiste) - Lab Data Lab Results 02/10/21 02/10/21 02/10/21 Range/Units 17:10 17:10 17:10 WBC 7.2 (3.8-10.6) k/uL RBC 4.88 (4.30-5.90) m/uL Hgb 14.6 (13.0-17.5) gm/dL Hct 44.0 (39.0-53.0) % MCV 90.1 (80.0-100.0) fL MCH 29.9 (25.0-35.0) pg MCHC 33.2 (31.0-37.0) g/dL RDW 13.4 (11.5-15.5) % Plt Count 189 (150-450) k/uL MPV 7.8 Neutrophils % 81 % Lymphocytes % 13 % Monocytes % 5 % Eosinophils % 0 % Basophils % 0 % Neutrophils # 5.8 (1.3-7.7) k/uL Lymphocytes # 0.9 L (1.0-4.8) k/uL Monocytes # 0.4 (0-1.0) k/uL Eosinophils # 0.0 (0-0.7) k/uL Basophils # 0.0 (0-0.2) k/uL PT 11.0 (9.0-12.0) sec INR 1.0 (<1.2) APTT 24.7 (22.0-30.0) sec D-Dimer 1.50 H (<0.60) mg/L FEU Sodium 133 L (137-145) mmol/L Potassium 3.7 (3.5-5.1) mmol/L Chloride 93 L (98-107) mmol/L Carbon Dioxide 30 (22-30) mmol/L Anion Gap 10 mmol/L BUN 26 H (9-20) mg/dL Creatinine 0.85 (0.66-1.25) mg/dL Est GFR (CKD-EPI)AfAm >90 (>60 ml/min/1.73 sqM) Est GFR (CKD-EPI)NonAf 89 (>60 ml/min/1.73 sqM) Glucose 218 H (74-99) mg/dL Plasma Lactic Acid Nathanael (0.7-2.0) mmol/L Calcium 8.7 (8.4-10.2) mg/dL Magnesium 2.0 (1.6-2.3) mg/dL Total Bilirubin 0.6 (0.2-1.3) mg/dL AST 36 (17-59) U/L ALT 29 (4-49) U/L Alkaline Phosphatase 66 (38-126) U/L Lactate Dehydrogenase 885 H (313-618) U/L C-Reactive Protein 56.8 H (<10.0) mg/L Total Protein 6.4 (6.3-8.2) g/dL Albumin 3.7 (3.5-5.0) g/dL 02/10/21 Range/Units 17:10 WBC (3.8-10.6) k/uL RBC (4.30-5.90) m/uL Hgb (13.0-17.5) gm/dL Hct (39.0-53.0) % MCV (80.0-100.0) fL MCH (25.0-35.0) pg MCHC (31.0-37.0) g/dL RDW (11.5-15.5) % Plt Count (150-450) k/uL MPV Neutrophils % % Lymphocytes % % Monocytes % % Eosinophils % % Basophils % % Neutrophils # (1.3-7.7) k/uL Lymphocytes # (1.0-4.8) k/uL Monocytes # (0-1.0) k/uL Eosinophils # (0-0.7) k/uL Basophils # (0-0.2) k/uL PT (9.0-12.0) sec INR (<1.2) APTT (22.0-30.0) sec D-Dimer (<0.60) mg/L FEU Sodium (137-145) mmol/L Potassium (3.5-5.1) mmol/L Chloride (98-107) mmol/L Carbon Dioxide (22-30) mmol/L Anion Gap mmol/L BUN (9-20) mg/dL Creatinine (0.66-1.25) mg/dL Est GFR (CKD-EPI)AfAm (>60 ml/min/1.73 sqM) Est GFR (CKD-EPI)NonAf (>60 ml/min/1.73 sqM) Glucose (74-99) mg/dL Plasma Lactic Acid Nathanael 1.3 (0.7-2.0) mmol/L Calcium (8.4-10.2) mg/dL Magnesium (1.6-2.3) mg/dL Total Bilirubin (0.2-1.3) mg/dL AST (17-59) U/L ALT (4-49) U/L Alkaline Phosphatase (38-126) U/L Lactate Dehydrogenase (313-618) U/L C-Reactive Protein (<10.0) mg/L Total Protein (6.3-8.2) g/dL Albumin (3.5-5.0) g/dL Critical Care Time Critical Care Time: Yes Total Critical Care Time: 35 <Sundeep Baptiste - Last Filed: 02/10/21 19:28> Disposition <Wilfredo Ochoa - Last Filed: 02/10/21 18:30> Is patient prescribed a controlled substance at d/c from ED?: No Decision to Admit Reason: Admit from EC Decision Date: 02/10/21 Decision Time: 19:28 <Sundeep Baptiste - Last Filed: 02/10/21 19:28> Clinical Impression: Pneumonia due to COVID-19 virus, Hypoxia Disposition: ADMITTED IP TO THIS [facility] Condition: Stable Referrals: Sonya Gonzalez DO [Primary Care Provider] - 1-2 days
--- NOTE | 2021-02-10 17:32 | XR ---
EXAMINATION TYPE: XR chest 1V portable DATE OF EXAM: 02/10/2021 COMPARISON: 11/01/2019 HISTORY: Pneumonia Chest pain TECHNIQUE: Single view FINDINGS: There is poorly marginated patchy of infiltrate in the periphery of the right upper lobe. T he other lung vázquez are fairly clear. Heart size is normal. There are chest leads. Costophrenic angl es are clear. IMPRESSION: There is some pneumonia in the lateral right upper lobe that appears new compared to old exam. There is clearing of the infiltrate left lung base compared to old exam. Normal heart.
[2021-02-10 17:42] LABS: Basophils % (A) 0 %; Eosinophils % (A) 0 %; HGB 14.6 gm/dL (13.0-17.5); Lymphocytes # (A) 0.9 k/uL (1.0-4.8); Lymphocytes % (A) 13 %; MCH 29.9 pg (25.0-35.0); MCHC 33.2 g/dL (31.0-37.0); MCV 90.1 fL (80.0-100.0); Mean Platelet Volume 7.8; Monocytes # (A) 0.4 k/uL (0-1.0); Monocytes % (A) 5 %; Neutrophils # (A) 5.8 k/uL (1.3-7.7); Neutrophils % (A) 81 %; Platelet Count 189 k/uL (150-450); RBC 4.88 m/uL (4.30-5.90); RDW 13.4 % (11.5-15.5); WBC 7.2 k/uL (3.8-10.6)
[2021-02-10 17:48] LABS: Chloride 93 mmol/L (98-107)
[2021-02-10 17:52] LABS: Blood Urea Nitrogen 26 mg/dL (9-20); Total Bilirubin 0.6 mg/dL (0.2-1.3)
[2021-02-10 17:53] LABS: ALT 29 U/L (4-49); AST 36 U/L (17-59); African American GFR (CKD) >90 (>60 ml/min/1.73 sqM); Albumin 3.7 g/dL (3.5-5.0); Alkaline Phosphatase 66 U/L (38-126); Anion Gap 10 mmol/L; C Reactive Protein 56.8 mg/L (<10.0); Calcium 8.7 mg/dL (8.4-10.2); Carbon Dioxide 30 mmol/L (22-30); Glucose 218 mg/dL (74-99); LDH 885 U/L (313-618); Non-African American GFR(CKD) 89 (>60 ml/min/1.73 sqM); Potassium 3.7 mmol/L (3.5-5.1); Sodium 133 mmol/L (137-145); Total Protein 6.4 g/dL (6.3-8.2)
[2021-02-10 17:57] LABS: Partial Thromboplastin Time 24.7 sec (22.0-30.0)
[2021-02-10 18:01] LABS: D-Dimer 1.5 mg/L FEU (<0.60)
--- NOTE | 2021-02-10 19:11 | CT ---
EXAMINATION TYPE: CT chest angio for PE DATE OF EXAM: 02/10/2021 COMPARISON: 10/24/2019 HISTORY: Covid +, elevated d-dimer CT DLP: 462.8 mGycm Automated exposure control for dose reduction was used. CONTRAST: Performed with IV Contrast, patient injected with 80 mL of Isovue 370. There are 3-D post processed images. There is patchy groundglass interstitial infiltrates in the periphery of both lungs. Heart size is no rmal. There is no pericardial effusion. There is mild pleural thickening at the right lung base. Ther e are no hilar masses. There are a few mediastinal lymph nodes that measure up to 1 cm. Thoracic aort a is intact. There is no aneurysm or dissection. There is no evidence of filling defect in the pulmonary arteries. The bony thorax is intact. There is some spurring in the thoracic spine. Sternum is intact. IMPRESSION: No evidence of pulmonary embolism. There is patchy bilateral groundglass interstitial pulmonary infil trates which appear new compared to old exam.
[2021-02-10] MEDS ORDERED: DEXAMETHASONE SOD PHOSPHATE 10 MG/ML 1 ML VIAL IV STA (19:24)
[2021-02-10] MEDS ORDERED: NALOXONE 0.4 MG/ML 1 ML VIAL IV PRN (19:25)
[2021-02-10] MEDS ORDERED: SODIUM CHLORIDE 0.9% 1,000 ML IV SCH (19:30)
[2021-02-11 00:18] LABS: Ferritin 665.7 ng/mL (22.0-322.0)
[2021-02-11] MEDS: ACETAMINOPHEN TAB 325 MG TAB PO PRN (02:08)
[2021-02-11 07:03] LABS: Glucose,Whole Blood 311 mg/dL (75-99)
[2021-02-11] MEDS: ZINC SULFATE 220 MG CAP PO SCH (10:34)
[2021-02-11] MEDS: CHOLECALCIFEROL 25 MCG (1000 IU) TABLET PO SCH (10:34)
[2021-02-11] MEDS: dexAMETHasone 2 MG TAB PO SCH (10:34)
[2021-02-11] MEDS: ASCORBIC ACID 500 MG TAB PO SCH ×2 (10:34→21:31)
[2021-02-11] MEDS: SODIUM CHLORIDE 0.9% 1,000 ML IV SCH ×2 (10:35→21:35)
--- NOTE | 2021-02-11 10:50 | P.HPIM ---
History of Present Illness 70-year-old white male patient presents to the emergency room with 6 days of generalized weakness. Patient with a history of asthma, diabetes, high cholesterol, and hypertension. Patient states he lives with his both received the [employer] & [employer] [facility]id [facility]. Patient states has been not feeling well and seemed primary doctor Radha on Friday and was told "covid positive" on 02/05, patient's symptoms started on 02/04. Patient states for the past week has not been taking his medications as prescribed. Patient states fever as high as 103, has been taking Tylenol and Motrin alternating with last dose 3 hours ago but cannot recall Tylenol or Motrin was taken. Patient denies chest pain, states has a productive cough "musky" in color. Patient denies hemoptysis. Patient states decrease in appetite for past 6 days. Patient states feels increasingly weak and that's why he came in today. Patient states also complaining of cough but does not have a fever or weakness. Patient is presently in 2 L of oxygen. Patient had a CT of the chest which did not show any PE but did show significant bilateral infiltrates consistent with the Covid 19 pneumonia. Review of Systems REVIEW OF SYSTEMS: CONSTITUTIONAL: As mentioned in HPI HEENT: No recent visual problems or hearing problems. Denied any sore throat. CARDIOVASCULAR: No chest pain, orthopnea, PND, no palpitations, no syncope. PULMONARY: As mentioned in HPI GASTROINTESTINAL: No diarrhea, no nausea, no vomiting, no abdominal pain. NEUROLOGICAL: No headaches, no weakness, no numbness. HEMATOLOGICAL: Denies any bleeding or petechiae. GENITOURINARY: Denies any burning micturition, frequency, or urgency. MUSCULOSKELETAL/RHEUMATOLOGICAL: Denies any joint pain, swelling, or any muscle pain. ENDOCRINE: Denies any polyuria or polydipsia. The rest of the 14-point review of systems is negative. Past Medical History Past Medical History: Asthma, Diabetes Mellitus, Hyperlipidemia, Hypertension Additional Past Medical History / Comment(s): rt thigh hemotoma History of Any Multi-Drug Resistant Organisms: None Reported Past Surgical History: Orthopedic Surgery Additional Past Surgical History / Comment(s): colonoscopy, lt rotator cuff repair continues in PT Past Anesthesia/Blood Transfusion Reactions: No Reported Reaction Past Psychological History: Depression Smoking Status: Never smoker Past Alcohol Use History: None Reported Past Drug Use History: None Reported - Past Family History Father Family Medical History: Cancer Medications and Allergies Home Medications Medication Instructions Recorded Confirmed Type Mometasone/Formoterol [Dulera 200 2 puff INHALATION RT-DAILY 10/25/19 02/11/21 History Mcg/5 Mcg Inhaler] Atorvastatin [Lipitor] 20 mg PO DAILY 02/11/21 02/11/21 History Glimepiride [Amaryl] 8 mg PO DAILY 02/11/21 02/11/21 History Lisinopril-Hctz 20-25 mg 1 tab PO DAILY 02/11/21 02/11/21 History [Zestoretic 20-25] Venlafaxine HCl [Effexor] 75 mg PO TID 02/11/21 02/11/21 History metFORMIN HCL 1,000 mg PO BID 02/11/21 02/11/21 History Allergies Allergy/AdvReac Type Severity Reaction Status Date / Time hay Allergy Itching Uncoded 02/10/21 20:14 Physical Exam Vitals: Vital Signs Temp Pulse Pulse Resp BP BP Pulse Ox 02/11/21 10:00 97.6 F 73 18 133/69 92 L 02/11/21 07:48 95 02/11/21 05:55 97.6 F 61 20 131/63 94 L 02/11/21 02:37 99.6 F 85 19 135/67 92 L 02/10/21 23:21 98.9 F 83 132/61 97 02/10/21 22:30 144/82 93 L 02/10/21 22:00 96 17 159/74 81 L 02/10/21 21:30 90 20 157/73 93 L 02/10/21 21:00 87 20 146/76 97 02/10/21 20:30 87 17 168/86 81 L 02/10/21 20:00 80 11 L 170/88 93 L 02/10/21 19:30 78 16 169/83 96 02/10/21 18:30 71 17 156/81 94 L 02/10/21 18:00 73 15 147/83 90 L 02/10/21 17:30 72 16 135/73 93 L 02/10/21 17:00 20 02/10/21 16:20 98.4 F 75 18 119/65 94 L Intake and Output 03/02/11/21 02/11/21 22:59 06:59 14:59 Other: Weight 97.976 kg 97.976 kg PHYSICAL EXAMINATION: GENERAL: The patient is alert and oriented x3, not in any acute distress. Well developed, well nourished. HEENT: Pupils are round and equally reacting to light. EOMI. No scleral icterus. No conjunctival pallor. Normocephalic, atraumatic. No pharyngeal erythema. No thyromegaly. CARDIOVASCULAR: S1 and S2 present. No murmurs, rubs, or gallops. PULMONARY: Chest is clear to auscultation, no wheezing or crackles. ABDOMEN: Soft, nontender, nondistended, normoactive bowel sounds. No palpable organomegaly. MUSCULOSKELETAL: No joint swelling or deformity. EXTREMITIES: No cyanosis, clubbing, or pedal edema. NEUROLOGICAL: Gross neurological examination did not reveal any focal deficits. SKIN: No rashes. Results CBC & Chem 7: 02/10/21 17:10 02/10/21 17:10 Labs: Abnormal Lab Results - Last 24 Hours (Table) 02/10/21 02/10/21 02/10/21 Range/Units 17:10 17:10 17:10 Lymphocytes # 0.9 L (1.0-4.8) k/uL D-Dimer 1.50 H (<0.60) mg/L FEU Sodium 133 L (137-145) mmol/L Chloride 93 L (98-107) mmol/L BUN 26 H (9-20) mg/dL Glucose 218 H (74-99) mg/dL POC Glucose (mg/dL) (75-99) mg/dL Ferritin 665.7 H (22.0-322.0) ng/mL Lactate Dehydrogenase 885 H (313-618) U/L C-Reactive Protein 56.8 H (<10.0) mg/L Procalcitonin (0.02-0.09) ng/mL 02/10/21 02/11/21 Range/Units 17:10 06:53 Lymphocytes # (1.0-4.8) k/uL D-Dimer (<0.60) mg/L FEU Sodium (137-145) mmol/L Chloride (98-107) mmol/L BUN (9-20) mg/dL Glucose (74-99) mg/dL POC Glucose (mg/dL) 311 H (75-99) mg/dL Ferritin (22.0-322.0) ng/mL Lactate Dehydrogenase (313-618) U/L C-Reactive Protein (<10.0) mg/L Procalcitonin 0.46 H (0.02-0.09) ng/mL Thrombosis Risk Factor Assmnt - Choose All That Apply Each Factor Represents 1 point: Obesity (BMI >25), Serious lung disease incl. pneumonia (< 1month), Swollen legs (current) Each Risk Factor Represents 2 Points: Age 61-74 years Thrombosis Risk Factor Assessment Total Risk Factor Score: 5 Thrombosis Risk Factor Assessment Level: High Risk Assessment and Plan Plan: -Covid 19 pneumonia: Patient is on 2 L of oxygen patient was started on Decadron, vitamins, patient will be a candidate for Remdesivir. Pulmonology was consulted. -Hypovolemic hyponatremia: Continue with IV fluids -Type 2 diabetes mellitus uncontrolled blood sugars and elevated blood sugars fasting that he is currently on Decadron patient is expected to have highly elevated blood sugars. Patient will be started on 15 units of long-acting insulin along with sliding scale. Patient's metformin will be held continue with the sulfonylurea -Hypertension -Hyperlipidemia -Asthma without any acute exacerbation at this time -DVT prophylaxis Lovenox
[2021-02-11 12:33] LABS: Glucose,Whole Blood 292 mg/dL (75-99)
[2021-02-11] MEDS: INSULIN ASPART (NovoLOG) 100 UNIT/ML VIAL SQ SCH ×3 (12:37→21:31)
--- NOTE | 2021-02-11 15:31 | P.CNPUL ---
History of Present Illness Consult date: 02/11/21 Requesting physician: Adriana Sheridan Reason for consult: dyspnea, abnormal CXR/CT Chief complaint: Shortness of breath cough, weakness History of present illness: This is a very pleasant 70-year-old gentleman who follows with Dr. Knapp as his primary care provider. He has a history of mild intermittent chronic bronchial asthma, diabetes mellitus, hyperlipidemia, hypertension, depression. Lifelong nonsmoker. He presented to the emergency room yesterday with a six-day history of shortness of breath, generalized weakness, cough and congestion. He did receive the Ch[employer]kant & Chandrakant vaccine on 01/22/2021. He tested positive for chlamydia 02/05/2021. Chest x-ray reveals lateral right upper lobe patchy infiltrate. CT angiogram ruled out pulmonary embolism. There is patchy bilater al groundglass interstitial pulmonary infiltrates noted. White count 7.2. Hemoglobin 14.6. Lymphocytes 0.9. D-dimer 1.50. Sodium 13. Potassium 3.7. Creatinine 0.85. LDH 885. C-reactive protein 56.8. Pro-calcitonin 0.46. 0.9 normal saline at 75 ML's per hour. He is seen today in consultation on the regular medical floor. He is quite hoarse and weak. He is currently sitting up in bed with his oxygen off. Room air O2 saturation 92%. Review of Systems REVIEW OF SYSTEMS: CONSTITUTIONAL: No list weakness, fatigue. Denies any recent significant weight loss or weight gain. EYES: Denies change in vision. EARS, NOSE, MOUTH, THROAT: Hoarseness CARDIOVASCULAR: Denies chest pain, palpitations or syncopal episodes. RESPIRATORY: Positive for shortness of breath, cough, congestion no hemoptysis. GASTROINTESTINAL: Poor appetite, denies abdominal pain GENITOURINARY: Denies hematuria, denies infections. MUSKULOSKELETAL: Denies pain, denies swelling. INTEGUMENTARY: Denies rash, denies eczema. NEUROLOGICAL: Denies recent memory loss, no recent seizure activity. PSYCHIATRIC: Denies anxiety, denies depression. HEMATOLOGIC/LYMPHATIC: Denies anemia, denies enlarged lymph nodes. Past Medical History Past Medical History: Asthma, Diabetes Mellitus, Hyperlipidemia, Hypertension Additional Past Medical History / Comment(s): rt thigh hemotoma History of Any Multi-Drug Resistant Organisms: None Reported Past Surgical History: Orthopedic Surgery Additional Past Surgical History / Comment(s): colonoscopy, lt rotator cuff repair continues in PT Past Anesthesia/Blood Transfusion Reactions: No Reported Reaction Past Psychological History: Depression Smoking Status: Never smoker Past Alcohol Use History: None Reported Past Drug Use History: None Reported - Past Family History Father Family Medical History: Cancer Medications and Allergies Home Medications Medication Instructions Recorded Confirmed Type Mometasone/Formoterol [Dulera 200 2 puff INHALATION RT-DAILY 10/25/19 02/11/21 History Mcg/5 Mcg Inhaler] Atorvastatin [Lipitor] 20 mg PO DAILY 02/11/21 02/11/21 History Glimepiride [Amaryl] 8 mg PO DAILY 02/11/21 02/11/21 History Lisinopril-Hctz 20-25 mg 1 tab PO DAILY 02/11/21 02/11/21 History [Zestoretic 20-25] Venlafaxine HCl [Effexor] 75 mg PO TID 02/11/21 02/11/21 History metFORMIN HCL 1,000 mg PO BID 02/11/21 02/11/21 History Allergies Allergy/AdvReac Type Severity Reaction Status Date / Time hay Allergy Itching Uncoded 02/10/21 20:14 Physical Exam Vitals: Vital Signs Temp Pulse Pulse Resp BP BP Pulse Ox 02/11/21 14:00 98.2 F 89 18 145/62 93 L 02/11/21 10:00 97.6 F 73 18 133/69 92 L 02/11/21 09:45 16 02/11/21 07:48 95 02/11/21 05:55 97.6 F 61 20 131/63 94 L 02/11/21 02:37 99.6 F 85 19 135/67 92 L 02/10/21 23:21 98.9 F 83 132/61 97 02/10/21 22:30 144/82 93 L 02/10/21 22:00 96 17 159/74 81 L 02/10/21 21:30 90 20 157/73 93 L 02/10/21 21:00 87 20 146/76 97 02/10/21 20:30 87 17 168/86 81 L 02/10/21 20:00 80 11 L 170/88 93 L 02/10/21 19:30 78 16 169/83 96 02/10/21 18:30 71 17 156/81 94 L 02/10/21 18:00 73 15 147/83 90 L 02/10/21 17:30 72 16 135/73 93 L 02/10/21 17:00 20 02/10/21 16:20 98.4 F 75 18 119/65 94 L Intake and Output 02/11/21 02/11/21 02/11/21 06:59 14:59 22:59 Intake Total 200 Balance 200 Intake: Oral 200 Other: Weight 97.976 kg GENERAL EXAM: Alert, pleasant 70-year-old gentleman, on room air, comfortable in no apparent distress. HEAD: Normocephalic. EYES: Normal reaction of pupils, equal size. NOSE: Clear with pink turbinates. THROAT: No erythema or exudates. NECK: No masses, no JVD. CHEST: No chest wall deformity. LUNGS: Equal air entry with few scattered rhonchi, crackles in the posterior bases CVS: S1 and S2 normal with no audible murmur, regular rhythm. ABDOMEN: No hepatosplenomegaly, normal bowel sounds, no guarding or rigidity. SPINE: No scoliosis or deformity SKIN: No rashes CENTRAL NERVOUS SYSTEM: No focal deficits, tone is normal in all 4 extremities. EXTREMITIES: There is no peripheral edema. No clubbing, no cyanosis. Peripheral pulses are intact. Results - Laboratory Findings CBC and BMP: 02/10/21 17:10 02/10/21 17:10 PT/INR, D-dimer PT 11.0 sec (9.0-12.0) 02/10/21 17:10 INR 1.0 (<1.2) 02/10/21 17:10 D-Dimer 1.50 mg/L FEU (<0.60) H 02/10/21 17:10 Abnormal lab findings: Abnormal Labs 02/10/21 02/10/21 02/10/21 17:10 17:10 17:10 Lymphocytes # 0.9 L D-Dimer 1.50 H Sodium 133 L Chloride 93 L BUN 26 H Glucose 218 H POC Glucose (mg/dL) Ferritin 665.7 H Lactate Dehydrogenase 885 H C-Reactive Protein 56.8 H Procalcitonin 02/10/21 02/11/21 02/11/21 17:10 06:53 12:31 Lymphocytes # D-Dimer Sodium Chloride BUN Glucose POC Glucose (mg/dL) 311 H 292 H Ferritin Lactate Dehydrogenase C-Reactive Protein Procalcitonin 0.46 H - Diagnostic Findings Chest x-ray: image reviewed CT scan - chest: image reviewed Assessment and Plan Assessment: 1 Acute hypoxemic respiratory failure secondary to acute CoVID 19 pneumonia. The patient did receive the Ch[employer]kant & Chandrakant vaccine on 01/22/2021 2 Elevated inflammatory markers secondary to above 3 Diabetes mellitus 4 Hypertension 5 Mild intermittent chronic bronchial asthma 6 Depression 7 Lifelong nonsmoker Plan: The patient was seen and evaluated by Dr. Mendez We will continue with dexamethasone, Lovenox, vitamin supplements Continue bronchodilators, currently on room air We'll continue to follow and make further recommendations based on his clinical status I, the cosigning physician, performed a history & physical examination of the patient. Lungs sounds scattered rhonchi, crackles in the posterior bases. Maintaining good O2 saturations in the 90s on room air. I discussed the assessment and plan of care with my nurse practitioner, Jessica Llanes. I attest to the above consultation as dictated by her.
[2021-02-11 16:34] LABS: Glucose,Whole Blood 281 mg/dL (75-99)
[2021-02-11] MEDS: VENLAFAXINE HCL 75 MG TAB PO SCH ×2 (17:29→22:25)
[2021-02-11 21:08] LABS: Glucose,Whole Blood 327 mg/dL (75-99)
[2021-02-11] MEDS: FAMOTIDINE 20 MG TAB PO SCH (21:31)
[2021-02-11] MEDS: INSULIN DETEMIR (LEVEMIR) 100 UNIT/ML SYR SQ SCH (21:31)
[2021-02-12 07:28] LABS: Glucose,Whole Blood 205 mg/dL (75-99)
[2021-02-12] MEDS: SYMBICORT 160-4.5 MCG INHALER INHALATION SCH (07:58)
[2021-02-12] MEDS: ENOXAPARIN 40 MG/0.4 ML SYRINGE SQ SCH (08:54)
[2021-02-12] MEDS: FAMOTIDINE 20 MG TAB PO SCH ×2 (08:54→20:58)
[2021-02-12] MEDS: ASCORBIC ACID 500 MG TAB PO SCH ×2 (08:54→20:58)
[2021-02-12] MEDS: ATORVASTATIN 20 MG TAB PO SCH (08:54)
[2021-02-12] MEDS: dexAMETHasone 2 MG TAB PO SCH (08:54)
[2021-02-12] MEDS: CHOLECALCIFEROL 25 MCG (1000 IU) TABLET PO SCH (08:54)
[2021-02-12] MEDS: INSULIN ASPART (NovoLOG) 100 UNIT/ML VIAL SQ SCH ×4 (08:54→20:58)
[2021-02-12] MEDS: ZINC SULFATE 220 MG CAP PO SCH (08:54)
[2021-02-12] MEDS: VENLAFAXINE HCL 75 MG TAB PO SCH ×3 (08:55→20:58)
[2021-02-12] MEDS: GLIMEPIRIDE 4 MG TAB PO SCH (08:55)
[2021-02-12 11:27] LABS: Glucose,Whole Blood 398 mg/dL (75-99)
--- NOTE | 2021-02-12 11:55 | P.PN ---
Subjective Progress Note Date: 02/12/21 This is a very pleasant 70-year-old gentleman who follows with Dr. Knapp as his primary care provider. He has a history of mild intermittent chronic bronchial asthma, diabetes mellitus, hyperlipidemia, hypertension, depression. Lifelong nonsmoker. He presented to the emergency room yesterday with a six-day history of shortness of breath, generalized weakness, cough and congestion. He did receive the Chandrakant & Chandrakant vaccine on 01/22/2021. He tested positive for chlamydia 02/05/2021. Chest x-ray reveals lateral right upper lobe patchy infiltrate. CT angiogram ruled out pulmonary embolism. There is patchy bilateral groundglass interstitial pulmonary infiltrates noted. White count 7.2. Hemoglobin 14.6. Lymphocytes 0.9. D-dimer 1.50. Sodium 13. Potassium 3.7. Creatinine 0.85. LDH 885. C-reactive protein 56.8. Pro-calcitonin 0.46. 0.9 normal saline at 75 ML's per hour. He is seen today in consultation on the regular medical floor. He is quite hoarse and weak. He is currently sitting up in bed with his oxygen off. Room air O2 saturation 92%. 02/12/2021, the patient is being seen for a follow-up. This patient was hospitalized for an acute hypoxic respiratory failure secondary to COVID 19 related pneumonia. Noted the patient did receive the Chandrakant & Chandrakant vacc ination on 01/22/2021. The patient had hypoxic respiratory failure and elevated inflammatory markers. Comorbid conditions include diabetes and hypertension and mild asthma. For now, the patient is on oxygen at 2 L per minute nasal cannula. The CT angios the chest showed patchy bilateral groundglass pulmonary infiltrates and there was no evidence of any pulmonary embolism. The patient has a maintained on Decadron 6 mg by mouth daily. The patient is on Levemir insulin 15 units at bedtime in addition to a NovoLog sliding scale coverage. The patient on normal saline today to 75 mL an hour. The patient is on Lovenox 40 mg subcu for DVT prophylaxis.. Pro-calcitonin at time of admission was 0.46. No abnormalities in the LFTs. CRP was 56 with a LDH of 885. Objective - Vital Signs Vital signs: Vital Signs Temp 97.9 F 02/12/21 09:43 Pulse 66 02/12/21 09:43 Resp 20 02/12/21 09:43 BP 138/68 02/12/21 09:43 Pulse Ox 92 L 02/12/21 09:43 Intake & Output 02/11/21 02/12/21 02/12/21 18:59 06:59 18:59 Intake Total 450 Balance 450 Intake: Oral 450 Other: # Voids 2 - Exam GENERAL EXAM: Alert, pleasant 70-year-old gentleman, on room air, comfortable in no apparent distress. HEAD: Normocephalic. EYES: Normal reaction of pupils, equal size. NOSE: Clear with pink turbinates. THROAT: No erythema or exudates. NECK: No masses, no JVD. CHEST: No chest wall deformity. LUNGS: Equal air entry with few scattered rhonchi, crackles in the posterior bases CVS: S1 and S2 normal with no audible murmur, regular rhythm. ABDOMEN: No hepatosplenomegaly, normal bowel sounds, no guarding or rigidity. SPINE: No scoliosis or deformity SKIN: No rashes CENTRAL NERVOUS SYSTEM: No focal deficits, tone is normal in all 4 extremities. EXTREMITIES: There is no peripheral edema. No clubbing, no cyanosis. Peripheral pulses are intact. - Labs CBC & Chem 7: 02/10/21 17:10 02/10/21 17:10 Labs: Abnormal Lab Results - Last 24 Hours (Table) 02/11/21 02/11/21 02/11/21 Range/Units 12:31 16:32 21:07 POC Glucose (mg/dL) 292 H 281 H 327 H (75-99) mg/dL 02/12/21 02/12/21 Range/Units 07:16 11:25 POC Glucose (mg/dL) 205 H 398 H (75-99) mg/dL Assessment and Plan Plan: 1 Acute hypoxemic respiratory failure secondary to acute CoVID 19 pneumonia. The patient did receive the Chandrakant & Chandrakant vaccine on 01/22/2021, the patient is currently on 2 L nasal cannula with a pulse ox in the 90s. The patient on Decadron. The patient on Lovenox for deep prophylaxis. Mild elevation of the inflammatory markers. The patient tested positive for Covid 19 infection on 02/05/2021. 2 Elevated inflammatory markers secondary to above 3 Diabetes mellitus, currently on Levemir insulin for blood sugar control in addition to a sliding scale coverage. 4 Hypertension 5 Mild intermittent chronic bronchial asthma 6 Depression 7 Lifelong nonsmoker Plan: We will continue with dexamethasone, Lovenox, vitamin supplements Proceed with Remdesivir per protocol Continue bronchodilators, currently on 2 L about 2 by nasal cannula and the pulse ox is around 91-92%. On examination, he has some limited factors lung bases more so on the right. Inflammatory markers are slightly elevated at time of admission. We'll continue to follow and make further recommendations based on his clinical status
[2021-02-12] MEDS: SODIUM CHLORIDE 0.9% 1,000 ML IV SCH (13:54)
[2021-02-12] MEDS ORDERED: REMDESIVIR 200 MG in SODIUM CHLORIDE 0.9% 250 ML IVPB ONE (14:00)
[2021-02-12 16:33] LABS: Glucose,Whole Blood 282 mg/dL (75-99)
[2021-02-12 20:22] LABS: Glucose,Whole Blood 335 mg/dL (75-99)
[2021-02-12] MEDS: INSULIN DETEMIR (LEVEMIR) 100 UNIT/ML SYR SQ SCH (20:58)
--- NOTE | 2021-02-12 23:26 | P.PN ---
Subjective Progress Note Date: 02/12/21 Principal diagnosis: COVID Pneumonia Mr. Urban is a 70-year-old white male patient presents to the emergency room with 6 days of generalized weakness. Patient with a history of asthma, diabetes, high cholesterol, and hypertension. Patient states he lives with his both received the [employer] [facility] vaccine [facility]. Patient states has been not feeling well and seemed primary doctor Radha on Friday and was told "covid positive" on 02/05, patient's symptoms started on 02/04. Patient states for the past week has not been taking his medications as prescribed. Patient states fever as high as 103, has been taking Tylenol and Motrin alternating with last dose 3 hours ago but cannot recall Tylenol or Motrin was taken. Patient denies chest pain, states has a productive cough "musky" in color. Patient denies hemoptysis. Patient states decrease in appetite for past 6 days. Patient states feels increasingly weak and that's why he came in today. Patient states also complaining of cough but does not have a fever or weakness. Patient is presently in 2 L of oxygen. Patient had a CT of the chest which did not show any PE but did show significant bilateral infiltrates consistent with the Covid 19 pneumonia. On 02/12/2021 -patient was seen and examined at bedside. He is comfortably sitting up in a chair by the bedside appears to be in no acute distress. Patient complains of generalized weakness and fatigue. He denies having any fevers chills or rigors. He still has ongoing difficulty in breathing but better than the time of admission. He denies having any cough. No abdominal pain nausea vomiting or diarrhea. No dysuria or hematuria. On reviewing the vitals patient's T-max of 98.5, heart rate 60, respiratory 16, blood pressure 139 with 67 and saturating at 94% on 2 L of nasal cannula. From this morning. Patient's blood sugars have been running high around 300s possibly due to steroids that he is on. On 02/13/2021 -patient was seen and examined at bedside. Patient states that he is difficulty in breathing is improving and he is saturating at 94% on 2 L of oxygen. Patient denies having any fevers chills or rigors T-max of 98.3. Patient's blood pressure 140 x 72. He denies having any abdominal pain nausea vomiting or diarrhea. No dysuria or hematuria. He continues to be on dexamethasone, Lovenox, remdesivir, zinc, vitamin C. On reviewing his labs from this morning white count of 10.1, hemoglobin 13.7, platelets 308. D-dimer 2.02. Sodium 142, potassium 4.2, chloride 105, bicarb 28, BUN 26, creatinine 0.7. Active Medications Acetaminophen (Acetaminophen Tab 325 Mg Tab) 650 mg PO Q6HR PRN PRN Reason: Mild Pain or Fever > 100.5 Last Admin: 02/11/21 02:08 Dose: 650 mg Documented by: Ascorbic Acid (Ascorbic Acid 500 Mg Tab) 500 mg PO BID [facility] Last Admin: 02/13/21 20:41 Dose: 500 mg Documented by: Atorvastatin Calcium (Atorvastatin 20 Mg Tab) 20 mg PO DAILY [facility] Last Admin: 02/13/21 08:08 Dose: 20 mg Documented by: Budesonide/Formoterol Fumarate (Symbicort 160-4.5 Mcg Inhaler) 2 puff INHALATION RT-DAILY [facility] Last Admin: 02/13/21 09:02 Dose: 2 puff Documented by: Cholecalciferol (Cholecalciferol 25 Mcg (1000 Iu) Tablet) 25 mcg PO DAILY [facility] Last Admin: 02/13/21 08:07 Dose: 25 mcg Documented by: Dexamethasone (Dexamethasone 2 Mg Tab) 6 mg PO DAILY [facility] Last Admin: 02/13/21 08:07 Dose: 6 mg Documented by: Enoxaparin Sodium (Enoxaparin 40 Mg/0.4 Ml Syringe) 40 mg SQ DAILY [facility] Last Admin: 02/13/21 08:07 Dose: 40 mg Documented by: Famotidine (Famotidine 20 Mg Tab) 20 mg PO BID [facility] Last Admin: 02/13/21 20:41 Dose: 20 mg Documented by: Glimepiride (Glimepiride 4 Mg Tab) 8 mg PO DAILY [facility] Last Admin: 02/13/21 08:08 Dose: 8 mg Documented by: Guaifenesin/Dextromethorphan (Guaifenesin-Dm 100-10mg/5ml 10 Ml Cup) 10 ml PO Q6H PRN PRN Reason: Cough Sodium Chloride (Saline 0.9%) 1,000 mls @ 75 mls/hr IV .[id number] [facility] Last Admin: 02/13/21 16:35 Dose: Not Given Documented by: Remdesivir 100 mg/ Sodium (Chloride) 250 mls @ 250 mls/hr IVPB DAILY@1400 [facility] Stop: 02/16/21 14:59 Last Admin: 02/13/21 14:35 Dose: 250 mls/hr Documented by: Insulin Aspart (Insulin Aspart (Novolog) 100 Unit/Ml Vial) 0 unit SQ ACHS [facility]; Protocol Last Admin: 02/13/21 20:41 Dose: 3 unit Documented by: Insulin Detemir (Insulin Detemir (Levemir) 100 Unit/Ml Syr) 15 unit SQ HS [facility] Last Admin: 02/13/21 20:42 Dose: 15 unit Documented by: Naloxone HCl (Naloxone 0.4 Mg/Ml 1 Ml Vial) 0.2 mg IV Q2M PRN PRN Reason: Opioid Reversal Venlafaxine HCl (Venlafaxine Hcl 75 Mg Tab) 75 mg PO TID [facility] Last Admin: 02/13/21 17:14 Dose: 75 mg Documented by: Zinc Sulfate (Zinc Sulfate 220 Mg Cap) 220 mg PO DAILY [facility] Last Admin: 02/13/21 08:07 Dose: 220 mg Documented by: Objective - Vital Signs Vital signs: Vital Signs Temp 97.9 F 02/12/21 09:43 Pulse 66 02/12/21 09:43 Resp 20 02/12/21 09:43 BP 138/68 02/12/21 09:43 Pulse Ox 92 L 02/12/21 09:43 Intake & Output 02/11/21 02/12/21 02/12/21 18:59 06:59 18:59 Intake Total 450 Balance 450 Intake: Oral 450 Other: # Voids 2 - Exam PHYSICAL EXAMINATION: GENERAL: The patient is alert and oriented x3, not in any acute distress. Well developed, well nourished. HEENT: Pupils are round and equally reacting to light. EOMI. No scleral icterus. No conjunctival pallor. CARDIOVASCULAR: S1 and S2 present. No murmurs, rubs, or gallops. PULMONARY: Bilateral coarse breath sounds, few posterior crackles ABDOMEN: Soft, nontender, nondistended, normoactive bowel sounds. No palpable organomegaly. MUSCULOSKELETAL: No joint swelling or deformity. EXTREMITIES: No cyanosis, clubbing, or pedal edema. NEUROLOGICAL: Gross neurological examination did not reveal any focal deficits. - Labs CBC & Chem 7: 02/13/21 06:17 02/13/21 06:17 Labs: Abnormal Lab Results - Last 24 Hours (Table) 02/11/21 02/11/21 02/12/21 Range/Units 16:32 21:07 07:16 POC Glucose (mg/dL) 281 H 327 H 205 H (75-99) mg/dL 02/12/21 Range/Units 11:25 POC Glucose (mg/dL) 398 H (75-99) mg/dL Assessment and Plan Assessment: ASSESSMENT COVID-19 pneumonia Hypovolemic hyponatremia Type 2 diabetes mellitus poorly controlled due to steroids Hypertension Hyperlipidemia Asthma without any acute exacerbation GI DVT prophylaxis Plan: Patient to be continued on remdesivir, Decadron, Lovenox, zinc and vitamin C supplements. Will adjust the dose of insulin depending upon his blood sugars. Continue with the rest of his current medication regimen. Further recommendations to follow depending on the progress of the patient.
[2021-02-13] MEDS: SODIUM CHLORIDE 0.9% 1,000 ML IV SCH ×3 (02:12→23:36)
[2021-02-13 07:00] LABS: Glucose,Whole Blood 75 mg/dL (75-99)
[2021-02-13] MEDS: INSULIN ASPART (NovoLOG) 100 UNIT/ML VIAL SQ SCH ×4 (07:55→20:41)
[2021-02-13] MEDS: FAMOTIDINE 20 MG TAB PO SCH ×2 (08:07→20:41)
[2021-02-13] MEDS: CHOLECALCIFEROL 25 MCG (1000 IU) TABLET PO SCH (08:07)
[2021-02-13] MEDS: ENOXAPARIN 40 MG/0.4 ML SYRINGE SQ SCH (08:07)
[2021-02-13] MEDS: dexAMETHasone 2 MG TAB PO SCH (08:07)
[2021-02-13] MEDS: ZINC SULFATE 220 MG CAP PO SCH (08:07)
[2021-02-13] MEDS: ASCORBIC ACID 500 MG TAB PO SCH ×2 (08:08→20:41)
[2021-02-13] MEDS: ATORVASTATIN 20 MG TAB PO SCH (08:08)
[2021-02-13] MEDS: VENLAFAXINE HCL 75 MG TAB PO SCH ×3 (08:08→23:35)
[2021-02-13] MEDS: GLIMEPIRIDE 4 MG TAB PO SCH (08:08)
[2021-02-13 08:38] LABS: Basophils # (A) 0.02 X 10*3/uL (0.00-0.10); Basophils % (A) 0.2 %; Eosinophils # (A) 0.01 X 10*3/uL (0.04-0.35); Eosinophils % (A) 0.1 %; HCT 41.3 % (39.6-50.0); HGB 13.7 g/dL (13.0-17.0); Lymphocytes # (A) 1.46 X 10*3/uL (0.90-5.00); Lymphocytes % (A) 14.4 %; MCH 30.5 pg (27.0-32.0); MCHC 33.2 g/dL (32.0-37.0); Mean Platelet Volume 10.3 fL (9.5-12.2); Monocytes # (A) 0.77 X 10*3/uL (0.20-1.00); Monocytes % (A) 7.6 %; Neutrophils # (A) 7.78 X 10*3/uL (1.80-7.70); Neutrophils % (A) 76.9 %; Platelet Count 308 X 10*3/uL (140-440); RBC 4.49 X 10*6/uL (4.40-5.60); RDW 12.8 % (11.5-14.5); WBC 10.12 X 10*3/uL (4.50-10.00)
[2021-02-13] MEDS: SYMBICORT 160-4.5 MCG INHALER INHALATION SCH (09:02)
[2021-02-13 09:19] LABS: African American GFR (CKD) 111.6 (60.0-200.0); BUN/Creat Ratio 37.14 Ratio (12.00-20.00); Calcium 9.2 mg/dL (8.7-10.3); Non-African American GFR(CKD) 96.3 (60.0-200.0); Potassium 4.2 mmol/L (3.5-5.5)
[2021-02-13 11:30] LABS: Glucose,Whole Blood 117 mg/dL (75-99)
--- NOTE | 2021-02-13 12:02 | P.PN ---
Subjective Progress Note Date: 02/13/21 This is a very pleasant 70-year-old gentleman who follows with Dr. Knapp as his primary care provider. He has a history of mild intermittent chronic bronchial asthma, diabetes mellitus, hyperlipidemia, hypertension, depression. Lifelong nonsmoker. He presented to the emergency room yesterday with a six-day history of shortness of breath, generalized weakness, cough and congestion. He did receive the Chandrakant & Chandrakant vaccine on 01/22/2021. He tested positive for chlamydia 02/05/2021. Chest x-ray reveals lateral right upper lobe patchy infiltrate. CT angiogram ruled out pulmonary embolism. There is patchy bilateral groundglass interstitial pulmonary infiltrates noted. White count 7.2. Hemoglobin 14.6. Lymphocytes 0.9. D-dimer 1.50. Sodium 13. Potassium 3.7. Creatinine 0.85. LDH 885. C-reactive protein 56.8. Pro-calcitonin 0.46. 0.9 normal saline at 75 ML's per hour. He is seen today in consultation on the regular medical floor. He is quite hoarse and weak. He is currently sitting up in bed with his oxygen off. Room air O2 saturation 92%. 02/12/2021, the patient is being seen for a follow-up. This patient was hospitalized for an acute hypoxic respiratory failure secondary to COVID 19 related pneumonia. Noted the patient did receive the Chandrakant & Chandrakant vacc ination on 01/22/2021. The patient had hypoxic respiratory failure and elevated inflammatory markers. Comorbid conditions include diabetes and hypertension and mild asthma. For now, the patient is on oxygen at 2 L per minute nasal cannula. The CT angios the chest showed patchy bilateral groundglass pulmonary infiltrates and there was no evidence of any pulmonary embolism. The patient has a maintained on Decadron 6 mg by mouth daily. The patient is on Levemir insulin 15 units at bedtime in addition to a NovoLog sliding scale coverage. The patient on normal saline today to 75 mL an hour. The patient is on Lovenox 40 mg subcu for DVT prophylaxis.. Pro-calcitonin at time of admission was 0.46. No abnormalities in the LFTs. CRP was 56 with a LDH of 885. On today's evaluation of 02/13/2021, the patient is being seen for follow-up. Today the patient is on oxygen at 2 L per minute nasal cannula and the patient is being treated with steroids and the patient is currently on Decadron 6 mg by mouth daily. The patient was also started on REM yesterday and the patient is day #2 of treatment. No side effects of the treatment. The patient has no complaints. Inflammatory markers from today has not been checked. There were done at time of admission. The rest of the blood work is all within normal limits. White secondary causes at 10.1. She is afebrile. She is on Levemir insulin 15 units along with a scale. No major changes condition. Chest x-ray from yesterday was noted that repeat chest x-ray from today has not been done. Objective - Vital Signs Vital signs: Vital Signs Temp 98.0 F 02/13/21 09:47 Pulse 75 02/13/21 09:47 Resp 20 02/13/21 09:47 BP 140/72 02/13/21 09:47 Pulse Ox 94 L 02/13/21 09:47 Intake & Output 02/12/21 02/13/21 02/13/21 18:59 06:59 18:59 Other: # Voids 3 - Exam GENERAL EXAM: Alert, pleasant 70-year-old gentleman, on room air, comfortable in no apparent distress, and the patient is on 2 L of oxygen by nasal cannula.. HEAD: Normocephalic. EYES: Normal reaction of pupils, equal size. NOSE: Clear with pink turbinates. THROAT: No erythema or exudates. NECK: No masses, no JVD. CHEST: No chest wall deformity. LUNGS: Equal air entry with few scattered rhonchi, crackles in the posterior bases CVS: S1 and S2 normal with no audible murmur, regular rhythm. ABDOMEN: No hepatosplenomegaly, normal bowel sounds, no guarding or rigidity. SPINE: No scoliosis or deformity SKIN: No rashes CENTRAL NERVOUS SYSTEM: No focal deficits, tone is normal in all 4 extremities. EXTREMITIES: There is no peripheral edema. No clubbing, no cyanosis. Peripheral pulses are intact. - Labs CBC & Chem 7: 02/13/21 06:17 02/13/21 06:17 Labs: Abnormal Lab Results - Last 24 Hours (Table) 02/12/21 02/12/21 02/13/21 Range/Units 16:27 20:18 06:17 WBC 10.12 H (4.50-10.00) X 10*3/uL Immature Gran # 0.08 H (0.00-0.04) X 10*3/uL Neutrophils # 7.78 H (1.80-7.70) X 10*3/uL Eosinophils # 0.01 L (0.04-0.35) X 10*3/uL BUN/Creatinine Ratio (12.00-20.00) Ratio POC Glucose (mg/dL) 282 H 335 H (75-99) mg/dL 02/13/21 02/13/21 Range/Units 06:17 11:29 WBC (4.50-10.00) X 10*3/uL Immature Gran # (0.00-0.04) X 10*3/uL Neutrophils # (1.80-7.70) X 10*3/uL Eosinophils # (0.04-0.35) X 10*3/uL BUN/Creatinine Ratio 37.14 H (12.00-20.00) Ratio POC Glucose (mg/dL) 117 H (75-99) mg/dL Assessment and Plan Plan: 1 Acute hypoxemic respiratory failure secondary to acute CoVID 19 pneumonia. The patient did receive the Chandrakant & Chandrakant vaccine on 01/22/2021, the patient is currently on 2 L nasal cannula with a pulse ox in the 90s. The patient on Decadron. The patient on Lovenox for deep prophylaxis. Mild elevation of the inflammatory markers. The patient tested positive for Covid 19 infection on 02/05/2021. Clinically the patient is stable. He remains on 2 L of oxygen by nasal cannula. No significant deterioration while being on Decadron and REM. Is on REM day #2. 2 Elevated inflammatory markers secondary to above 3 Diabetes mellitus, currently on Levemir insulin for blood sugar control in addition to a sliding scale coverage. 4 Hypertension 5 Mild intermittent chronic bronchial asthma 6 Depression 7 Lifelong nonsmoker Plan: We will continue with dexamethasone, Lovenox, vitamin supplements Proceed with Remdesivir per protocol, currently on day #2 of treatment Continue bronchodilators, currently on 2 L about 2 by nasal cannula and the pulse ox is around 91-92%. Inflammatory markers to be checked tomorrow We'll continue to follow and make further recommendations based on his clinical status
--- NOTE | 2021-02-13 12:47 | XR ---
EXAMINATION TYPE: XR chest 1V portable DATE OF EXAM: 02/13/2021 COMPARISON: Chest x-ray 02/10/2021 HISTORY: Covid, abnormal chest x-ray TECHNIQUE: Single frontal view of the chest is obtained. FINDINGS: Bilateral airspace disease is present. No evident pneumothorax or pleural effusion. Cardia c mediastinal silhouette is unchanged. There is a spinal curvature present. Interstitium mildly incre ased. IMPRESSION: Correlate for pneumonia.
[2021-02-13] MEDS: REMDESIVIR 100 MG in SODIUM CHLORIDE 0.9% 250 ML IVPB SCH (14:35)
[2021-02-13] MEDS ORDERED: guaiFENesin-DM 100-10MG/5ML 10 ML CUP PO PRN (14:38)
[2021-02-13 16:40] LABS: Glucose,Whole Blood 247 mg/dL (75-99)
[2021-02-13 20:28] LABS: Glucose,Whole Blood 243 mg/dL (75-99)
[2021-02-13] MEDS: INSULIN DETEMIR (LEVEMIR) 100 UNIT/ML SYR SQ SCH (20:42)
--- NOTE | 2021-02-13 22:49 | P.PN ---
Subjective Progress Note Date: 02/13/21 Principal diagnosis: COVID Pneumonia Mr. Urban is a 70-year-old white male patient presents to the emergency room with 6 days of generalized weakness. Patient with a history of asthma, diabetes, high cholesterol, and hypertension. Patient states he lives with his both received the [employer] cov[facility] vaccine [facility] on [facility]. Patient states has been not feeling well and seemed primary doctor Radha on Friday and was told "covid positive" on 02/05, patient's symptoms started on 02/04. Patient states for the past week has not been taking his medications as prescribed. Patient states fever as high as 103, has been taking Tylenol and Motrin alternating with last dose 3 hours ago but cannot recall Tylenol or Motrin was taken. Patient denies chest pain, states has a productive cough "musky" in color. Patient denies hemoptysis. Patient states decrease in appetite for past 6 days. Patient states feels increasingly weak and that's why he came in today. Patient states also complaining of cough but does not have a fever or weakness. Patient is presently in 2 L of oxygen. Patient had a CT of the chest which did not show any PE but did show significant bilateral infiltrates consistent with the Covid 19 pneumonia. On 02/12/2021 -patient was seen and examined at bedside. He is comfortably sitting up in a chair by the bedside appears to be in no acute distress. Patient complains of generalized weakness and fatigue. He denies having any fevers chills or rigors. He still has ongoing difficulty in breathing but better than the time of admission. He denies having any cough. No abdominal pain nausea vomiting or diarrhea. No dysuria or hematuria. On reviewing the vitals patient's T-max of 98.5, heart rate 60, respiratory 16, blood pressure 139 with 67 and saturating at 94% on 2 L of nasal cannula. From this morning. Patient's blood sugars have been running high around 300s possibly due to steroids that he is on. On 02/13/2021 -patient was seen and examined at bedside. Patient states that he is difficulty in breathing is improving and he is saturating at 94% on 2 L of oxygen. Patient denies having any fevers chills or rigors T-max of 98.3. Patient's blood pressure 140 x 72. He denies having any abdominal pain nausea vomiting or diarrhea. No dysuria or hematuria. He continues to be on dexamethasone, Lovenox, remdesivir, zinc, vitamin C. On reviewing his labs from this morning white count of 10.1, hemoglobin 13.7, platelets 308. D-dimer 2.02. Sodium 142, potassium 4.2, chloride 105, bicarb 28, BUN 26, creatinine 0.7. Active Medications Acetaminophen (Acetaminophen Tab 325 Mg Tab) 650 mg PO Q6HR PRN PRN Reason: Mild Pain or Fever > 100.5 Last Admin: 02/11/21 02:08 Dose: 650 mg Documented by: Ascorbic Acid (Ascorbic Acid 500 Mg Tab) 500 mg PO BID [facility] Last Admin: 02/13/21 20:41 Dose: 500 mg Documented by: Atorvastatin Calcium (Atorvastatin 20 Mg Tab) 20 mg PO DAILY [facility] Last Admin: 02/13/21 08:08 Dose: 20 mg Documented by: Budesonide/Formoterol Fumarate (Symbicort 160-4.5 Mcg Inhaler) 2 puff INHALATION RT-DAILY [facility] Last Admin: 02/13/21 09:02 Dose: 2 puff Documented by: Cholecalciferol (Cholecalciferol 25 Mcg (1000 Iu) Tablet) 25 mcg PO DAILY [facility] Last Admin: 02/13/21 08:07 Dose: 25 mcg Documented by: Dexamethasone (Dexamethasone 2 Mg Tab) 6 mg PO DAILY [facility] Last Admin: 02/13/21 08:07 Dose: 6 mg Documented by: Enoxaparin Sodium (Enoxaparin 40 Mg/0.4 Ml Syringe) 40 mg SQ DAILY [facility] Last Admin: 02/13/21 08:07 Dose: 40 mg Documented by: Famotidine (Famotidine 20 Mg Tab) 20 mg PO BID [facility] Last Admin: 02/13/21 20:41 Dose: 20 mg Documented by: Glimepiride (Glimepiride 4 Mg Tab) 8 mg PO DAILY [facility] Last Admin: 02/13/21 08:08 Dose: 8 mg Documented by: Guaifenesin/Dextromethorphan (Guaifenesin-Dm 100-10mg/5ml 10 Ml Cup) 10 ml PO Q6H PRN PRN Reason: Cough Sodium Chloride (Saline 0.9%) 1,000 mls @ 75 mls/hr IV .[id number] [facility] Last Admin: 02/13/21 16:35 Dose: Not Given Documented by: Remdesivir 100 mg/ Sodium (Chloride) 250 mls @ 250 mls/hr IVPB DAILY@1400 [facility] Stop: 02/16/21 14:59 Last Admin: 02/13/21 14:35 Dose: 250 mls/hr Documented by: Insulin Aspart (Insulin Aspart (Novolog) 100 Unit/Ml Vial) 0 unit SQ ACHS [facility]; Protocol Last Admin: 02/13/21 20:41 Dose: 3 unit Documented by: Insulin Detemir (Insulin Detemir (Levemir) 100 Unit/Ml Syr) 15 unit SQ HS [facility] Last Admin: 02/13/21 20:42 Dose: 15 unit Documented by: Naloxone HCl (Naloxone 0.4 Mg/Ml 1 Ml Vial) 0.2 mg IV Q2M PRN PRN Reason: Opioid Reversal Venlafaxine HCl (Venlafaxine Hcl 75 Mg Tab) 75 mg PO TID [facility] Last Admin: 02/13/21 17:14 Dose: 75 mg Documented by: Zinc Sulfate (Zinc Sulfate 220 Mg Cap) 220 mg PO DAILY [facility] Last Admin: 02/13/21 08:07 Dose: 220 mg Documented by: Objective - Vital Signs Vital signs: Vital Signs Temp 98.0 F 02/13/21 09:47 Pulse 75 02/13/21 09:47 Resp 20 02/13/21 09:47 BP 140/72 02/13/21 09:47 Pulse Ox 94 L 02/13/21 09:47 Intake & Output 02/12/21 02/13/21 02/13/21 18:59 06:59 18:59 Intake Total 250 Balance 250 Intake: Oral 250 Other: # Voids 3 - Labs CBC & Chem 7: 02/13/21 06:17 02/13/21 06:17 Labs: Abnormal Lab Results - Last 24 Hours (Table) 02/12/21 02/12/21 02/13/21 Range/Units 16:27 20:18 06:17 WBC 10.12 H (4.50-10.00) X 10*3/uL Immature Gran # 0.08 H (0.00-0.04) X 10*3/uL Neutrophils # 7.78 H (1.80-7.70) X 10*3/uL Eosinophils # 0.01 L (0.04-0.35) X 10*3/uL D-Dimer (<0.60) mg/L FEU BUN/Creatinine Ratio (12.00-20.00) Ratio POC Glucose (mg/dL) 282 H 335 H (75-99) mg/dL 02/13/21 02/13/21 02/13/21 Range/Units 06:17 07:57 11:29 WBC (4.50-10.00) X 10*3/uL Immature Gran # (0.00-0.04) X 10*3/uL Neutrophils # (1.80-7.70) X 10*3/uL Eosinophils # (0.04-0.35) X 10*3/uL D-Dimer 2.02 H (<0.60) mg/L FEU BUN/Creatinine Ratio 37.14 H (12.00-20.00) Ratio POC Glucose (mg/dL) 117 H (75-99) mg/dL Assessment and Plan Assessment: ASSESSMENT COVID-19 pneumonia Hypovolemic hyponatremia Type 2 diabetes mellitus poorly controlled due to steroids Hypertension Hyperlipidemia Asthma without any acute exacerbation GI DVT prophylaxis Plan: Patient to be continued on remdesivir, Decadron, Lovenox, zinc and vitamin C supplements. Will adjust the dose of insulin depending upon his blood sugars. Chest x-ray done this morning showing bilateral airspace disease slightly increased.Encouraged to continue using incentive spirometry. Continue with the rest of his current medication regimen. Further recommendations to follow depending on the progress of the patient.
[2021-02-14 07:17] LABS: Glucose,Whole Blood 76 mg/dL (75-99)
[2021-02-14] MEDS: INSULIN ASPART (NovoLOG) 100 UNIT/ML VIAL SQ SCH ×7 (07:25→21:02)
[2021-02-14] MEDS: GLIMEPIRIDE 4 MG TAB PO SCH (08:26)
[2021-02-14] MEDS: ASCORBIC ACID 500 MG TAB PO SCH ×2 (08:26→21:02)
[2021-02-14] MEDS: CHOLECALCIFEROL 25 MCG (1000 IU) TABLET PO SCH (08:26)
[2021-02-14] MEDS: ZINC SULFATE 220 MG CAP PO SCH (08:26)
[2021-02-14] MEDS: dexAMETHasone 2 MG TAB PO SCH (08:26)
[2021-02-14] MEDS: ATORVASTATIN 20 MG TAB PO SCH (08:26)
[2021-02-14] MEDS: ENOXAPARIN 40 MG/0.4 ML SYRINGE SQ SCH (08:26)
[2021-02-14] MEDS: FAMOTIDINE 20 MG TAB PO SCH ×2 (08:26→21:02)
[2021-02-14] MEDS: VENLAFAXINE HCL 75 MG TAB PO SCH ×3 (08:27→21:02)
[2021-02-14] MEDS: SYMBICORT 160-4.5 MCG INHALER INHALATION SCH (08:32)
[2021-02-14] MEDS: ACETAMINOPHEN TAB 325 MG TAB PO PRN (10:32)
[2021-02-14 11:47] LABS: Glucose,Whole Blood 154 mg/dL (75-99)
--- NOTE | 2021-02-14 13:46 | P.PN ---
Subjective Progress Note Date: 02/14/21 This is a very pleasant 70-year-old gentleman who follows with Dr. Knapp as his primary care provider. He has a history of mild intermittent chronic bronchial asthma, diabetes mellitus, hyperlipidemia, hypertension, depression. Lifelong nonsmoker. He presented to the emergency room yesterday with a six-day history of shortness of breath, generalized weakness, cough and congestion. He did receive the [employer] vaccine on 01/22/2021. He tested positive for chlamydia 02/05/2021. Chest x-ray reveals lateral right upper lobe patchy infiltrate. CT angiogram ruled out pulmonary embolism. There is patchy bilateral groundglass interstitial pulmonary infiltrates noted. White count 7.2. Hemoglobin 14.6. Lymphocytes 0.9. D-dimer 1.50. Sodium 13. Potassium 3.7. Creatinine 0.85. LDH 885. C-reactive protein 56.8. Pro-calcitonin 0.46. 0.9 normal saline at 75 ML's per hour. He is seen today in consultation on the regular medical floor. He is quite hoarse and weak. He is currently sitting up in bed with his oxygen off. Room air O2 saturation 92%. 02/12/2021, the patient is being seen for a follow-up. This patient was hospitalized for an acute hypoxic respiratory failure secondary to COVID 19 related pneumonia. Noted the patient did receive the [employer] vacc ination on 01/22/2021. The patient had hypoxic respiratory failure and elevated inflammatory markers. Comorbid conditions include diabetes and hypertension and mild asthma. For now, the patient is on oxygen at 2 L per minute nasal cannula. The CT angios the chest showed patchy bilateral groundglass pulmonary infiltrates and there was no evidence of any pulmonary embolism. The patient has a maintained on Decadron 6 mg by mouth daily. The patient is on Levemir insulin 15 units at bedtime in addition to a NovoLog sliding scale coverage. The patient on normal saline today to 75 mL an hour. The patient is on Lovenox 40 mg subcu for DVT prophylaxis.. Pro-calcitonin at time of admission was 0.46. No abnormalities in the LFTs. CRP was 56 with a LDH of 885. On today's evaluation of 02/13/2021, the patient is being seen for follow-up. Today the patient is on oxygen at 2 L per minute nasal cannula and the patient is being treated with steroids and the patient is currently on Decadron 6 mg by mouth daily. The patient was also started on REM yesterday and the patient is day #2 of treatment. No side effects of the treatment. The patient has no complaints. Inflammatory markers from today has not been checked. There were done at time of admission. The rest of the blood work is all within normal limits. White secondary causes at 10.1. She is afebrile. She is on Levemir insulin 15 units along with a scale. No major changes condition. Chest x-ray from yesterday was noted that repeat chest x-ray from today has not been done. 02/14/2021, the patient is being seen for a follow-up. He remains on Decadron for Covid 19 related pneumonia. He is also on REM and he is on day #3. He is resting comfortably in bed. Occasional cough. No significant sputum production. A repeat chest x-ray was done today and the chest x-ray showing peripheral pulmonary infiltrates most on the right compared to the left and the findings are essentially stable and unchanged. He is to start spiking a temperature with a T-max of 100.6. His inflammatory markers are pending from today. Blood work in fact is also pending from today. He is on Levemir insulin for blood sugar control. He is receiving 15 units along with 5 units of NovoLog with meals. Objective - Vital Signs Vital signs: Vital Signs Temp 98.5 F 02/14/21 11:11 Pulse 86 02/14/21 10:14 Resp 20 02/14/21 10:14 BP 141/73 02/14/21 10:14 Pulse Ox 92 L 02/14/21 10:14 Intake & Output 02/13/21 02/14/21 02/14/21 18:59 06:59 18:59 Intake Total 1330 1000 Balance 1330 1000 Intake: Oral 1330 1000 Other: Voiding Method Toilet # Voids 3 2 - Exam GENERAL EXAM: Alert, pleasant 70-year-old gentleman, on room air, comfortable in no apparent distress, and the patient is on RA HEAD: Normocephalic. EYES: Normal reaction of pupils, equal size. NOSE: Clear with pink turbinates. THROAT: No erythema or exudates. NECK: No masses, no JVD. CHEST: No chest wall deformity. LUNGS: Equal air entry with few scattered rhonchi, crackles in the posterior bases CVS: S1 and S2 normal with no audible murmur, regular rhythm. ABDOMEN: No hepatosplenomegaly, normal bowel sounds, no guarding or rigidity. SPINE: No scoliosis or deformity SKIN: No rashes CENTRAL NERVOUS SYSTEM: No focal deficits, tone is normal in all 4 extremities. EXTREMITIES: There is no peripheral edema. No clubbing, no cyanosis. Peripheral pulses are intact. - Labs CBC & Chem 7: 02/13/21 06:17 02/13/21 06:17 Labs: Abnormal Lab Results - Last 24 Hours (Table) 02/13/21 02/13/21 02/14/21 Range/Units 16:39 20:26 07:02 D-Dimer 3.42 H (<0.60) mg/L FEU POC Glucose (mg/dL) 247 H 243 H (75-99) mg/dL 02/14/21 Range/Units 11:43 D-Dimer (<0.60) mg/L FEU POC Glucose (mg/dL) 154 H (75-99) mg/dL Assessment and Plan Plan: 1 Acute hypoxemic respiratory failure secondary to acute CoVID 19 pneumonia. The patient did receive the [employer] vaccine on 01/22/2021, the patient is currently on RA, the patient has been off the oxygen since yesterday. He is ambulating.. The patient on Decadron. . Mild elevation of the inflammatory markers. The patient tested positive for Covid 19 infection on 02/05/2021. Clinically the patient is stable. No significant deterioration while being on Decadron and REM. Is on REM day #3. His oxygenation is improved and the patient is currently on room air oxygen since yesterday. 2 Elevated inflammatory markers secondary to above 3 Diabetes mellitus, currently on Levemir insulin for blood sugar control in addition to a sliding scale coverage. 4 Hypertension 5 Mild intermittent chronic bronchial asthma 6 Depression 7 Lifelong nonsmoker Plan: We will continue with dexamethasone, Lovenox, vitamin supplements Remdesivir per protocol, currently on day #3 of treatment Continue bronchodilators, RA oxygen Possible home within the 24 hours. I do not see the need to complete the REM treatment unless the patient stays in the hospital. His chest x-ray findings are stable from today. He is on room air oxygen. He still having a low fever for which he is taking Tylenol. Possible home either today or tomorrow. We'll discuss this with the medical team.
[2021-02-14 14:44] LABS: C Reactive Protein 5.1 mg/dL (0.0-0.8)
[2021-02-14] MEDS: REMDESIVIR 100 MG in SODIUM CHLORIDE 0.9% 250 ML IVPB SCH (15:04)
--- NOTE | 2021-02-14 15:04 | XR ---
EXAMINATION TYPE: XR chest 1V portable DATE OF EXAM: 02/14/2021 COMPARISON: 02/13/2021 INDICATION: Short of breath follow-up COVID TECHNIQUE: Single frontal view of the chest is obtained. FINDINGS: The heart size is normal. The pulmonary vasculature is normal. Mild diffuse infiltrates in the periphery of the right lung. Milder infiltrate is on the left. There may be slight improvement over the interval IMPRESSION: 1. Peripheral infiltrates are nonspecific but can be compatible with atypical pneumonia.
[2021-02-14 17:18] LABS: Glucose,Whole Blood 294 mg/dL (75-99)
[2021-02-14] MEDS: SODIUM CHLORIDE 0.9% 1,000 ML IV SCH (17:24)
[2021-02-14 20:23] LABS: Glucose,Whole Blood 307 mg/dL (75-99)
[2021-02-14] MEDS: INSULIN DETEMIR (LEVEMIR) 100 UNIT/ML SYR SQ SCH (21:02)
--- NOTE | 2021-02-15 00:23 | P.PN ---
Subjective Progress Note Date: 02/14/21 Principal diagnosis: COVID Pneumonia Mr. Urban is a 70-year-old white male patient presents to the emergency room with 6 days of generalized weakness. Patient with a history of asthma, diabetes, high cholesterol, and hypertension. Patient states he lives with his both received the [employer] covid vaccine [facility] on [facility]. Patient states has been not feeling well and seemed primary doctor Radha on Friday and was told "covid positive" on 02/05, patient's symptoms started on 02/04. Patient states for the past week has not been taking his medications as prescribed. Patient states fever as high as 103, has been taking Tylenol and Motrin alternating with last dose 3 hours ago but cannot recall Tylenol or Motrin was taken. Patient denies chest pain, states has a productive cough "musky" in color. Patient denies hemoptysis. Patient states decrease in appetite for past 6 days. Patient states feels increasingly weak and that's why he came in today. Patient states also complaining of cough but does not have a fever or weakness. Patient is presently in 2 L of oxygen. Patient had a CT of the chest which did not show any PE but did show significant bilateral infiltrates consistent with the Covid 19 pneumonia. On 02/12/2021 -patient was seen and examined at bedside. He is comfortably sitting up in a chair by the bedside appears to be in no acute distress. Patient complains of generalized weakness and fatigue. He denies having any fevers chills or rigors. He still has ongoing difficulty in breathing but better than the time of admission. He denies having any cough. No abdominal pain nausea vomiting or diarrhea. No dysuria or hematuria. On reviewing the vitals patient's T-max of 98.5, heart rate 60, respiratory 16, blood pressure 139 with 67 and saturating at 94% on 2 L of nasal cannula. From this morning. Patient's blood sugars have been running high around 300s possibly due to steroids that he is on. On 02/13/2021 -patient was seen and examined at bedside. Patient states that he is difficulty in breathing is improving and he is saturating at 94% on 2 L of oxygen. Patient denies having any fevers chills or rigors T-max of 98.3. Patient's blood pressure 140 x 72. He denies having any abdominal pain nausea vomiting or diarrhea. No dysuria or hematuria. He continues to be on dexamethasone, Lovenox, remdesivir, zinc, vitamin C. On reviewing his labs from this morning white count of 10.1, hemoglobin 13.7, platelets 308. D-dimer 2.02. Sodium 142, potassium 4.2, chloride 105, bicarb 28, BUN 26, creatinine 0.7. On 02/14/2021-no acute events reported by nursing staff. Patient is comfortably lying in bed appears to be no acute distress. He complains of ongoing cough which is dry in nature. Patient denies having any abdominal pain nausea vomiting or diarrhea. No dysuria or hematuria. On reviewing his vitals T-max 100.6 this morning., Heart rate in 70s to 80s, blood pressure 131/96, saturating at 92% on room air. On reviewing the labs D-dimer of 3.42, LDH 327, CRP 5.1. Active Medications Acetaminophen (Acetaminophen Tab 325 Mg Tab) 650 mg PO Q6HR PRN PRN Reason: Mild Pain or Fever > 100.5 Last Admin: 02/14/21 10:32 Dose: 650 mg Documented by: Ascorbic Acid (Ascorbic Acid 500 Mg Tab) 500 mg PO BID [facility] Last Admin: 02/14/21 21:02 Dose: 500 mg Documented by: Atorvastatin Calcium (Atorvastatin 20 Mg Tab) 20 mg PO DAILY [facility] Last Admin: 02/14/21 08:26 Dose: 20 mg Documented by: Budesonide/Formoterol Fumarate (Symbicort 160-4.5 Mcg Inhaler) 2 puff INHALATI ON RT-DAILY [facility] Last Admin: 02/14/21 08:32 Dose: 2 puff Documented by: Cholecalciferol (Cholecalciferol 25 Mcg (1000 Iu) Tablet) 25 mcg PO DAILY [facility] Last Admin: 02/14/21 08:26 Dose: 25 mcg Documented by: Dexamethasone (Dexamethasone 2 Mg Tab) 6 mg PO DAILY [facility] Last Admin: 02/14/21 08:26 Dose: 6 mg Documented by: Enoxaparin Sodium (Enoxaparin 40 Mg/0.4 Ml Syringe) 40 mg SQ DAILY [facility] Last Admin: 02/14/21 08:26 Dose: 40 mg Documented by: Famotidine (Famotidine 20 Mg Tab) 20 mg PO BID [facility] Last Admin: 02/14/21 21:02 Dose: 20 mg Documented by: Glimepiride (Glimepiride 4 Mg Tab) 8 mg PO DAILY [facility] Last Admin: 02/14/21 08:26 Dose: 8 mg Documented by: Guaifenesin/Dextromethorphan (Guaifenesin-Dm 100-10mg/5ml 10 Ml Cup) 10 ml PO Q6H PRN PRN Reason: Cough Sodium Chloride (Saline 0.9%) 1,000 mls @ 75 mls/hr IV .[id number] [facility] Last Admin: 02/14/21 17:24 Dose: 75 mls/hr Documented by: Remdesivir 100 mg/ Sodium (Chloride) 250 mls @ 250 mls/hr IVPB DAILY@1400 [facility] Stop: 02/16/21 14:59 Last Admin: 02/14/21 15:04 Dose: 250 mls/hr Documented by: Insulin Aspart (Insulin Aspart (Novolog) 100 Unit/Ml Vial) 0 unit SQ ACHS [facility]; Protocol Last Admin: 02/14/21 21:02 Dose: 5 unit Documented by: Insulin Aspart (Insulin Aspart (Novolog) 100 Unit/Ml Vial) 5 unit SQ AC-TID [facility] Last Admin: 02/14/21 17:23 Dose: 5 unit Documented by: Insulin Detemir (Insulin Detemir (Levemir) 100 Unit/Ml Syr) 15 unit SQ HS [facility] Last Admin: 02/14/21 21:02 Dose: 15 unit Documented by: Naloxone HCl (Naloxone 0.4 Mg/Ml 1 Ml Vial) 0.2 mg IV Q2M PRN PRN Reason: Opioid Reversal Venlafaxine HCl (Venlafaxine Hcl 75 Mg Tab) 75 mg PO TID [facility] Last Admin: 02/14/21 21:02 Dose: 75 mg Documented by: Zinc Sulfate (Zinc Sulfate 220 Mg Cap) 220 mg PO DAILY [facility] Last Admin: 02/14/21 08:26 Dose: 220 mg Documented by: Objective - Vital Signs Vital signs: Vital Signs Temp 98.5 F 02/14/21 11:11 Pulse 86 02/14/21 10:14 Resp 20 02/14/21 10:14 BP 141/73 02/14/21 10:14 Pulse Ox 92 L 02/14/21 10:14 Intake & Output 0302/14/21 02/14/21 18:59 06:59 18:59 Intake Total 1330 1000 Balance 1330 1000 Intake: Oral 1330 1000 Other: Voiding Method Toilet # Voids 3 2 - Exam PHYSICAL EXAMINATION: GENERAL: The patient is alert and oriented x3, not in any acute distress. Well developed, well nourished. HEENT: Pupils are round and equally reacting to light. EOMI. No scleral icterus. CARDIOVASCULAR: S1 and S2 present. PULMONARY: Bilateral coarse breath sounds, few posterior crackles ABDOMEN: Soft, nontender, nondistended, normoactive bowel sounds. MUSCULOSKELETAL: No joint swelling or deformity. EXTREMITIES: No cyanosis, clubbing, or pedal edema. NEUROLOGICAL: Gross neurological examination did not reveal any focal deficits. - Labs CBC & Chem 7: 02/13/21 06:17 02/13/21 06:17 Labs: Abnormal Lab Results - Last 24 Hours (Table) 02/13/21 02/13/21 02/14/21 Range/Units 16:39 20:26 07:02 D-Dimer 3.42 H (<0.60) mg/L FEU POC Glucose (mg/dL) 247 H 243 H (75-99) mg/dL Lactate Dehydrogenase (120-246) U/L C-Reactive Protein (0.0-0.8) mg/dL 02/14/21 02/14/21 Range/Units 07:02 11:43 D-Dimer (<0.60) mg/L FEU POC Glucose (mg/dL) 154 H (75-99) mg/dL Lactate Dehydrogenase 327 H (120-246) U/L C-Reactive Protein 5.1 H (0.0-0.8) mg/dL Assessment and Plan Assessment: ASSESSMENT COVID-19 pneumonia Hypovolemic hyponatremia Type 2 diabetes mellitus poorly controlled due to steroids Hypertension Hyperlipidemia Asthma without any acute exacerbation GI DVT prophylaxis Plan: Patient to be continued on remdesivir, Decadron, Lovenox, zinc and vitamin C supplements. Patient's blood sugars have been running high, he has been getting 15 units of Lantus nightly and sliding scale of insulin. Started him on 5 units of TIDAC NovoLog. Will adjust the dose of insulin depending upon his blood sugars. Continue with the rest of his current medication regimen. Will monitor inflammtory markers and CXR. Further recommendations to follow depending on the progress of the patient.
--- NOTE | 2021-02-15 07:24 | XR ---
EXAMINATION TYPE: XR chest 1V portable DATE OF EXAM: 02/15/2021 HISTORY: Shortness of breath. COMPARISON: 02/14/2021 TECHNIQUE: Single view of the chest is submitted. FINDINGS: Demonstrated are scattered senescent parenchymal change. Mild progression of scattered airspace infiltrates noted. The heart is stable. Hilar and mediastinal structures are within normal limits. Degenerative changes are seen of the dorsal spine. IMPRESSION: 1. Mild progression of scattered airspace infiltrates noted.
[2021-02-15 07:32] LABS: Glucose,Whole Blood 84 mg/dL (75-99)
[2021-02-15] MEDS: SODIUM CHLORIDE 0.9% 1,000 ML IV SCH (07:48)
[2021-02-15] MEDS: FAMOTIDINE 20 MG TAB PO SCH (07:56)
[2021-02-15] MEDS: CHOLECALCIFEROL 25 MCG (1000 IU) TABLET PO SCH (07:57)
[2021-02-15] MEDS: ZINC SULFATE 220 MG CAP PO SCH (07:57)
[2021-02-15] MEDS: ATORVASTATIN 20 MG TAB PO SCH (07:57)
[2021-02-15] MEDS: ASCORBIC ACID 500 MG TAB PO SCH (07:57)
[2021-02-15] MEDS: dexAMETHasone 2 MG TAB PO SCH (07:57)
[2021-02-15] MEDS: ENOXAPARIN 40 MG/0.4 ML SYRINGE SQ SCH (07:58)
[2021-02-15] MEDS: VENLAFAXINE HCL 75 MG TAB PO SCH (07:58)
[2021-02-15] MEDS: GLIMEPIRIDE 4 MG TAB PO SCH (07:58)
[2021-02-15] MEDS: INSULIN ASPART (NovoLOG) 100 UNIT/ML VIAL SQ SCH ×4 (07:59→12:27)
[2021-02-15] MEDS: SYMBICORT 160-4.5 MCG INHALER INHALATION SCH (08:21)
[2021-02-15 10:58] VITALS: RESP 20
[2021-02-15 11:01] LABS: Basophils # (A) 0.03 X 10*3/uL (0.00-0.10); Basophils % (A) 0.3 %; Eosinophils # (A) 0.04 X 10*3/uL (0.04-0.35); Eosinophils % (A) 0.4 %; HCT 40.8 % (39.6-50.0); HGB 13.3 g/dL (13.0-17.0); Lymphocytes # (A) 1.32 X 10*3/uL (0.90-5.00); Lymphocytes % (A) 13.4 %; MCH 29.9 pg (27.0-32.0); MCHC 32.6 g/dL (32.0-37.0); MCV 91.7 fL (80.0-97.0); Monocytes # (A) 0.95 X 10*3/uL (0.20-1.00); Monocytes % (A) 9.6 %; Neutrophils # (A) 7.41 X 10*3/uL (1.80-7.70); Platelet Count 375 X 10*3/uL (140-440); RBC 4.45 X 10*6/uL (4.40-5.60); RDW 13.1 % (11.5-14.5); WBC 9.88 X 10*3/uL (4.50-10.00)
[2021-02-15 11:52] LABS: African American GFR (CKD) 111.6 (60.0-200.0); Anion Gap 6.7 mmol/L (4.00-12.00); Calcium 9.1 mg/dL (8.7-10.3); Carbon Dioxide 28.3 mmol/L (21.6-31.8); Non-African American GFR(CKD) 96.3 (60.0-200.0); Potassium 4.1 mmol/L (3.5-5.5)
[2021-02-15 11:58] LABS: Glucose,Whole Blood 124 mg/dL (75-99)
[2021-02-15] MEDS: REMDESIVIR 100 MG in SODIUM CHLORIDE 0.9% 250 ML IVPB SCH (12:27)
--- NOTE | 2021-02-15 14:01 | P.PN ---
Subjective Progress Note Date: 02/15/21 This is a very pleasant 70-year-old gentleman who follows with Dr. Knapp as his primary care provider. He has a history of mild intermittent chronic bronchial asthma, diabetes mellitus, hyperlipidemia, hypertension, depression. Lifelong nonsmoker. He presented to the emergency room yesterday with a six-day history of shortness of breath, generalized weakness, cough and congestion. He did receive the Chandrakant & Chandrakant vaccine on 01/22/2021. He tested positive for chlamydia 02/05/2021. Chest x-ray reveals lateral right upper lobe patchy infiltrate. CT angiogram ruled out pulmonary embolism. There is patchy bilateral groundglass interstitial pulmonary infiltrates noted. White count 7.2. Hemoglobin 14.6. Lymphocytes 0.9. D-dimer 1.50. Sodium 13. Potassium 3.7. Creatinine 0.85. LDH 885. C-reactive protein 56.8. Pro-calcitonin 0.46. 0.9 normal saline at 75 ML's per hour. He is seen today in consultation on the regular medical floor. He is quite hoarse and weak. He is currently sitting up in bed with his oxygen off. Room air O2 saturation 92%. 02/12/2021, the patient is being seen for a follow-up. This patient was hospitalized for an acute hypoxic respiratory failure secondary to COVID 19 related pneumonia. Noted the patient did receive the Chandrakant & Chandrakant vaccin ation on 01/22/2021. The patient had hypoxic respiratory failure and elevated inflammatory markers. Comorbid conditions include diabetes and hypertension and mild asthma. For now, the patient is on oxygen at 2 L per minute nasal cannula. The CT angios the chest showed patchy bilateral groundglass pulmonary infiltrates and there was no evidence of any pulmonary embolism. The patient has a maintained on Decadron 6 mg by mouth daily. The patient is on Levemir insulin 15 units at bedtime in addition to a NovoLog sliding scale coverage. The patient on normal saline today to 75 mL an hour. The patient is on Lovenox 40 mg subcu for DVT prophylaxis.. Pro-calcitonin at time of admission was 0.46. No abnormalities in the LFTs. CRP was 56 with a LDH of 885. On today's evaluation of 02/13/2021, the patient is being seen for follow-up. Today the patient is on oxygen at 2 L per minute nasal cannula and the patient is being treated with steroids and the patient is currently on Decadron 6 mg by mouth daily. The patient was also started on REM yesterday and the patient is day #2 of treatment. No side effects of the treatment. The patient has no complaints. Inflammatory markers from today has not been checked. There were done at time of admission. The rest of the blood work is all within normal limits. White secondary causes at 10.1. She is afebrile. She is on Levemir insulin 15 units along with a scale. No major changes condition. Chest x-ray from yesterday was noted that repeat chest x-ray from today has not been done. 02/14/2021, the patient is being seen for a follow-up. He remains on Decadron for Covid 19 related pneumonia. He is also on REM and he is on day #3. He is resting comfortably in bed. Occasional cough. No significant sputum production. A repeat chest x-ray was done today and the chest x-ray showing peripheral pulmonary infiltrates most on the right compared to the left and the findings are essentially stable and unchanged. He is to start spiking a temperature with a T-max of 100.6. His inflammatory markers are pending from today. Blood work in fact is also pending from today. He is on Levemir insulin for blood sugar control. He is receiving 15 units along with 5 units of NovoLog with meals. On 02/15/2021 patient seen in follow-up on medical surgical floor, he is off the oxygen, his pulse ox is 91, he is breathing comfortably, she has been off the oxygen for last 36 hours, denies any acute complaints, no fever chills, vital signs are stable, breathing comfortably, minimal crackles on today's exam. Today is day 4 of his Remdesivir treatment, he remains on Decadron, IV fluids, low-dose Lovenox, today's labs have been reviewed showing improving d-dimer down to 2.57, electrolytes within normal limits, no inflammatory markers were drawn today, however they were improving on yesterday's labs compared to admission labs ` Objective - Vital Signs Vital signs: Vital Signs Temp 98.6 F 02/15/21 10:57 Pulse 80 02/15/21 10:57 Resp 20 02/15/21 10:57 BP 134/75 02/15/21 10:57 Pulse Ox 91 L 02/15/21 10:57 Intake & Output 02/14/21 02/15/21 02/15/21 18:59 06:59 18:59 Intake Total 1000 Balance 1000 Intake: Oral 1000 Other: Voiding Method Toilet Toilet Toilet # Voids 2 - Exam GENERAL EXAM: Alert, very pleasant, 70-year-old white male, on room air, with a pulse ox of 91% comfortable in no apparent distress. HEAD: Normocephalic/atraumatic. EYES: Normal reaction of pupils, equal size. Conjunctiva pink, sclera white. NOSE: Clear with pink turbinates. THROAT: No erythema or exudates. NECK: No masses, no JVD, no thyroid enlargement, no adenopathy. CHEST: No chest wall deformity. Symmetrical expansion. LUNGS: Equal air entry with minimal crackles, wheeze, rhonchi or dullness. CVS: Regular rate and rhythm, normal S1 and S2, no gallops, no murmurs, no rubs ABDOMEN: Soft, nontender. No hepatosplenomegaly, normal bowel sounds, no guarding or rigidity. EXTREMITIES: No clubbing, no edema, no cyanosis, 2+ pulses and upper and lower extremities. MUSCULOSKELETAL: Muscle strength and tone normal. SPINE: No scoliosis or deformity SKIN: No rashes CENTRAL NERVOUS SYSTEM: Alert and oriented -3. No focal deficits, tone is normal in all 4 extremities. PSYCHIATRIC: Alert and oriented -3. Appropriate affect. Intact judgment and insight. - Labs CBC & Chem 7: 02/15/21 07:47 02/15/21 07:47 Labs: Abnormal Lab Results - Last 24 Hours (Table) 02/14/21 02/14/21 02/14/21 Range/Units 07:02 17:01 20:20 Immature Gran # (0.00-0.04) X 10*3/uL D-Dimer (<0.60) mg/L FEU BUN/Creatinine Ratio (12.00-20.00) Ratio POC Glucose (mg/dL) 294 H 307 H (75-99) mg/dL Lactate Dehydrogenase 327 H (120-246) U/L C-Reactive Protein 5.1 H (0.0-0.8) mg/dL 02/15/21 02/15/21 02/15/21 Range/Units 07:47 07:47 07:47 Immature Gran # 0.13 H (0.00-0.04) X 10*3/uL D-Dimer 2.57 H (<0.60) mg/L FEU BUN/Creatinine Ratio 30.00 H (12.00-20.00) Ratio POC Glucose (mg/dL) (75-99) mg/dL Lactate Dehydrogenase (120-246) U/L C-Reactive Protein (0.0-0.8) mg/dL 02/15/21 Range/Units 11:48 Immature Gran # (0.00-0.04) X 10*3/uL D-Dimer (<0.60) mg/L FEU BUN/Creatinine Ratio (12.00-20.00) Ratio POC Glucose (mg/dL) 124 H (75-99) mg/dL Lactate Dehydrogenase (120-246) U/L C-Reactive Protein (0.0-0.8) mg/dL Assessment and Plan Plan: Assessment: 1 Acute hypoxemic respiratory failure secondary to acute CoVID 19 pneumonia. The patient did receive the Chandrakant & Chandrakant vaccine on 01/22/2021, the patient is currently on RA, the patient has been off the oxygen since yesterday. He is ambulating.. The patient on Decadron. . Mild elevation of the inflammatory markers. The patient tested positive for Covid 19 infection on 02/05/2021. C linically the patient is stable. No significant deterioration while being on Decadron and REM. Is on REM day #4. His oxygenation is improved and the patient is currently on room air oxygen since 02/13/2021 2 Elevated inflammatory markers secondary to above, improving 3 Diabetes mellitus, currently on Levemir insulin for blood sugar control in addition to a sliding scale coverage. 4 Hypertension 5 Mild intermittent chronic bronchial asthma 6 Depression 7 Lifelong nonsmoker Plan: Patient can receive his fourth dose of Remdesivir today and be considered for discharge, his been on room air maintaining stable O2 saturations above 90% for last 36 hours, clinically stable, his been afebrile overnight, his inflammatory markers have improved since admission, d-dimer is trending down, from pulmonary perspective patient is clear for discharge, and he can complete outpatient course of oral Decadron for total of 10 days and follow-up in the outpatient setting with Dr. Correa in in 2 weeks I performed a history & physical examination of the patient and discussed their management with my nurse practitioner, Yaquelin Charles. I reviewed the nurse practitioner's note and agree with the documented findings and plan of care. Lung sounds are positive for min crackles The findings and the impression was discussed with the patient. I attest to the documentation by the nurse practiti david. Time with Patient: Less than 30
[2021-02-15 14:47] VITALS: BMI 30.9
[2021-02-15 15:02] VITALS: BP 134/69; PULSE 76; TEMP 97.7
[2021-02-16 16:28] LABS: Hemoglobin A1C 8.2 % (4.0-6.0)
--- NOTE | 2021-02-16 16:34 | P.DS ---
Providers Date of admission: 02/10/21 19:26 Expected date of discharge: 02/15/21 Attending physician: Chago Nathan Consults: 02/10/21 19:25 Consult Physician Routine Consulting Provider: Sundeep Mendez Consult Reason/Comments: COVID PNA Do you want consulting provider notified?: Yes Primary care physician: Sonya Gonzalez [facility] Course: HPI - Mr. Urban is a 70-year-old white male patient presents to the emergency room with 6 days of generalized weakness. Patient with a history of asthma, diabetes, high cholesterol, and hypertension. Patient states he lives w ith his both received the [employer] covid vaccine [facility] on 01/22. Patient states has been not feeling well and seemed primary doctor Radha on Friday and was told "covid positive" on 02/05, patient's symptoms started on 02/04. Patient states for the past week has not been taking his medications as prescribed. Patient states fever as high as 103, has been taking Tylenol and Motrin alternating with last dose 3 hours ago but cannot recall Tylenol or Motrin was taken. Patient denies chest pain, states has a productive cough "musky" in color. Patient denies hemoptysis. Patient states decrease in appetite for past 6 days. Patient states feels increasingly weak and that's why he came in today. Patient states also complaining of cough but does not have a fever or weakness. Patient is presently in 2 L of oxygen. Patient had a CT of the chest which did not show any PE but did show significant bilateral infiltrates consistent with the Covid 19 pneumonia. Hospital course-patient was given Remdesivir, Decadron, Lovenox, zinc and vitamin C supplements for Covid 19 pneumonia. Patient required insulin for his blood sugar control during the hospital stay, as he was on steroids. Patient's respiratory status gradually improved. He received Remdesivir for 4 days. His inflammatory markers have trended down. Patient was saturating about 90% on room air. So he is being discharged home to complete his Decadron course as outpatient. He is also being discharged on insulin 15 units of Lantus. Diabetic education was provided and diabetic supplies have been taking care of. PHYSICAL EXAM Vitals at the time of discharge: Temperature 97.7 heart rate 76, respiratory rate 20, blood pressure 134/69, saturating at 91% on room air. GENERAL: The patient is alert and oriented x3, not in any acute distress. Well developed, well nourished. HEENT: Pupils are round and equally reacting to light. EOMI. No scleral icterus. CARDIOVASCULAR: S1 and S2 present. PULMONARY: Bilateral coarse breath sounds, few posterior crackles ABDOMEN: Soft, nontender, nondistended, normoactive bowel sounds. MUSCULOSKELETAL: No joint swelling or deformity. EXTREMITIES: No cyanosis, clubbing, or pedal edema. NEUROLOGICAL: Gross neurological examination did not reveal any focal deficits. DISCHARGE DIAGNOSIS COVID-19 pneumonia Hypovolemic hyponatremia Type 2 diabetes mellitus poorly controlled due to steroids Hypertension Hyperlipidemia Asthma without any acute exacerbation Follow-up: Discussed in detail about taking Lantus for better blood sugar control as he is on steroids. He is advised to follow-up with his PCP Dr. Correa in 2-3 days. He is being discharged to complete his steroid course for a total of 10 days of Decadron 6 mg daily. He is also advised to follow-up with pulmonary in 1 week. More than 35 minutes spent towards the discharge of the patient Patient Condition at Discharge: Stable Plan - Discharge Summary Discharge Rx Participant: No New Discharge Prescriptions: New Dexamethasone [Decadron] 6 mg PO DAILY 5 Days #5 tablet Insulin Detemir (Levemir) [Levemir] 15 unit SQ HS #2 syr Zinc Sulfate [Orazinc] 220 mg PO DAILY #15 cap Ascorbic Acid [Vitamin C] 500 mg PO BID #30 tab Cholecalciferol [Vitamin D3 (25 Mcg = 1000 Iu)] 25 mcg PO DAILY #15 tablet Continue Mometasone/Formoterol [Dulera 200 Mcg-5 Mcg Inhaler] 2 puff INHALATION RT- DAILY metFORMIN HCL 1,000 mg PO BID Glimepiride [Amaryl] 8 mg PO DAILY Venlafaxine HCl [Effexor] 75 mg PO TID Atorvastatin [Lipitor] 20 mg PO DAILY Lisinopril-Hctz 20-25 mg [Zestoretic 20-25] 1 tab PO DAILY Discharge Medication List Mometasone/Formoterol [Dulera 200 Mcg-5 Mcg Inhaler] 2 puff INHALATION RT-DAILY 10/25/19 [History] Atorvastatin [Lipitor] 20 mg PO DAILY 02/11/21 [History] Glimepiride [Amaryl] 8 mg PO DAILY 02/11/21 [History] Lisinopril-Hctz 20-25 mg [Zestoretic 20-25] 1 tab PO DAILY 02/11/21 [History] Venlafaxine HCl [Effexor] 75 mg PO TID 02/11/21 [History] metFORMIN HCL 1,000 mg PO BID 02/11/21 [History] Ascorbic Acid [Vitamin C] 500 mg PO BID #30 tab 02/15/21 [Rx] Cholecalciferol [Vitamin D3 (25 Mcg = 1000 Iu)] 25 mcg PO DAILY #15 tablet 02/15/21 [Rx] Dexamethasone [Decadron] 6 mg PO DAILY 5 Days #5 tablet 02/15/21 [Rx] Insulin Detemir (Levemir) [Levemir] 15 unit SQ HS #2 syr 02/15/21 [Rx] Zinc Sulfate [Orazinc] 220 mg PO DAILY #15 cap 02/15/21 [Rx] Follow up Appointment(s)/Referral(s): Sonya Gonzalez DO [Primary Care Provider] - 02/20/21 10:20 am (This is a tele health appointment not in the office) Pauline Feldman MD [STAFF PHYSICIAN] - 03/13/21 9:45 am Activity/Diet/Wound Care/Special Instructions: Please call [facility] to get subsequent diabetic supplies: phone #[phone]/fax #[phone] Discharge Disposition: HOME SELF-CARE
== END 2021-02-15 17:14 | disposition home or self-care (01) | DRG 177 ==
LOC: EC 16:04 → 4SSUR 19:26
PROVIDERS: ADMIT Hospitalist; ATTEND Hospitalist
PROC: XW033E5 Introduction of Remdesivir Anti-infective into Peripheral Vein, Percutaneous Approach, New Technology Group 5 (ICD-10-PCS; principal; 2021-02-12)
DX: U07.1 COVID-19 (principal); J12.82 Pneumonia due to coronavirus disease 2019; J96.01 Acute respiratory failure with hypoxia; E87.1 Hypo-osmolality and hyponatremia; E11.65 Type 2 diabetes mellitus with hyperglycemia; I10 Essential (primary) hypertension; E78.5 Hyperlipidemia, unspecified; F32.9 Major depressive disorder, single episode, unspecified; E86.1 Hypovolemia; J45.20 Mild intermittent asthma, uncomplicated; E78.00 Pure hypercholesterolemia, unspecified; T38.0X5A Adverse effect of glucocorticoids and synthetic analogues, initial encounter; Z71.3 Dietary counseling and surveillance; Z79.84 Long term (current) use of oral hypoglycemic drugs; Z79.899 Other long term (current) drug therapy; Z79.51 Long term (current) use of inhaled steroids; Z91.14 Patient's other noncompliance with medication regimen; Z86.19 Personal history of other infectious and parasitic diseases; Z91.048 Other nonmedicinal substance allergy status; Z80.9 Family history of malignant neoplasm, unspecified
CPT/HCPCS: 36415; 71045; 71275; 80048; 80053; 82728; 83036; 83605; 83615; 83735; 84145; 85025; 85379; 85610; 85730; 86140; 93005; 94640; 94760; 96374; 99285

== ENCOUNTER 2021-09-27 09:28 | Day surgery (SDC) | payer MEDICARE ==
[2021-09-25 10:51] VITALS: BMI 31.5
[~2021-09-27 09:28] MED LIST changes: +HYDROmorphone 0.5 MG/0.5 ML SYRINGE IVP PRN; -LIDOCAINE 1% (10MG/ML) FOR IV START INTRADERMA PRN; +MIDAZOLAM 2 MG/2 ML VIAL IV PRN; +Pre Op ABX Message 1 EACH MISC MISCELLANE ONE
[2021-09-27 10:15] LABS: Glucose,Whole Blood 162 mg/dL (75-99)
[2021-09-27] MEDS ORDERED: ceFAZolin 3 GM in SODIUM CHLORIDE 0.9% 100 ML IVPB ONE (10:16)
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
[2021-09-27 10:37] LABS: Basophils % (A) 1 %; Eosinophils # (A) 0.2 k/uL (0-0.7); Eosinophils % (A) 2 %; HCT 41.5 % (39.0-53.0); HGB 14.4 gm/dL (13.0-17.5); Lymphocytes # (A) 1.2 k/uL (1.0-4.8); Lymphocytes % (A) 16 %; MCH 31.5 pg (25.0-35.0); MCHC 34.6 g/dL (31.0-37.0); MCV 91.1 fL (80.0-100.0); Mean Platelet Volume 8.3; Monocytes # (A) 0.5 k/uL (0-1.0); Monocytes % (A) 6 %; Neutrophils # (A) 5.6 k/uL (1.3-7.7); Neutrophils % (A) 74 %; Platelet Count 253 k/uL (150-450); RBC 4.55 m/uL (4.30-5.90); RDW 13.1 % (11.5-15.5); WBC 7.6 k/uL (3.8-10.6)
[2021-09-27 10:58] LABS: ALT 30 U/L (4-49); AST 26 U/L (17-59); African American GFR (CKD) >90 (>60 ml/min/1.73 sqM); Albumin 4.2 g/dL (3.5-5.0); Alkaline Phosphatase 70 U/L (38-126); Anion Gap 8 mmol/L; Blood Urea Nitrogen 29 mg/dL (9-20); Calcium 9.6 mg/dL (8.4-10.2); Carbon Dioxide 27 mmol/L (22-30); Chloride 104 mmol/L (98-107); Glucose 179 mg/dL (74-99); Non-African American GFR(CKD) >90 (>60 ml/min/1.73 sqM); Potassium 4.4 mmol/L (3.5-5.1); Sodium 139 mmol/L (137-145); Total Bilirubin 0.7 mg/dL (0.2-1.3); Total Protein 6.9 g/dL (6.3-8.2)
[2021-09-27] MEDS ORDERED: LIDOCAINE 1% INJ 10MG/ML (20 ML MDV) ONE (11:04)
[2021-09-27] MEDS ORDERED: PHENYLEPHRINE-0.9% NACL SYG 1,000 MCG/10 ML SYRINGE ONE (11:04)
[2021-09-27] MEDS ORDERED: PROPOFOL 10 MG/ML 20 ML VIAL IV ONE (11:04)
[2021-09-27] MEDS ORDERED: MIDAZOLAM 2 MG/2 ML VIAL ONE (11:04)
[2021-09-27] MEDS ORDERED: fentaNYL (PF) 50 MCG/ML 2 ML AMP ONE (11:04)
[2021-09-27] MEDS ORDERED: LIDOCAINE 1% INJ 10MG/ML (20 ML MDV) SQ ONE (11:24)
--- NOTE | 2021-09-27 11:58 | P.OP ---
Date of Procedure: 09/27/21 Description of Procedure: Preoperative diagnosis: [Right thigh fluid collection, previous trauma] Postoperative diagnosis: Same Procedure: [Incision and drainage of right thigh seroma, drain placement] Surgeon: Barbara Bailey D.O. EBL: [10 mL] IV fluids: [See records] Urine output: [Not measured] Drains: [15 GUILLERMINA] Complications: [None immediately apparent] Condition: [Stable to recovery] Operative indication and findings: [Patient is a 71-year-old male who previously had a trauma trouble viable. He subsequently ended up with a right thigh fluid collection has been drained multiple times over the course of the past year. It was sent for cytology at some point and found to be serous type fluid. He continued to work and did not have time to go for operative interventions. He presents today because he was ready for the procedure at this time.] Procedure in detail: [Patient is taken the operative suite and placed in supine position. The right thigh was prepped and draped in usual sterile fashion. A preprocedure timeout was performed, all parties were in agreement. Incision was made over the area of most fluctuance and carried down to the level of the subcutaneous tissues. The fascia was open to alleviate the fluid. There was debris from previous hematoma/musculature. There is no purulent drainage. No evidence of infection. The areas copiously irrigated with hydrogen peroxide and normal saline. All portions of the debris removed as best possible. A 15 GUILLERMINA was placed and follow different portion of the skin. The fascia was then reapproximated with interrupted sutures of 3-0 Vicryl. The skin was reapproximated with interrupted vertical mattress sutures of nylon. Pressure dressing was placed. The patient was allowed awaken from anesthesia and transferred to recovery in stable condition having tolerated the procedure well.] Plan - Discharge Summary Discharge Rx Participant: Yes New Discharge Prescriptions: No Action Mometasone/Formoterol [Dulera 200 Mcg-5 Mcg Inhaler] 2 puff INHALATION RT- DAILY metFORMIN HCL [Glucophage] 1,000 mg PO DAILY Glimepiride [Amaryl] 8 mg PO DAILY Venlafaxine HCl [Effexor] 150 mg PO DAILY Atorvastatin [Lipitor] 20 mg PO DAILY Lisinopril-Hctz 20-25 mg [Zestoretic 20-25] 1 tab PO DAILY Discharge Medication List Mometasone/Formoterol [Dulera 200 Mcg-5 Mcg Inhaler] 2 puff INHALATION RT-DAILY 10/25/19 [History] Atorvastatin [Lipitor] 20 mg PO DAILY 02/11/21 [History] Glimepiride [Amaryl] 8 mg PO DAILY 02/11/21 [History] Lisinopril-Hctz 20-25 mg [Zestoretic 20-25] 1 tab PO DAILY 02/11/21 [History] Venlafaxine HCl [Effexor] 150 mg PO DAILY 02/11/21 [History] metFORMIN HCL [Glucophage] 1,000 mg PO DAILY 02/11/21 [History] Follow up Appointment(s)/Referral(s): Barbara Bailey DO [STAFF PHYSICIAN] - 10 Days Activity/Diet/Wound Care/Special Instructions: Keep pressure dressing in place for 48-72 hours. May remove following, continue pressure dressing as long as drain is in place. Monitor drain output daily and keep a log. No showering while drains in place. [id number] medication for pain control Discharge Disposition: HOME SELF-CARE
[2021-09-27 12:51] VITALS: RESP 16
[2021-09-27 13:17] VITALS: BP 130/69; PULSE 64
== END 2021-09-27 14:15 | disposition home or self-care (01) ==
LOC: OR 09:28
PROVIDERS: ATTEND Surgery
DX: T79.2XXA Traumatic secondary and recurrent hemorrhage and seroma, initial encounter (principal); W55.29XA Other contact with cow, initial encounter; J45.909 Unspecified asthma, uncomplicated; E11.9 Type 2 diabetes mellitus without complications; E78.5 Hyperlipidemia, unspecified; I10 Essential (primary) hypertension; Z98.890 Other specified postprocedural states; Z80.9 Family history of malignant neoplasm, unspecified; Z79.84 Long term (current) use of oral hypoglycemic drugs; Z79.899 Other long term (current) drug therapy; Z79.51 Long term (current) use of inhaled steroids; Z91.09 Other allergy status, other than to drugs and biological substances
CPT/HCPCS: 80053; 85025; 10140; J2250; J1100; J0690; J2405; J2001; J3010; J2370; J2704

== ENCOUNTER → 2024-06-16 | Outpatient (CLI) | payer MEDICARE ==
[2024-06-16 14:58] LABS: Partial Thromboplastin Time 24.2 sec (22.0-30.0); Prothrombin Time 11.1 sec (10.0-12.5)
[2024-06-16 18:38] LABS: HCT 41.7 % (39.6-50.0); HGB 13.4 g/dL (13.0-17.0); MCH 30.2 pg (27.0-32.0); MCHC 32.1 g/dL (32.0-37.0); MCV 94.1 FL (80.0-97.0); Mean Platelet Volume 12.3 FL (9.5-12.2); NRBC Per 100 WBC 0 X 10*3/uL (0.00-0.01); Platelet Count 216 X 10*3/uL (140-440); RBC 4.43 X 10*6/uL (4.40-5.60); RDW 12.9 % (11.5-14.5); WBC 7.14 X 10*3/uL (4.50-10.00)
[2024-06-16 19:21] LABS: ALT 28 U/L (10-49); AST 19 U/L (14-35); Albumin 4.4 g/dL (3.8-4.9); Albumin/Globulin Ratio 2.44 Ratio (1.60-3.17); Alkaline Phosphatase 77 U/L (41-126); Blood Urea Nitrogen 22.5 mg/dL (9.0-27.0); Calcium 9.5 mg/dL (8.7-10.3); Carbon Dioxide 26.8 mmol/L (21.6-31.8); Chloride 104 mmol/L (96-109); Globulin 1.8 g/dL (1.6-3.3); Glucose 167 mg/dL (70-110); Potassium 3.9 mmol/L (3.5-5.5); Sodium 144 mmol/L (135-145); Total Bilirubin 0.2 mg/dL (0.3-1.2); Total Protein 6.2 g/dL (6.2-8.2)
== END | disposition home or self-care (01) ==
LOC: LABPAT 13:02
PROVIDERS: ATTEND Orthopaedic Surgery
DX: Z01.812 Encounter for preprocedural laboratory examination (principal); M17.11 Unilateral primary osteoarthritis, right knee; Z22.322 Carrier or suspected carrier of Methicillin resistant Staphylococcus aureus
CPT/HCPCS: 80053; 85027; 85610; 85730; 87070

== ENCOUNTER → 2024-08-18 | Outpatient (CLI) | payer MEDICARE ==
[2024-08-18 10:34] LABS: African American GFR (CKD) 82 (>60 ml/min/1.73 sqM); Blood Urea Nitrogen 39 mg/dL (9-20); Non-African American GFR(CKD) 71 (>60 ml/min/1.73 sqM)
--- NOTE | 2024-08-18 12:34 | CT ---
EXAMINATION TYPE: CT chest w con CT DLP: 677 mGycm, Automated exposure control for dose reduction was used. DATE OF EXAM: 08/18/2024 12:23 PM COMPARISON: CT chest 01/26/2024, CTA chest 02/10/2021 CLINICAL INDICATION:Male, 74 years old with history of R91.1 SOLITARY PULMONARY NODULE; PHH, Solitary pulmonary nodule TECHNIQUE: Multiple axial images were obtained through the chest following the administration of 100 cc of Isovue 300. . Coronal and sagittal reformats reviewed. FINDINGS: LUNGS/ PLEURA: No pleural effusion, pneumothorax, focal consolidation. Right midline 3 mm calcified g ranuloma redemonstrated. Resolution of previously demonstrated 5 mm right upper lobe pulmonary nodule . No new suspicious pulmonary nodules. AIRWAY: Patent and unremarkable.. HEART: Size within normal limits. No pericardial effusion. Small coronary arterial calcifications. MEDIASTINUM: No evidence of adenopathy. VASCULATURE: No aortic aneurysm. Mild atherosclerotic calcification of the aorta and its branches. MUSCULOSKELETAL: No acute osseous abnormalities. Remote healed left posterior second and third rib fr actures. Mild multilevel degenerative disc disease of the visualized spine. SOFT TISSUES/LYMPH NODES: Unremarkable. LOWER NECK: No significant findings. UPPER ABDOMEN: No significant findings. IMPRESSION: 1. No acute thoracic process. 2. Resolution of previously seen right upper lobe 5 mm pulmonary nodule. Probable inflammatory/infect ious nodule. No new suspicious pulmonary nodules. [facility], , 08/18/2024 12:32 PM
== END | disposition home or self-care (01) ==
LOC: RADCTMAIN 09:52
PROVIDERS: ATTEND Family Medicine
DX: R91.1 Solitary pulmonary nodule (principal)
CPT/HCPCS: 36415; 71260; 82565; 84520

== ENCOUNTER → 2025-06-21 | Outpatient (CLI) | payer MEDICARE ==
--- NOTE | 2025-06-21 13:12 | MM ---
Reason for Exam: Clinical finding. Baseline mammogram. Indicated Problems: Pain of the left side (Focal) for 3 Week(s) : at nipple. Prior Study Comparison: Patient's first Mammogram. Tissue Density: There are scattered areas of fibroglandular density. Findings: Analyzed By CAD. Mild subareolar flame-shaped density on the left and trace on the right. There is some tortuous vascularity lateral posterior right breast. No significant mass, suspicious microcalcification, or other discrete abnormality is seen. Overall Assessment: Benign, BI-RAD 2 Management: Clinical Management of the left breast. For the asymmetric mild left-sided gynecomastia. Correlate for possible causes in this patient. Results were given to the patient verbally at the time of exam. [facility], , 06/21/2025 1:09 PM. Electronically signed and approved by: Barbie Deluca M.D. Radiologist
== END | disposition home or self-care (01) ==
LOC: RADMAMWWP 12:28
PROVIDERS: ATTEND Family Medicine
DX: R92.323 Mammographic fibroglandular density, bilateral breasts (principal); D48.62 Neoplasm of uncertain behavior of left breast; N63.42 Unspecified lump in left breast, subareolar
CPT/HCPCS: 77062; 77066